=== PATIENT | female | born 1935 | race Hispanic/Latino ===

== ENCOUNTER 2016-12-29 22:41 | Inpatient (IN) | payer MEDICARE, OTHER ==
[2016-12-29 22:41] VITALS: PULSE 80; BMI 19.7
[2016-12-29 23:24] LABS: CHLORIDE 99 mmol/L (98-107); SODIUM 138 mmol/L (132-148)
[2016-12-29 23:25] LABS: POTASSIUM 4.1 mmol/L (3.6-5.2)
[2016-12-29 23:26] LABS: BASO # 0.1 K/uL (0.0-0.2); BASO % 2.7 % (0.0-2.0); EOS # 0.1 K/uL (0.0-0.7); EOS % 1.8 % (0.0-4.0); HEMATOCRIT 11.8 % (34.0-47.0); LYMPH # 1.4 K/uL (1.0-4.3); LYMPH % 31.5 % (20.0-40.0); MEAN CORPUSCULAR HEMOGLOBIN 34.4 pg (27.0-31.0); MEAN CORPUSCULAR HGB CONC 34.2 g/dL (33.0-37.0); MEAN PLATELET VOLUME 9.4 fL (7.2-11.7); MONO # 0.3 K/uL (0.0-0.8); MONO % 7.5 % (0.0-10.0); NRBC % 1.2 % (0.0-2.0); RED CELL DISTRIBUTION WIDTH 33.1 % (11.5-14.5)
[2016-12-29 23:27] LABS: ALKALINE PHOSPHATASE 68 U/L (38-126); ALT/SGPT 27 U/L (9-52); AST/SGOT 15 U/L (14-36); BILIRUBIN,TOTAL 1.3 mg/dL (0.2-1.3); BLOOD UREA NITROGEN 34 mg/dL (7-17); CARBON DIOXIDE 28 mmol/L (22-30); GFR AFRICAN-AMERICAN > 60; GLUCOSE,RANDOM 113 mg/dL (65-105); TOTAL PROTEIN 6.6 g/dL (6.3-8.3)
[2016-12-29 23:28] LABS: ALB/GLOB RATIO 0.7 (1.0-2.1); CALCIUM 7.9 mg/dl (8.6-10.4)
[2016-12-29 23:29] LABS: INR 1.7; WHITE BLOOD COUNT 4.5 K/uL (4.8-10.8)
[2016-12-29 23:30] LABS: MEAN CELL VOLUME 100.7 fL (81.0-99.0); PLATELET COUNT 299 K/uL (130-400)
--- NOTE | 2016-12-30 00:54 | CP.PCM.CON ---
History of Present Illness - History of Present Illness History of Present Illness: 81 y/o female,[place] resident with h/o chronic anemia,CHF (EF 25-30%0 09/2016,HTN transferred from [place] for Hb <5.In ER Hb is 4 gm/dl.not tachcardiac(not on beta blockers).Initial systolic BP was in the 70's,received fluids .Last BP in ER 96/ 60mmHg.Stool brown in color.Occult blood pending patient denies chest pain,palpitations,shortness of breath or dizziness.Patient was admitted 11/2016 for pneumonia ,at time of admission Hb was 4.7 Review of Systems - Review of Systems Systems not reviewed;Unavailable: Unstable Vital Signs - Constitutional Constitutional: absent: Chills Additional comments: denies loss of apetite but states that she eats very little - EENT Nose/Mouth/Throat: absent: Epistaxis - Cardiovascular Cardiovascular: absent: Chest Pain, Edema, Palpitations, Rapid Heart Rate - Respiratory Respiratory: absent: Cough, Dyspnea - Gastrointestinal Gastrointestinal: absent: Abdominal Pain, Diarrhea - Neurological Neurological: absent: Headaches, Syncope - Hematologic/Lymphatic Hematologic: As Per HPI. absent: Easy Bleeding Past Patient History - Infectious Disease Hx of Infectious Diseases: None - Past Medical History & Family History Past Medical History?: Yes - Past Social History Smoking Status: Never Smoked - CARDIAC Hx Cardiac Disorders: Yes Hx Angina: Yes Hx Atrial Fibrillation: Yes Hx Congestive Heart Failure: Yes Hx Hypertension: Yes Other/Comment: Chronic ischemic heart disease - PULMONARY Hx Chronic Obstructive Pulmonary Disease (COPD): Yes Hx Pneumonia: Yes - NEUROLOGICAL Hx Neurological Disorder: No - HEENT Hx HEENT Problems: Yes Hx Blind: Yes (legally) - RENAL Hx Chronic Kidney Disease: No - ENDOCRINE/METABOLIC Hx Endocrine Disorders: No - HEMATOLOGICAL/ONCOLOGICAL Hx Anemia: Yes - INTEGUMENTARY Hx Dermatological Problems: No - MUSCULOSKELETAL/RHEUMATOLOGICAL Hx Fractures: Yes (R hip fracture w/ surgery) - GASTROINTESTINAL Hx Gastrointestinal Disorders: No Hx Diverticulitis: Yes - GENITOURINARY/GYNECOLOGICAL Hx Genitourinary Disorders: No - PSYCHIATRIC Hx Psychophysiologic Disorder: No Hx Substance Use: No - SURGICAL HISTORY Hx Surgeries: Yes Hx Orthopedic Surgery: Yes (hip surgery as per patient) - ANESTHESIA Hx Anesthesia: Yes Hx Anesthesia Reactions: No Hx Malignant Hyperthermia: No Meds Allergies/Adverse Reactions: Allergies Allergy/AdvReac Type Severity Reaction Status Date / Time aspirin Allergy Verified 11/21/16 02:08 ciprofloxacin [From Cipro] Allergy Verified 11/21/16 02:08 ciprofloxacin HCl Allergy Verified 11/21/16 02:08 [From Cipro] Penicillins Allergy Verified 11/21/16 02:08 cefepime AdvReac Unknown ARRHYTHMIA Verified 11/21/16 02:08 Physical Exam - Constitutional Appears: Non-toxic - Head Exam Head Exam: ATRAUMATIC, NORMAL INSPECTION, NORMOCEPHALIC - Eye Exam Eye Exam: EOMI, Normal appearance, PERRL - ENT Exam ENT Exam: Mucous Membranes Moist - Neck Exam Neck exam: Positive for: Normal Inspection - Respiratory Exam Respiratory Exam: Clear to Auscultation Bilateral, NORMAL BREATHING PATTERN. absent: Accessory Muscle Use - Cardiovascular Exam Cardiovascular Exam: REGULAR RHYTHM, Systolic Murmur. absent: JVD - GI/Abdominal Exam GI & Abdominal Exam: Normal Bowel Sounds, Soft. absent: Tenderness - Extremities Exam Extremities exam: Positive for: normal inspection, pedal pulses present. Negative for: joint swelling, pedal edema - Neurological Exam Neurological exam: Alert, Oriented x3 - Skin Skin Exam: Dry, Pallor Results - Vital Signs Recent Vital Signs: Last Vital Signs Temp 99.9 F H 12/29/16 23:01 Pulse 87 12/29/16 23:01 Resp 19 12/29/16 23:01 BP 70/30 L 12/29/16 23:01 Pulse Ox 100 12/29/16 23:01 - Labs Result Diagrams: 12/29/16 23:14 12/29/16 23:14 Labs: Laboratory Results - last 24 hr 12/29/16 12/29/16 12/30/16 23:14 23:46 00:15 WBC 4.5 L D RBC 1.17 L Hgb 4.0 L* D Hct 11.8 L MCV 100.7 H D MCH 34.4 H MCHC 34.2 RDW 33.1 H Plt Count 299 D MPV 9.4 Neut % (Auto) 56.5 Lymph % (Auto) 31.5 [place] % (Auto) 7.5 Eos % (Auto) 1.8 Baso % (Auto) 2.7 H Neut # 2.5 Lymph # 1.4 [place] # 0.3 Eos # 0.1 Baso # 0.1 PT 19.3 H INR 1.7 APTT 41 H Sodium 138 Potassium 4.1 Chloride 99 Carbon Dioxide 28 Anion Gap 15 BUN 34 H Creatinine 0.8 Est GFR ( Amer) > 60 Est GFR (Non-Af Amer) > 60 Random Glucose 113 H Calcium 7.9 L Total Bilirubin 1.3 AST 15 ALT 27 Alkaline Phosphatase 68 Total Protein 6.6 Albumin 2.6 L Globulin 4.0 H Albumin/Globulin Ratio 0.7 L Stool Occult Blood Negative Blood Type A POSITIVE Antibody Screen Negative - EKG Data EKG Interpreted by: Myself EKG shows normal: Sinus rhythm (sinus arrythmia with nonspecific T wave changes) - Imaging and Cardiology Chest x-ray Status: Pending Assessment & Plan - Assessment and Plan (Free Text) Assessment: 1.severe anemia in patient with Chronic anemia Transfuse PRBC f/u Hb Hematology evaluation B12,FA levels 2.H/o HTN/CHF on diuretics Chest xray pendingj
[2016-12-30 01:33] LABS: EOSINOPHIL 2 % (0-4); NEUTROPHIL 57 % (50-75); NUCLEATED RED BLOOD CELL 1 % (0-0); REACTIVE LYMPHOCYTES 13 % (0-0); TOTAL CELLS COUNTED 100
[2016-12-30 01:34] LABS: LARGE PLATELETS PRESENT
--- NOTE | 2016-12-30 03:07 | C.PDOC ---
History Of Present Illness 81 year old female presents to the ED with abnormal labs that occurred today. Patients fdc measured her hemoglobin to be at 5. Patient notes having severe anemia in the past and c/o general weakness and tiredness. Patient denies any nausea, vomiting, diarrhea, fever, chills, or any other complaints. Chief Complaint (Nursing): Abnormal Labs History Per: Patient History/Exam Limitations: no limitations Onset/Duration Of Symptoms: Hrs Current Symptoms Are (Timing): Still Present Severity: Mild Past Medical History Reviewed: Historical Data, Nursing Documentation, Vital Signs Vital Signs: Last Vital Signs Temp 98.5 F 12/30/16 04:15 Pulse 94 H 12/30/16 04:15 Resp 19 12/30/16 04:15 BP 84/45 L 12/30/16 04:15 Pulse Ox 100 12/30/16 03:13 - Medical History PMH: Anemia, Arthritis (R HIP +SURGERY), Atrial Fibrillation, Back Problems ( fatigue fracture of lumbar region with sequela), Cardia Arrhythmia, CHF, COPD, Diverticulitis, Fractures (R hip fracture w/ surgery), HTN, Pneumonia Denies: Chronic Kidney Disease - [facility] Procedures OPEN REDUC-INT FIX FEMUR (02/22/13) PACKED CELL TRANSFUSION (09/16/14) TRANSFUSE NONAUT RED BLOOD CELLS IN PERIPH VEIN, PERC (11/21/16) Family History: States: Unknown Family Hx - Social History Hx Tobacco Use: No Hx Alcohol Use: No Hx Substance Use: No - Immunization History Hx Tetanus Toxoid Vaccination: No Hx Influenza Vaccination: No Hx Pneumococcal Vaccination: No Review Of Systems Except As Marked, All Systems Reviewed And Found Negative. Constitutional: Negative for: Fever, Chills Gastrointestinal: Negative for: Nausea, Vomiting, Diarrhea Neurological: Positive for: Weakness (General), Numbness (General) Physical Exam - Physical Exam Appears: No Acute Distress Skin: Warm, Dry, Pale Head: Atraumatic, Normacephalic Eye(s): bilateral: Normal Inspection Chest: Symmetrical Cardiovascular: Rhythm Regular, No Murmur Respiratory: Normal Breath Sounds, No Rales, No Rhonchi, No Wheezing Gastrointestinal/Abdominal: Soft, No Tenderness Neurological/Psych: Oriented x3, Normal Speech, Normal Cognition ED Course And Treatment - Laboratory Results Result Diagrams: 12/29/16 23:14 04/09/17 23:14 ECG: Interpreted By Me, Viewed By Me ECG Rhythm: Sinus Rhythm (93), Atrial Fibrillation O2 Sat by Pulse Oximetry: 100 (Room air) Pulse Ox Interpretation: Normal Medical Decision Making Medical Decision Making: Plans: -IV Fluids -EKG -Blood labs -Protonix -Iron -Vit. B12 -Folate -Reassess and disposition ICU was consulted and patient was accepted. Pt consent to transfusion. Disposition - Disposition Disposition: HOSPITALIZED Disposition Time: 12:30 Condition: FAIR - Clinical Impression Clinical Impression: Anemia - Scribe Statement The provider has reviewed the documentation as recorded by the Scribe Leon byrd All medical record entries made by the Scribe were at my direction and personally dictated by me. I have reviewed the chart and agree that the record accurately reflects my personal performance of the history, physical exam, medical decision making, and the department course for this patient. I have also personally directed, reviewed, and agree with the discharge instructions and disposition.
--- NOTE | 2016-12-30 08:51 | RAD ---
HISTORY: new admission, leukopenia COMPARISON: 12/02/2016 FINDINGS: LUNGS: Worsening dense opacification seen within the right upper to mid lung zone as well as the left lung base with associated small to moderate left pleural effusion. Additional milder patchy consolidative changes at the right lung base and left hilar region. Diffuse increased interstitial lung markings with scattered nodules/nodularity throughout both lungs. PLEURA: As above. CARDIOVASCULAR: Cardiomegaly. Calcification at the aortic knob. OSSEOUS STRUCTURES: Degenerative changes in the spine and shoulders. VISUALIZED UPPER ABDOMEN: Normal. OTHER FINDINGS: None. IMPRESSION: Worsening dense opacification seen within the right upper to mid lung zone as well as the left lung base with associated small to moderate left pleural effusion. Additional milder patchy consolidative changes at the right lung base and left hilar region. Diffuse increased interstitial lung markings with scattered nodules/nodularity throughout both lungs.
[2016-12-30] MEDS: Pantoprazole 40 mg EC Tab PO SCH (09:35)
[2016-12-30 11:11] LABS: BASO # 0.1 K/uL (0.0-0.2); BASO % 1.4 % (0.0-2.0); EOS % 0.7 % (0.0-4.0); HEMATOCRIT 26.5 % (34.0-47.0); LYMPH # 0.7 K/uL (1.0-4.3); LYMPH % 16.5 % (20.0-40.0); MEAN CORPUSCULAR HEMOGLOBIN 30.3 pg (27.0-31.0); MEAN PLATELET VOLUME 10.2 fL (7.2-11.7); MONO # 0.3 K/uL (0.0-0.8); MONO % 6.3 % (0.0-10.0); NRBC % 0.7 % (0.0-2.0); RED CELL DISTRIBUTION WIDTH 15.6 % (11.5-14.5); WHITE BLOOD COUNT 4.3 K/uL (4.8-10.8)
[2016-12-30 11:16] LABS: MEAN CELL VOLUME 91.7 fL (81.0-99.0)
[2016-12-30 11:23] LABS: IRON 100 ug/dL (37-170)
--- NOTE | 2016-12-30 11:55 | CP.CCUPN ---
CCU Subjective - Physician Review Subjective (Free Text): Patient was seen and examined at bedside. Patient is alert, awake, and oriented. She complains of chronic fatigue and weakness. Patient was sent from [place] due to hemoglobin of 5. Hemoglobin was 4 in the ED. Patient was transfused 3 units of PRBCs in the ICU. Repeat CBC was 8.8. Patient is stable and order placed to have patient transferred to Med/Surg. CCU Objective - Vital Signs / Intake & Output Vital Signs (Last 4 hours): Vital Signs Temp Pulse Resp BP Pulse Ox 12/30/16 11:02 92 H 19 97/51 L 98 12/30/16 11:00 94 H 19 98 12/30/16 10:47 94 H 21 94/52 L 97 12/30/16 10:33 100 H 23 103/59 L 97 12/30/16 10:17 104 H 21 106/62 91 L 12/30/16 10:02 97 H 18 98/64 L 99 12/30/16 10:00 96 H 19 100 12/30/16 09:47 98 H 21 102/63 96 12/30/16 09:32 106 H 17 101/57 L 94 L 12/30/16 09:17 97 H 15 91/56 L 99 12/30/16 09:02 97 H 18 95/54 L 99 12/30/16 09:00 98.1 F 96 H 15 95/54 L 99 12/30/16 08:47 94 H 16 91/54 L 99 12/30/16 08:46 93 H 17 99 12/30/16 08:32 97 H 12 93/58 L 100 12/30/16 08:30 95 H 16 95/55 L 99 12/30/16 08:17 97 H 15 95/55 L 99 12/30/16 08:02 100 H 20 95/56 L 98 12/30/16 08:00 98.2 F 97 H 17 93/54 L 98 Intake and Output (Last 8hrs): Intake & Output 12/29/16 12/30/16 12/30/16 22:59 06:59 14:59 Intake Total 375 575 Output Total 0 Balance 375 575 Weight 101 lb 6.4 oz Intake: Blood Product 375 575 Red Blood Cells Cpd As1 325 Lr Unit [id number] Red Blood Cells Cpd As1 0 325 Lr Unit [id number] Output: Urine 0 Urine, Voided 0 Other: Voiding Method Incontinent - Physical Exam Physical Exam Limitations: Positive for: Other (cachetic ) Head: Positive for: Atraumatic, Normocephalic Pupils: Positive for: PERRL Extroacular Muscles: Positive for: EOMI Conjunctiva: Positive for: Normal Mouth: Positive for: Dry Pharnyx: Positive for: Normal. Negative for: ERYTHEMA, EXUDATE Neck: Positive for: Normal Range of Motion Respiratory/Chest: Positive for: Decreased Breath Sounds, Rales Cardiovascular: Positive for: Regular Rate and Rhythm, Normal S1, S2 Abdomen: Positive for: Normal Bowel Sounds. Negative for: Tenderness, Distention Upper Extremity: Positive for: Normal Inspection, NORMAL PULSES Lower Extremity: Positive for: Normal Inspection Neurological: Positive for: GCS=15, CN II-XII Intact, Speech Normal Skin: Positive for: Warm, Dry Psychiatric: Positive for: Alert, Oriented x 3 - Medications Active Medications: Active Medications Generic Name Dose Route Start Last Admin Trade Name Freq PRN Reason Stop Dose Admin Albuterol/Ipratropium 3 ml 12/30/16 14:00 Duoneb 3 Mg/0.5 Mg (3 Ml) Ud INH RQ6 REBECCA Guaifenesin 100 mg 12/30/16 11:04 Robitussin PO Q4H PRN Cough Pantoprazole Sodium 40 mg 12/30/16 10:00 12/30/16 09:35 Protonix Ec Tab PO 40 mg DAILY REBECCA Administration - Patient Studies Lab Studies: Lab Studies 12/30/16 12/30/16 Range/Units 11:02 01:25 WBC 4.3 L (4.8-10.8) K/uL RBC 2.89 L (3.80-5.20) Mil/uL Hgb 8.8 L D (11.0-16.0) g/dL Hct 26.5 L (34.0-47.0) % MCV 91.7 D (81.0-99.0) fL MCH 30.3 (27.0-31.0) pg MCHC 33.0 (33.0-37.0) g/dL RDW 15.6 H (11.5-14.5) % Plt Count 274 (130-400) K/uL MPV 10.2 (7.2-11.7) fL Neut % (Auto) 75.1 H (50.0-75.0) % Lymph % (Auto) 16.5 L (20.0-40.0) % [place] % (Auto) 6.3 (0.0-10.0) % Eos % (Auto) 0.7 (0.0-4.0) % Baso % (Auto) 1.4 (0.0-2.0) % Neut # 3.2 (1.8-7.0) K/uL Lymph # 0.7 L (1.0-4.3) K/uL [place] # 0.3 (0.0-0.8) K/uL Eos # 0.0 (0.0-0.7) K/uL Baso # 0.1 (0.0-0.2) K/uL Iron 100 (37-170) ug/dL TIBC 135 L (250-450) ug/dL % Saturation 75 H (20-55) Folate > 20.0 ng/mL Laboratory Results - last 24 hr 12/30/16 12/30/16 01:25 11:02 WBC 4.3 L RBC 2.89 L Hgb 8.8 L D Hct 26.5 L MCV 91.7 D MCH 30.3 MCHC 33.0 RDW 15.6 H Plt Count 274 MPV 10.2 Neut % (Auto) 75.1 H Lymph % (Auto) 16.5 L [place] % (Auto) 6.3 Eos % (Auto) 0.7 Baso % (Auto) 1.4 Neut # 3.2 Lymph # 0.7 L [place] # 0.3 Eos # 0.0 Baso # 0.1 Iron 100 TIBC 135 L % Saturation 75 H Folate > 20.0 Critical Care Progress Note - Nutrition Nutrition: Nutrition Category Date Time Status Dysphagia/Modified Consistency Diet [DIET] Diets 12/30/16 Dinner Active Assessment/Plan - Assessment and Plan (Free Text) Assessment: 81 y/o female, with PMHx: of chronic anemia, chronic neutropenia, HTN, and CHF ( EF 25-30% 09/2016) presents for HB< 5, blood pressure 70/30, not tachycardiac on admission. Plan: Neuro: Alert, awake, oriented x 3 Monitor Pulm: Hx of CHF (EF 25-30% 09/2016) CXR: Worsening dense opacification seen within the right upper to mid lung zone as well as the left lung base with associated small to moderate left pleural effusion. Additional milder patchy consolidative changes at the right lung base and left hilar region. Diffuse increased interstitial lung markings with scattered nodules/nodularity throughout both lungs. Hx of COPD: restarted home meds CV: CHF (EF 25-30% 09/2016) GI: Stool occult - negative Dysphagia diet Heme: Chronic Neutropenia Initial hemoglobin of 4, s/p 3 units PRBCs, hemoglobin of 8.8 now. Folate: >20, TIBC: 135, % saturation: 75 PT/OT Prophylaxis: GI: Protonix DVT: Contraindicated, SCDs Patient is stable and order placed to have patient transferred to Med/Surg. Mk [address] Dr[address] DO, PGY-1
[2016-12-30] MEDS: guaiFENesin 100 mg/5 ml Syrup UD PO PRN (14:34)
--- NOTE | 2016-12-30 19:03 | CP.PCM.HP ---
History of Present Illness - History of Present Illness History of Present Illness: 81-year-old female, [place] resident with history of chronic anemia, CHF (EF 25-30% ), hypertension transferred from [place] for Hb <5. In the ER Hb is 4 g/dl. Not tachycardia(not on beta penelope). Initial systolic BP was in the 70s, received fluids. Last BP in ER 96/60 mmHg. Stool brown in color. Occult blood pending. Patient denies chest pain, palpitation, SOB or dizziness. Patient was admitted 11/2016 for pneumonia. At time of admission Hb was 4.7. Present on Admission - Present on Admission Any Indicators Present on Admission: No Past Patient History - Infectious Disease Hx of Infectious Diseases: None - Past Medical History & Family History Past Medical History?: Yes - Past Social History Smoking Status: Never Smoked - CARDIAC Hx Atrial Fibrillation: Yes Hx Cardia Arrhythmia: Yes Hx Congestive Heart Failure: Yes Hx Hypertension: Yes - PULMONARY Hx Chronic Obstructive Pulmonary Disease (COPD): Yes Hx Pneumonia: Yes - NEUROLOGICAL Hx Neurological Disorder: No - HEENT Hx HEENT Problems: Yes Hx Blind: Yes (legally) - RENAL Hx Chronic Kidney Disease: No - ENDOCRINE/METABOLIC Hx Endocrine Disorders: No - HEMATOLOGICAL/ONCOLOGICAL Hx Anemia: Yes - INTEGUMENTARY Hx Dermatological Problems: No - MUSCULOSKELETAL/RHEUMATOLOGICAL Hx Arthritis: Yes (R HIP +SURGERY) Hx Fractures: Yes (R hip fracture w/ surgery) - GASTROINTESTINAL Hx Diverticulitis: Yes - GENITOURINARY/GYNECOLOGICAL Hx Genitourinary Disorders: No - PSYCHIATRIC Hx Substance Use: No - SURGICAL HISTORY Hx Surgeries: Yes Hx Orthopedic Surgery: Yes (hip surgery as per patient) - ANESTHESIA Hx Anesthesia: Yes Hx Anesthesia Reactions: No Hx Malignant Hyperthermia: No Meds Allergies/Adverse Reactions: Allergies Allergy/AdvReac Type Severity Reaction Status Date / Time aspirin Allergy Verified 11/21/16 02:08 ciprofloxacin [From Cipro] Allergy Verified 11/21/16 02:08 ciprofloxacin HCl Allergy Verified 11/21/16 02:08 [From Cipro] Penicillins Allergy Verified 11/21/16 02:08 cefepime AdvReac Unknown ARRHYTHMIA Verified 11/21/16 02:08 Physical Exam - Constitutional Appears: Well - Head Exam Head Exam: ATRAUMATIC, NORMAL INSPECTION, NORMOCEPHALIC - Eye Exam Eye Exam: EOMI, Normal appearance, PERRL Pupil Exam: NORMAL ACCOMODATION, PERRL - ENT Exam ENT Exam: Mucous Membranes Moist, Normal Exam - Neck Exam Neck exam: Positive for: Normal Inspection - Respiratory Exam Respiratory Exam: Decreased Breath Sounds - Cardiovascular Exam Cardiovascular Exam: REGULAR RHYTHM, +S1, +S2 - GI/Abdominal Exam GI & Abdominal Exam: Diminished Bowel Sounds, Soft - Rectal Exam Rectal Exam: Deferred Results - Vital Signs Recent Vital Signs: Last Vital Signs Temp 99.3 F 12/30/16 16:00 Pulse 97 H 12/30/16 17:00 Resp 21 12/30/16 17:00 BP 95/57 L 12/30/16 16:08 Pulse Ox 99 12/30/16 17:00 - Labs Result Diagrams: 01/08/17 11:15 01/08/17 11:15 Labs: Laboratory Results - last 24 hr 12/30/16 12/30/16 01:25 11:02 WBC 4.3 L RBC 2.89 L Hgb 8.8 L D Hct 26.5 L MCV 91.7 D MCH 30.3 MCHC 33.0 RDW 15.6 H Plt Count 274 MPV 10.2 Neut % (Auto) 75.1 H Lymph % (Auto) 16.5 L [place] % (Auto) 6.3 Eos % (Auto) 0.7 Baso % (Auto) 1.4 Neut # 3.2 Lymph # 0.7 L [place] # 0.3 Eos # 0.0 Baso # 0.1 Iron 100 TIBC 135 L % Saturation 75 H Vitamin B12 707 Folate > 20.0 Assessment & Plan (1) Anemia Status: Acute (2) CHF (congestive heart failure) Status: Acute (3) Chest pain Status: Acute (4) Compression deformity of vertebra Status: Acute (5) Contusion of wrist Status: Acute (6) Dehydration Status: Acute (7) Diastolic CHF, acute on chronic Status: Acute (8) Edema Status: Acute (9) Fatigue Status: Acute (10) Fever Status: Acute (11) Lung mass Status: Acute (12) MRSA (methicillin resistant Staphylococcus aureus) carrier Status: Acute (13) Pancytopenia Status: Acute (14) Pneumonia Status: Acute (15) Low back pain Status: Chronic (16) Severe anemia Status: Chronic - Assessment and Plan (Free Text) Plan: Consult ophthalmic asst Consult ID Follow-up S/P Transfuse 3 units of PRBC IV fluids Iron Vitamin B-12 Folate
[2016-12-31] MEDS: Albuterol-Ipratrop 3 mg / 0.5 (3 ml) UD INH SCH ×4 (01:42→19:34)
--- NOTE | 2016-12-31 10:13 | CP.PCM.PN ---
Subjective - Date & Time of Evaluation Date of Evaluation: 12/31/16 Time of Evaluation: 11:20 - Subjective Subjective: clinically same Objective - Vital Signs/Intake and Output Vital Signs (last 24 hours): Temp Pulse Resp BP Pulse Ox 97.6 F 84 20 79/44 L 97 12/31/16 07:00 12/31/16 07:39 12/31/16 07:00 12/31/16 07:39 12/31/16 07:00 Intake and Output: 12/31/16 12/31/16 06:59 18:59 Intake Total 0 Balance 0 - Medications Medications: Current Medications Acetaminophen (Tylenol 325mg Tab) 650 mg PO Q6 PRN PRN Reason: Pain, moderate (4-7) Albuterol/Ipratropium (Duoneb 3 Mg/0.5 Mg (3 Ml) Ud) 3 ml INH RQ6 REBECCA Last Admin: 12/31/16 07:40 Dose: 3 ml Guaifenesin (Robitussin) 100 mg PO Q4H PRN PRN Reason: Cough Last Admin: 12/30/16 14:34 Dose: 100 mg Pantoprazole Sodium (Protonix Ec Tab) 40 mg PO DAILY REBECCA Last Admin: 12/30/16 09:35 Dose: 40 mg - Labs Labs: 12/30/16 11:02 PT 19.3 SECONDS (9.7-12.2) H 12/29/16 23:14 INR 1.7 12/29/16 23:14 APTT 41 SECONDS (21-34) H 12/29/16 23:14 - Constitutional Appears: Well - Head Exam Head Exam: ATRAUMATIC, NORMAL INSPECTION, NORMOCEPHALIC - Eye Exam Eye Exam: EOMI, Normal appearance, PERRL Pupil Exam: NORMAL ACCOMODATION, PERRL - ENT Exam ENT Exam: Mucous Membranes Moist, Normal Exam - Neck Exam Neck Exam: Full ROM, Normal Inspection. absent: Lymphadenopathy - Respiratory Exam Respiratory Exam: Decreased Breath Sounds - Cardiovascular Exam Cardiovascular Exam: REGULAR RHYTHM, +S1, +S2 - GI/Abdominal Exam GI & Abdominal Exam: Soft, Diminished Bowel Sounds - Rectal Exam Rectal Exam: Deferred Assessment and Plan - Assessment and Plan (Free Text) Plan: severe anemia in patient with Chronic anemia Transfuse PRBC iv fluid f/u Hb Hematology evaluation B12,FA levels H/o HTN/CHF Guaifenesin Mupirocin on diuretics Cxr pending
[2016-12-31] MEDS: Pantoprazole 40 mg EC Tab PO SCH (10:28)
[2016-12-31] MEDS: guaiFENesin 100 mg/5 ml Syrup UD PO PRN (10:29)
[2016-12-31] MEDS: Sodium Chloride 0.9% 1,000 ML IV SCH (13:24)
--- NOTE | 2016-12-31 13:49 | CT ---
CT abdomen and pelvis without IV contrast Indication: abdominal pain/hgb 4.5 Technique: Contiguous axial images of the abdomen and pelvis. No oral or IV contrast administered. Coronal and Sagittal reformats generated and reviewed. This CT exam was performed using 1 or more of the falling dose reduction techniques: Automated exposure control, adjustment of the MAA and/or kV according to patient size, and/or use of iterative reconstruction technique. Radiation dose: Total exam DLP = 346.71 mGy-cm. Comparison: CT of the abdomen and pelvis without contrast performed 05/24/13 Findings: The lung bases reveal moderate bilateral pleural effusions, consolidations, and fibrotic changes. Partially imaged cardiomegaly. Dense atherosclerotic calcifications. Large abdominal and pelvic ascites. Anasarca. Nodular hepatic contour. Intrahepatic biliary ductal dilatation. Indeterminate 1.0 cm left hepatic lobe (series 3, image 58) and 1.1 cm right inferior hepatic lobe hypodense lesions (Series 3, image 76). 7 mm hypodensity within the anterior left hepatic lobe (series 3, image 40). Cholelithiasis. Marked enlargement and nodules, left adrenal gland. The unenhanced spleen, kidneys, pancreas, and right adrenal gland appear unremarkable. The stomach is nondistended. Moderate hiatal hernia. The bowel loops appear within normal limits of caliber without evidence of intestinal obstruction. There is no definite free air. Uterus is present. Under distended urinary bladder limits evaluation. Metallic stephanie and screw fixation of the right femur. Diffuse osseous demineralization. Degenerative changes of the spine and left hip. T12 and L2 compression fractures. Impression: Moderate bilateral pleural effusions, consolidations, and fibrosis. Partially imaged cardiomegaly. Dense atherosclerotic calcifications. Large abdominal and pelvic ascites. Anasarca. Nodular hepatic contour may be seen in the setting of cirrhosis. Intrahepatic biliary ductal dilatation. Indeterminate 1.0 cm left hepatic lobe and 1.1 cm right inferior hepatic lobe hypodense lesions. 7 mm hypodensity within the anterior left hepatic lobe. Recommend further evaluation with dedicated cross-sectional CT of the liver Cholelithiasis. Marked enlargement and nodules, left adrenal gland. Similar in appearance to CT performed 05/24/13 Recommend dedicated cross-sectional imaging for further characterization if not already performed. Moderate hiatal hernia. Metallic stephanie and screw fixation of the right femur. Diffuse osseous demineralization. Degenerative changes of the spine and left hip. T12 and L2 compression fractures.
[2017-01-01] MEDS: Albuterol-Ipratrop 3 mg / 0.5 (3 ml) UD INH SCH ×4 (01:04→20:25)
[2017-01-01] MEDS: Sodium Chloride 0.9% 1,000 ML IV SCH ×2 (05:52→13:24)
[2017-01-01 08:17] LABS: BASO # 0.1 K/uL (0.0-0.2); BASO % 2.5 % (0.0-2.0); EOS # 0.1 K/uL (0.0-0.7); EOS % 1.6 % (0.0-4.0); HEMATOCRIT 24.1 % (34.0-47.0); LYMPH # 0.8 K/uL (1.0-4.3); MEAN CELL VOLUME 93.5 fL (81.0-99.0); MEAN CORPUSCULAR HEMOGLOBIN 31.1 pg (27.0-31.0); MEAN CORPUSCULAR HGB CONC 33.3 g/dL (33.0-37.0); MEAN PLATELET VOLUME 9.7 fL (7.2-11.7); MONO # 0.3 K/uL (0.0-0.8); MONO % 7.4 % (0.0-10.0); NRBC % 0.8 % (0.0-2.0); RED CELL DISTRIBUTION WIDTH 16.1 % (11.5-14.5); WHITE BLOOD COUNT 4.1 K/uL (4.8-10.8)
[2017-01-01] MEDS ORDERED: Azithromycin 500mg/250ML NS 250 ML IVPB STA (11:37)
[2017-01-01] MEDS ORDERED: Moxifloxacin IV 400mg/250ml NS 250 ML IVPB SCH (11:45)
[2017-01-01] MEDS: Mupirocin 2% Ointment (NASAL) NAS SCH ×2 (12:11→18:37)
[2017-01-01] MEDS: Pantoprazole 40 mg EC Tab PO SCH (12:19)
--- NOTE | 2017-01-01 14:07 | CP.PCM.CON ---
<Hector Simons - Last Filed: 01/01/17 14:24> History of Present Illness - History of Present Illness History of Present Illness: PGY4 GI Fellow Consult Note Patient is an 81yo female with PMHx significant for chronic anemia with suspicion for MDS (not biopsy proven), CHF (EF 35%), COPD, HTN and recent finding of a questionable RUL lung lesion on prior admissions who presented from [place] with severe anemia noted on CBC. The patient is a poor historian. The patient has had nearly identical admissions in the past. She has refused work up for multiple medical issues including her lung lesion and suspected MDS and per EMR, has even refused blood transfusions until she is profoundly dyspneic. At [place], patient was found to be SOB and noted to have HGB of 5 on CBC. She was transferred to our facility where she was admitted initially to ICU and transfused 3 units PRBCs with appropriate response in HGB to 8.8. She denies any overt blood loss such as hematochezia, melena, hematemesis, hematuria. Does admit to modest weight loss over the last year, nausea and some chest/abdominal discomfort after meals. Of note, on CT A/P performed yesterday does raise suspicion for cirrhosis given nodular contour of liver and there are multiple liver lesions noted with largest being 1.1cm. She also has moderate abdominal ascites. PMHx: See HPI PSHx: Right femur ORIF FHx: Denies Social: Denies tobacco, EtOH or illicit drug use presently or previously Endo: Denies prior endoscopic evaluation Review of Systems - Constitutional Constitutional: Weight Loss. absent: Anorexia, Chills, Fever - EENT Eyes: absent: Change in Vision Nose/Mouth/Throat: absent: Sore Throat - Cardiovascular Cardiovascular: Chest Pain, Dyspnea. absent: Palpitations - Respiratory Respiratory: Dyspnea. absent: Cough, Excessive Mucous Production - Gastrointestinal Gastrointestinal: Abdominal Pain, Nausea. absent: Constipation, Cramping, Diarrhea, Dyspepsia, Dysphagia, Hematemesis, Hematochezia, Melena, Odynophagia, Vomiting - Genitourinary Genitourinary: absent: Dysuria, Urinary Frequency, Urinary Urgency - Musculoskeletal Musculoskeletal: absent: Back Pain, Neck Pain - Integumentary Integumentary: absent: New Lesions, Rash - Neurological Neurological: absent: Dizziness, Numbness, Focal Weakness - Psychiatric Psychiatric: absent: Anxiety, Depression - Endocrine Endocrine: absent: Polydipsia, Polyphagia, Polyuria - Hematologic/Lymphatic Hematologic: absent: Easy Bleeding, Easy Bruising, Lymphadenopathy Past Patient History - Infectious Disease Hx of Infectious Diseases: None - Past Medical History & Family History Past Medical History?: Yes - Past Social History Smoking Status: Never Smoked - CARDIAC Hx Congestive Heart Failure: Yes - PULMONARY Hx Chronic Obstructive Pulmonary Disease (COPD): Yes - NEUROLOGICAL Hx Neurological Disorder: No - HEENT Hx HEENT Problems: Yes Hx Blind: Yes (legally) - RENAL Hx Chronic Kidney Disease: No - ENDOCRINE/METABOLIC Hx Endocrine Disorders: No - HEMATOLOGICAL/ONCOLOGICAL Hx Anemia: Yes - INTEGUMENTARY Hx Dermatological Problems: No - MUSCULOSKELETAL/RHEUMATOLOGICAL Hx Arthritis: Yes - GASTROINTESTINAL Hx Diverticulitis: Yes - GENITOURINARY/GYNECOLOGICAL Hx Genitourinary Disorders: No - PSYCHIATRIC Hx Substance Use: No - SURGICAL HISTORY Hx Surgeries: Yes Hx Orthopedic Surgery: Yes (hip surgery as per patient) - ANESTHESIA Hx Anesthesia: Yes Hx Anesthesia Reactions: No Hx Malignant Hyperthermia: No Meds Allergies/Adverse Reactions: Allergies Allergy/AdvReac Type Severity Reaction Status Date / Time aspirin Allergy Verified 11/21/16 02:08 ciprofloxacin [From Cipro] Allergy Verified 11/21/16 02:08 ciprofloxacin HCl Allergy Verified 11/21/16 02:08 [From Cipro] Penicillins Allergy Verified 11/21/16 02:08 cefepime AdvReac Unknown ARRHYTHMIA Verified 11/21/16 02:08 - Medications Medications: Current Medications Acetaminophen (Tylenol 325mg Tab) 650 mg PO Q6 PRN PRN Reason: Pain, moderate (4-7) Last Admin: 12/31/16 10:28 Dose: 650 mg Albuterol/Ipratropium (Duoneb 3 Mg/0.5 Mg (3 Ml) Ud) 3 ml INH RQ6 [facility] Last Admin: 01/01/17 13:36 Dose: 3 ml Guaifenesin (Robitussin) 100 mg PO Q4H PRN PRN Reason: Cough Last Admin: 12/31/16 10:29 Dose: 100 mg Mupirocin (Bactroban 2% Nasal) 0.5 gm JENNIFER BID [facility] Last Admin: 01/01/17 12:11 Dose: 0.5 gm Pantoprazole Sodium (Protonix Ec Tab) 40 mg PO DAILY [facility] Last Admin: 01/01/17 12:19 Dose: 40 mg Physical Exam - Constitutional Appears: Non-toxic, Chronically Ill - Eye Exam Eye Exam: EOMI, PERRL - ENT Exam ENT Exam: Mucous Membranes Dry - Respiratory Exam Respiratory Exam: Rales. absent: Clear to Auscultation Bilateral, Rhonchi, Wheezes - Cardiovascular Exam Cardiovascular Exam: RRR, +S1, +S2 - GI/Abdominal Exam GI & Abdominal Exam: Distended, Normal Bowel Sounds, Soft. absent: Firm, Guarding, Hernia, Organomegaly, Rigid, Tenderness - Extremities Exam Extremities exam: Positive for: normal inspection. Negative for: pedal edema - Neurological Exam Neurological exam: Alert Additional comments: AAOx1 (person) - Psychiatric Exam Psychiatric exam: Normal Affect, Normal Mood - Skin Skin Exam: Dry, Warm Results - Vital Signs Recent Vital Signs: Last Vital Signs Temp 97.4 F L 01/01/17 07:00 Pulse 100 H 01/01/17 07:00 Resp 18 01/01/17 07:00 BP 81/58 L 01/01/17 07:00 Pulse Ox 99 01/01/17 07:00 - Labs Result Diagrams: 01/01/17 08:12 12/29/16 23:14 Labs: Laboratory Results - last 24 hr 01/01/17 08:12 WBC 4.1 L RBC 2.57 L Hgb 8.0 L Hct 24.1 L MCV 93.5 MCH 31.1 H MCHC 33.3 RDW 16.1 H Plt Count 212 MPV 9.7 Neut % (Auto) 69.5 Lymph % (Auto) 19.0 L Winston % (Auto) 7.4 Eos % (Auto) 1.6 Baso % (Auto) 2.5 H Neut # 2.8 Lymph # 0.8 L Winston # 0.3 Eos # 0.1 Baso # 0.1 Assessment & Plan - Assessment and Plan (Free Text) Assessment: Patient is an 81yo female with PMHx significant for chronic anemia with suspicion for MDS (not biopsy proven), CHF (EF 35%), COPD, HTN and recent finding of a questionable RUL lung lesion on prior admissions who presented from [place] with severe anemia noted on CBC. -Chronic recurrent severe anemia with suspicion for MDS, pt refusing work up to date -Nodular liver contour and ascites concerning for cirrhosis; possibly 2/2 viral hepatitis or cardiac etiology - no know EtOH history -Liver lesions noted on CT scan -Prior documented RUL lung lesion, pt refused bronchoscopy previously Plan: -Triple phase CT of liver ordered -Recommend dx/tx paracentesis - please send fluid for cell count, C&S, total protein, albumin -Check hepatitis serologies -Patient has never had screening colonoscopy - in the absence of overt bleeding , would not recommend while inpatient and patient has refused invasive work up/ procedures previously; 4 negative FOBT in the past 6 months -Monitor H/H, encourage routine bi-monthly CBC per Dr Patton's prior recommendations -On protonix 40mg PO QAMAC -Will follow - Date & Time Date: 01/01/17 Time: 14:00 <Will George - Last Filed: 01/01/17 15:38> Meds - Medications Medications: Current Medications Acetaminophen (Tylenol 325mg Tab) 650 mg PO Q6 PRN PRN Reason: Pain, moderate (4-7) Last Admin: 12/31/16 10:28 Dose: 650 mg Albuterol/Ipratropium (Duoneb 3 Mg/0.5 Mg (3 Ml) Ud) 3 ml INH RQ6 [facility] Last Admin: 01/01/17 13:36 Dose: 3 ml Guaifenesin (Robitussin) 100 mg PO Q4H PRN PRN Reason: Cough Last Admin: 12/31/16 10:29 Dose: 100 mg Azithromycin 500 mg/ Sodium (Chloride) 250 mls @ 167 mls/hr IVPB Q24H [facility] Mupirocin (Bactroban 2% Nasal) 0.5 gm JENNIFER BID [facility] Last Admin: 01/01/17 12:11 Dose: 0.5 gm Pantoprazole Sodium (Protonix Ec Tab) 40 mg PO DAILY [facility] Last Admin: 01/01/17 12:19 Dose: 40 mg Results - Vital Signs Recent Vital Signs: Last Vital Signs Temp 97.4 F L 01/01/17 07:00 Pulse 100 H 01/01/17 07:00 Resp 18 01/01/17 07:00 BP 91/63 L 01/01/17 15:10 Pulse Ox 99 01/01/17 07:00 - Labs Result Diagrams: 01/01/17 08:12 12/29/16 23:14 Labs: Laboratory Results - last 24 hr 01/01/17 08:12 WBC 4.1 L RBC 2.57 L Hgb 8.0 L Hct 24.1 L MCV 93.5 MCH 31.1 H MCHC 33.3 RDW 16.1 H Plt Count 212 MPV 9.7 Neut % (Auto) 69.5 Lymph % (Auto) 19.0 L Winston % (Auto) 7.4 Eos % (Auto) 1.6 Baso % (Auto) 2.5 H Neut # 2.8 Lymph # 0.8 L Winston # 0.3 Eos # 0.1 Baso # 0.1 Attending/Attestation - Attestation I have personally seen and examined this patient.: Yes I have fully participated in the care of the patient.: Yes I have reviewed all pertinent clinical information: Yes Notes (Text): 01/01/17 15:21 I have seen and examined patient with GI fellow. Agree with above documentation with the following additions. In brief, this is a 81 year old female with history of CHF, MDS, chronic anemia, COPD with pulmonary lesion, HTN who is sent from senior care with progressive dyspnea on exertion in the setting of worsening anemia. At nursing facility she was complaining of worsening dyspnea along with mid sternal chest pain for the past 2 days. She also reports mild generalized abdominal pain with nausea but denies vomiting, diarrhea, fever/chills, weight loss, rectal bleeding, or change in bowel habits. She was apparently recently diagnosed with a pulmonary lesion, though has supposedly refused further workup. No prior endoscopic evaluation. Family history: reviewed with patient, denies history of GI malignancy Anemia, chronic disease CHF COPD / HTN Cirrhosis, unclear etiology CT imaging reviewed by me showing large ascites, R and L lobe hypoechoic lesions , cholelithiasis, marked enlargement of adrenal gland, degenerative joint disease - Low sodium diet as tolerated - Continue to monitor H/H, s/p PRBC transfusion - Suggest hematology evaluation, patient previously followed by Dr. Patton for treatment of MDS - Obtain viral hepatitis panel - Obtain diagnostic paracentesis given cirrhosis of unclear etiology - Obtain triple phase liver CT for further evaluation of hepatic lesions - Patient would likely benefit from endoscopic evaluation with colonoscopy, however will defer for time being given clinical condition. Will continue to monitor patient clinical course.
[2017-01-01] MEDS ORDERED: Iodixanol 320 MG/ML 100 ML BOTTLE IV ONE (15:03)
[2017-01-01] MEDS ORDERED: MethylPREDNISolone 40 mg Vial IVP STA (15:05)
[2017-01-01] MEDS ORDERED: Albuterol-Ipratrop 3 mg / 0.5 (3 ml) UD INH STA (15:06)
--- NOTE | 2017-01-01 15:50 | CP.PCM.PN ---
<[place] - Last Filed: 01/01/17 17:08> Subjective - Date & Time of Evaluation Date of Evaluation: 01/01/17 Time of Evaluation: 03:20 - Subjective Subjective: HOE RUNNER was called at 15:20 for SOB and desaturation Patient began to become short of breath. Duoneb breathing treatment was ordered stat. CXR, solumedrol, Lasix, and azithromycin was ordered stat by STATUS CONTROLLER. Patient did not improve, she was on non-rebreather at that time. Respiratory was called and patient was placed on BiPAP 18/ with FiO2 100%. Patient began to improve and calm down. CXR showed no significant interval change of right upper lobe consolidation, persistent cardiomegaly and pulm venous congestion. Patient was changed to BiPAP setting 08/27 with FiO2 40%. patient improved further and HOE RUNNER ended. Patient was transferred to telemetry and Dr. Anh Herrera was notified. VS: 98F, 112, 99/67, 18, 100% on BiPAP PE: HEENT: NCAT, mucous membranes moist Resp: decreased breath sounds and rales Cardio: Tachycardic, +S1, +S2 Abd: +BS, soft, nontender Neuro: AAO x 3 Objective - Vital Signs/Intake and Output Vital Signs (last 24 hours): Temp Pulse Resp BP Pulse Ox 97.4 F L 93 H 18 91/63 L 99 01/01/17 07:00 01/01/17 15:44 01/01/17 07:00 01/01/17 15:10 01/01/17 07:00 Intake and Output: 01/01/17 01/01/17 06:59 18:59 Intake Total 1190 Balance 1190 - Medications Medications: Current Medications Acetaminophen (Tylenol 325mg Tab) 650 mg PO Q6 PRN PRN Reason: Pain, moderate (4-7) Last Admin: 12/31/16 10:28 Dose: 650 mg Albuterol/Ipratropium (Duoneb 3 Mg/0.5 Mg (3 Ml) Ud) 3 ml INH RQ6 [facility] Last Admin: 01/01/17 13:36 Dose: 3 ml Guaifenesin (Robitussin) 100 mg PO Q4H PRN PRN Reason: Cough Last Admin: 12/31/16 10:29 Dose: 100 mg Azithromycin 500 mg/ Sodium (Chloride) 250 mls @ 167 mls/hr IVPB Q24H [facility] Mupirocin (Bactroban 2% Nasal) 0.5 gm JENNIFER BID [facility] Last Admin: 01/01/17 12:11 Dose: 0.5 gm Pantoprazole Sodium (Protonix Ec Tab) 40 mg PO DAILY [facility] Last Admin: 01/01/17 12:19 Dose: 40 mg - Labs Labs: 01/01/17 08:12 PT 19.3 SECONDS (9.7-12.2) H 12/29/16 23:14 INR 1.7 12/29/16 23:14 APTT 41 SECONDS (21-34) H 12/29/16 23:14 <Lani Montes V - Last Filed: 04/21/17 22:22> Objective - Vital Signs/Intake and Output Vital Signs (last 24 hours): Temp Pulse Resp BP Pulse Ox 98.2 F 60 20 89/59 L 93 L 01/15/17 23:20 01/15/17 23:20 01/15/17 23:20 01/15/17 23:20 01/15/17 23:20 - Labs Labs: 01/08/17 11:15 01/08/17 11:15 PT 18.7 SECONDS (9.7-12.2) H 01/06/17 10:58 INR 1.6 01/06/17 10:58 APTT 50 SECONDS (21-34) H 01/03/17 11:24 Attending/Attestation - Attestation Notes (Text): Hospitalist Note: Responded to HOE RUNNER with house resident electronic warfare technical. Patient stabilized on 01/01/17 as noted in resident's note and primary attending, Dr. Anh Herrera notified on . <Ferny Herrera - Last Filed: 04/22/17 16:14> Subjective - Date & Time of Evaluation Date of Evaluation: 04/22/17 Time of Evaluation: 08:00 Objective - Vital Signs/Intake and Output Vital Signs (last 24 hours): Temp Pulse Resp BP Pulse Ox 98.2 F 60 20 89/59 L 93 L 01/15/17 23:20 01/15/17 23:20 01/15/17 23:20 01/15/17 23:20 01/15/17 23:20 - Labs Labs: 01/08/17 11:15 01/08/17 11:15 PT 18.7 SECONDS (9.7-12.2) H 01/06/17 10:58 INR 1.6 01/06/17 10:58 APTT 50 SECONDS (21-34) H 01/03/17 11:24 - Constitutional Appears: Well - Head Exam Head Exam: ATRAUMATIC, NORMAL INSPECTION, NORMOCEPHALIC - Eye Exam Eye Exam: EOMI, Normal appearance, PERRL Pupil Exam: NORMAL ACCOMODATION, PERRL - ENT Exam ENT Exam: Mucous Membranes Moist, Normal Exam - Neck Exam Neck Exam: Full ROM, Normal Inspection. absent: Lymphadenopathy - Respiratory Exam Respiratory Exam: Decreased Breath Sounds - Cardiovascular Exam Cardiovascular Exam: REGULAR RHYTHM, +S1, +S2 - GI/Abdominal Exam GI & Abdominal Exam: Soft, Diminished Bowel Sounds - Rectal Exam Rectal Exam: Deferred Assessment and Plan (1) Anemia Status: Acute (2) CHF (congestive heart failure) Status: Acute (3) Chest pain Status: Acute (4) Compression deformity of vertebra Status: Acute (5) Contusion of wrist Status: Acute (6) Dehydration Status: Acute (7) Diastolic CHF, acute on chronic Status: Acute (8) Edema Status: Acute (9) Fatigue Status: Acute (10) Fever Status: Acute (11) Lung mass Status: Acute (12) MRSA (methicillin resistant Staphylococcus aureus) carrier Status: Acute (13) Pancytopenia Status: Acute (14) Pneumonia Status: Acute (15) Low back pain Status: Chronic (16) Severe anemia Status: Chronic
--- NOTE | 2017-01-01 15:56 | RAD ---
HISTORY: Dyspnea COMPARISON: 12/30/2016 FINDINGS: LUNGS: There is persistent right upper lobe consolidation. Lung markings are accentuated. PLEURA: No significant right pleural effusion. No pneumothorax. There is blunting of the left costophrenic angle. CARDIOVASCULAR: There is moderate cardiomegaly. Atherosclerotic aortic arch calcifications are present. . OSSEOUS STRUCTURES: No significant abnormalities. VISUALIZED UPPER ABDOMEN: Normal. OTHER FINDINGS: None. IMPRESSION: No significant interval change in right upper lobe consolidation. Persistent cardiomegaly and pulmonary venous congestion. Suspect small left pleural effusion.
--- NOTE | 2017-01-01 16:48 | CP.PCM.PN ---
Subjective - Date & Time of Evaluation Date of Evaluation: 01/01/17 Time of Evaluation: 11:00 - Subjective Subjective: cli Objective - Vital Signs/Intake and Output Vital Signs (last 24 hours): Temp Pulse Resp BP Pulse Ox 97.4 F L 93 H 18 91/63 L 99 01/01/17 07:00 01/01/17 15:44 01/01/17 07:00 01/01/17 15:10 01/01/17 07:00 Intake and Output: 01/01/17 01/01/17 06:59 18:59 Intake Total 1190 Balance 1190 - Medications Medications: Current Medications Acetaminophen (Tylenol 325mg Tab) 650 mg PO Q6 PRN PRN Reason: Pain, moderate (4-7) Last Admin: 12/31/16 10:28 Dose: 650 mg Albuterol/Ipratropium (Duoneb 3 Mg/0.5 Mg (3 Ml) Ud) 3 ml INH RQ6 [facility] Last Admin: 01/01/17 13:36 Dose: 3 ml Guaifenesin (Robitussin) 100 mg PO Q4H PRN PRN Reason: Cough Last Admin: 12/31/16 10:29 Dose: 100 mg Azithromycin 500 mg/ Sodium (Chloride) 250 mls @ 167 mls/hr IVPB Q24H [facility] Mupirocin (Bactroban 2% Nasal) 0.5 gm JENNIFER BID [facility] Last Admin: 01/01/17 12:11 Dose: 0.5 gm Pantoprazole Sodium (Protonix Ec Tab) 40 mg PO DAILY [facility] Last Admin: 01/01/17 12:19 Dose: 40 mg - Labs Labs: 01/01/17 08:12 PT 19.3 SECONDS (9.7-12.2) H 12/29/16 23:14 INR 1.7 12/29/16 23:14 APTT 41 SECONDS (21-34) H 12/29/16 23:14 - Constitutional Appears: Well - Head Exam Head Exam: ATRAUMATIC, NORMAL INSPECTION, NORMOCEPHALIC - Eye Exam Eye Exam: EOMI, Normal appearance, PERRL Pupil Exam: NORMAL ACCOMODATION, PERRL - ENT Exam ENT Exam: Mucous Membranes Moist, Normal Exam - Neck Exam Neck Exam: Full ROM, Normal Inspection. absent: Lymphadenopathy - Respiratory Exam Respiratory Exam: Decreased Breath Sounds - Cardiovascular Exam Cardiovascular Exam: REGULAR RHYTHM, +S1, +S2 - GI/Abdominal Exam GI & Abdominal Exam: Soft, Diminished Bowel Sounds - Rectal Exam Rectal Exam: Deferred Assessment and Plan - Assessment and Plan (Free Text) Plan: pulm id ocnsult iv antibioti duoneb ivf lasix prn margie as ordered hgb monitoring poor prognosis
[2017-01-01] MEDS: MethylPREDNISolone 40 mg Vial IVP SCH (23:15)
[2017-01-02] MEDS: Aluminum Hydroxide/Magnesium Hydroxide Susp (30 mL) PO STA (00:27)
[2017-01-02] MEDS: Albuterol-Ipratrop 3 mg / 0.5 (3 ml) UD INH SCH ×8 (01:21→19:31)
[2017-01-02] MEDS: MethylPREDNISolone 40 mg Vial IVP SCH ×3 (05:42→21:28)
[2017-01-02] MEDS: Fluticasone-Salmeterol 250-50mcg Diskus INH SCH ×2 (07:13→19:32)
--- NOTE | 2017-01-02 08:10 | CP.PCM.PN ---
<Hector Simons - Last Filed: 01/02/17 08:12> Subjective - Date & Time of Evaluation Date of Evaluation: 01/02/17 Time of Evaluation: 06:25 - Subjective Subjective: PGY4 GI Fellow Progress Note Patient seen and examined bedside this morning. The patient is very emotionally labile this morning, crying with questioning. Stating that she has pain "all over from bumps in the street". Cannot clarify what she means. Admits to thirst , tolerating sips of water without coughing. No events overnight. 12 system ROS performed and negative except where stated. Objective - Vital Signs/Intake and Output Vital Signs (last 24 hours): Temp Pulse Resp BP Pulse Ox 97.5 F L 119 H 20 94/61 L 98 01/02/17 07:55 01/02/17 07:55 01/02/17 07:55 01/02/17 07:55 01/02/17 07:55 Intake and Output: 01/02/17 01/02/17 06:59 18:59 Output Total 350 Balance -350 - Medications Medications: Current Medications Acetaminophen (Tylenol 325mg Tab) 650 mg PO Q6 PRN PRN Reason: Pain, moderate (4-7) Last Admin: 01/02/17 05:38 Dose: 650 mg Albuterol/Ipratropium (Duoneb 3 Mg/0.5 Mg (3 Ml) Ud) 3 ml INH RQ6 [facility] Last Admin: 01/02/17 07:14 Dose: 3 ml Albuterol/Ipratropium (Duoneb 3 Mg/0.5 Mg (3 Ml) Ud) 3 ml INH RQ6 [facility] Last Admin: 01/02/17 07:14 Dose: Not Given Guaifenesin (Robitussin) 100 mg PO Q4H PRN PRN Reason: Cough Last Admin: 12/31/16 10:29 Dose: 100 mg Azithromycin 500 mg/ Sodium (Chloride) 250 mls @ 250 mls/hr IVPB DAILY [facility] Methylprednisolone (Solu-Medrol) 40 mg IVP Q8 [facility] Last Admin: 01/02/17 05:42 Dose: 40 mg Mupirocin (Bactroban 2% Nasal) 0.5 gm JENNIFER BID [facility] Last Admin: 01/01/17 18:37 Dose: 0.5 gm Pantoprazole Sodium (Protonix Ec Tab) 40 mg PO DAILY [facility] Last Admin: 01/01/17 12:19 Dose: 40 mg Fluticasone/Salmeterol (Advair Diskus 250/50) 1 puff INH RQ12 [facility] Last Admin: 01/02/17 07:13 Dose: Not Given - Labs Labs: 01/01/17 08:12 PT 19.3 SECONDS (9.7-12.2) H 12/29/16 23:14 INR 1.7 12/29/16 23:14 APTT 41 SECONDS (21-34) H 12/29/16 23:14 - Constitutional Appears: No Acute Distress, Other (emotionally labile) - Eye Exam Eye Exam: EOMI, PERRL - Respiratory Exam Respiratory Exam: Clear to Ausculation Bilateral. absent: Rales, Rhonchi, Wheezes - Cardiovascular Exam Cardiovascular Exam: RRR, +S1, +S2 - GI/Abdominal Exam GI & Abdominal Exam: Soft, Normal Bowel Sounds. absent: Distended, Firm, Guarding, Rigid, Tenderness, Organomegaly - Extremities Exam Extremities Exam: Normal Inspection. absent: Pedal Edema - Neurological Exam Neurological Exam: Altered - Psychiatric Exam Psychiatric exam: Anxious, Depressed - Skin Skin Exam: Dry, Warm Assessment and Plan - Assessment and Plan (Free Text) Assessment: Patient is an 81yo female with PMHx significant for chronic anemia with suspicion for MDS (biopsy proven), CHF (EF 35%), COPD, HTN and recent finding of a questionable RUL lung lesion on prior admissions who presented from [place] with severe anemia noted on CBC. 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 -Nodular liver contour and ascites concerning for cirrhosis; possibly 2/2 viral hepatitis or cardiac etiology - no know EtOH history -Liver lesions noted on CT scan -Prior documented RUL lung lesion, pt refused bronchoscopy previously Plan: -On closer examination of patient's past medical records, it has been stated by Dr Patton that the patient has BM biopsy proven MDS -Triple phase CT of liver pending -Dx/tx paracentesis today - please send fluid for cell count, C&S, total protein , albumin -Check hepatitis serologies -Check ammonia level given altered mentation, unclear if 2/2 HE -2g Na diet -Patient has never had screening colonoscopy/Endoscopy - will determine timing if patient agreeable -Monitor H/H, encourage routine bi-monthly CBC per Dr Patton's prior recommendations -On protonix 40mg PO QAMAC -Will follow <Will George Y - Last Filed: 01/02/17 12:39> Objective - Vital Signs/Intake and Output Vital Signs (last 24 hours): Temp Pulse Resp BP Pulse Ox 97.5 F L 119 H 20 94/61 L 98 01/02/17 07:55 01/02/17 08:26 01/02/17 07:55 01/02/17 07:55 01/02/17 07:55 Intake and Output: 01/02/17 01/02/17 06:59 18:59 Output Total 350 Balance -350 - Medications Medications: Current Medications Acetaminophen (Tylenol 325mg Tab) 650 mg PO Q6 PRN PRN Reason: Pain, moderate (4-7) Last Admin: 01/02/17 05:38 Dose: 650 mg Albuterol/Ipratropium (Duoneb 3 Mg/0.5 Mg (3 Ml) Ud) 3 ml INH RQ6 [facility] Last Admin: 01/02/17 07:14 Dose: 3 ml Albuterol/Ipratropium (Duoneb 3 Mg/0.5 Mg (3 Ml) Ud) 3 ml INH RQ6 [facility] Last Admin: 01/02/17 07:14 Dose: Not Given Guaifenesin (Robitussin) 100 mg PO Q4H PRN PRN Reason: Cough Last Admin: 12/31/16 10:29 Dose: 100 mg Azithromycin 500 mg/ Sodium (Chloride) 250 mls @ 250 mls/hr IVPB DAILY [facility] Last Admin: 01/02/17 11:05 Dose: 250 mls/hr Vancomycin HCl 1 gm/ Sodium (Chloride) 250 mls @ 166.7 mls/hr IVPB Q24H [facility] Methylprednisolone (Solu-Medrol) 40 mg IVP Q8 [facility] Last Admin: 01/02/17 05:42 Dose: 40 mg Mupirocin (Bactroban 2% Nasal) 0.5 gm JENNIFER BID [facility] Last Admin: 01/02/17 11:04 Dose: 0.5 gm Pantoprazole Sodium (Protonix Ec Tab) 40 mg PO DAILY [facility] Last Admin: 01/02/17 11:04 Dose: 40 mg Fluticasone/Salmeterol (Advair Diskus 250/50) 1 puff INH RQ12 [facility] Last Admin: 01/02/17 07:13 Dose: Not Given - Labs Labs: 01/02/17 08:06 01/02/17 08:06 PT 19.3 SECONDS (9.7-12.2) H 12/29/16 23:14 INR 1.7 12/29/16 23:14 APTT 41 SECONDS (21-34) H 12/29/16 23:14 Attending/Attestation - Attestation I have personally seen and examined this patient.: Yes I have fully participated in the care of the patient.: Yes I have reviewed all pertinent clinical information, including history, physical exam and plan: Yes Notes (Text): 01/02/17 12:33 I have seen and examined patient with GI fellow. No acute events overnight, she complains of generalized body discomfort but denies nausea, vomiting, diarrhea, fever/chills. Tolerating PO diet without difficulty. Review of vitals from today shows tachycardia and hypotension. Chronic anemia, MDS CHF COPD Recently diagnosed pulmonary lesion, not treated Cirrhosis, unclear etiology. s/p paracentesis today with 1.8 L fluid removed. Triple phase liver CT reviewed by me showing 3 focal liver lesions without typical arterial enhancement to suggest HCC, possible metastatic lesions - Low sodium diet as tolerated - H/H stable, continue to monitor - Awaiting results of ascitic fluid analysis - Awaiting viral hepatitis panel - Patient would benefit from endoscopic evaluation of chronic anemia with associated liver lesions, however patient has refused workup in past. Will attempt to discuss risks/benefits again with patient and continue to monitor clinical course. - Palliative care note appreciated
[2017-01-02 08:29] LABS: BASO % 0.2 % (0.0-2.0); HEMATOCRIT 27.7 % (34.0-47.0); LYMPH # 0.6 K/uL (1.0-4.3); LYMPH % 8.2 % (20.0-40.0); MEAN CORPUSCULAR HEMOGLOBIN 31.6 pg (27.0-31.0); MEAN CORPUSCULAR HGB CONC 33.3 g/dL (33.0-37.0); MEAN PLATELET VOLUME 10.3 fL (7.2-11.7); MONO # 0.2 K/uL (0.0-0.8); MONO % 2.3 % (0.0-10.0); NRBC % 0.8 % (0.0-2.0); PLATELET COUNT 256 K/uL (130-400); RED CELL DISTRIBUTION WIDTH 16.6 % (11.5-14.5)
[2017-01-02 08:32] LABS: WHITE BLOOD COUNT 7.3 K/uL (4.8-10.8)
[2017-01-02 08:46] LABS: CHLORIDE 104 mmol/L (98-107)
[2017-01-02 08:47] LABS: POTASSIUM 4.6 mmol/L (3.6-5.2); SODIUM 137 mmol/L (132-148)
[2017-01-02 08:49] LABS: ALB/GLOB RATIO 0.6 (1.0-2.1); AST/SGOT 16 U/L (14-36); BILIRUBIN,TOTAL 3.2 mg/dL (0.2-1.3); CARBON DIOXIDE 25 mmol/L (22-30); GFR AFRICAN-AMERICAN > 60; TOTAL PROTEIN 6.5 g/dL (6.3-8.3)
[2017-01-02 08:50] LABS: ALKALINE PHOSPHATASE 64 U/L (38-126); ALT/SGPT 18 U/L (9-52); BLOOD UREA NITROGEN 34 mg/dL (7-17); CALCIUM 7.3 mg/dl (8.6-10.4); GLUCOSE,RANDOM 161 mg/dL (65-105)
[2017-01-02] MEDS ORDERED: Azithromycin 500 MG in Sodium Chloride 0.9% 250 ML IVPB SCH (10:00)
[2017-01-02 10:08] LABS: NEUTROPHIL 62 % (50-75); NUCLEATED RED BLOOD CELL 2 % (0-0); TOTAL CELLS COUNTED 100
[2017-01-02 10:12] LABS: GIANT PLATELETS PRESENT
--- NOTE | 2017-01-02 10:31 | PCM.SURG1 ---
Surgeon's Initial Post Op Note - Surgeon's Notes Surgeon: Dong Garg MD Laborer High Density Press: NONE Type of Anesthesia: Local Pre-Operative Diagnosis: Ascites, abdominal pain Operative Findings: US showed a moderate amount of fluid within in the abdomen. Post-Operative Diagnosis: Ascites, abdominal pain Operation Performed: US guided paracentesis. Specimen/Specimens Removed: 1800 cc of clear yellow fluid Estimated Blood Loss: EBL {In ML}: 0 Blood Products Given: N/A Drains Used: No Drains Post-Op Condition: Fair Date of Surgery/Procedure: 01/02/17 Time of Surgery/Procedure: 10:15
--- NOTE | 2017-01-02 10:38 | US ---
Date of Procedure: 01/02/2017 PROCEDURE: Ultrasound-guided paracentesis, CPT 64491 Medications: 6cc 1% Lidocaine HISTORY: Ascites, abdominal pain, TECHNIQUE: Following informed consent , the patient was placed supine on the stretcher and the site was marked. A limited abdominal ultrasound was performed that showed a large amount of intra-abdominal fluid. Procedural time out was called and the Pt's abdomen was marked and prepped and draped in the usual sterile fashion. Ultrasound-guided large volume paracentesis performed. A total of 1800 cc of straw colored fluid was removed without complication. IMPRESSION: Ultrasound-guided large volume paracentesis.
--- NOTE | 2017-01-02 10:52 | CP.PCM.CON ---
History of Present Illness - History of Present Illness History of Present Illness: Pulmonary consult for RUL Lung Mass and possible Pneumonia. Pt is an 81yo F that presented with severe anemia and was [place] [facility] the hospital [facility]. Pt was found discovered ot have opacification of right upper lung 1mo ago that has progressively worsened. The pt refused bronchoscopy at that time for biopsy and evaluation. The pt was seen and examined at bedside today, no acute distress, no acute events overnight. The pt was agitated due to be NPO overnight for IR paracentesis to be performed later today for fluid drainage. The patient was internally preoccupied with the lack of oral fluid intake and was very uncooperative, minimal ROS was obtainable. Pt currently denies the nausea, vomiting, fever, chills, chest pain, headache, palpitations, LE edema, cough, wheezing, shortness of breath. PMH: Anemia, Arthritis, A Fib, HTN, CHF, COPD PSHx: Right femur ORIF w/ stephanie placement Allergies: ASA, ciprofloxacin, PCN, Cefepime FHx: Denies significant family history Social: Denies tobacco, EtOH or illicit drug use presently or previously Review of Systems - Constitutional Constitutional: absent: Chills, Fever - Cardiovascular Cardiovascular: absent: Chest Pain, Chest Pain at Rest, Dyspnea, Edema, Irregular Heart Rhythm, Leg Edema - Respiratory Respiratory: absent: Wheezing, Pain on Inspiration, Chest Congestion, Pain with Coughing Past Patient History - Infectious Disease Hx of Infectious Diseases: None - Past Medical History & Family History Past Medical History?: Yes - Past Social History Smoking Status: Never Smoked - CARDIAC Hx Congestive Heart Failure: Yes - PULMONARY Hx Chronic Obstructive Pulmonary Disease (COPD): Yes - NEUROLOGICAL Hx Neurological Disorder: No - HEENT Hx HEENT Problems: Yes Hx Blind: Yes (legally) - RENAL Hx Chronic Kidney Disease: No - ENDOCRINE/METABOLIC Hx Endocrine Disorders: No - HEMATOLOGICAL/ONCOLOGICAL Hx Anemia: Yes - INTEGUMENTARY Hx Dermatological Problems: No - MUSCULOSKELETAL/RHEUMATOLOGICAL Hx Arthritis: Yes - GASTROINTESTINAL Hx Diverticulitis: Yes - GENITOURINARY/GYNECOLOGICAL Hx Genitourinary Disorders: No - PSYCHIATRIC Hx Substance Use: No - SURGICAL HISTORY Hx Surgeries: Yes Hx Orthopedic Surgery: Yes (hip surgery as per patient) - ANESTHESIA Hx Anesthesia: Yes Hx Anesthesia Reactions: No Hx Malignant Hyperthermia: No Meds Allergies/Adverse Reactions: Allergies Allergy/AdvReac Type Severity Reaction Status Date / Time aspirin Allergy Verified 11/21/16 02:08 ciprofloxacin [From Cipro] Allergy Verified 11/21/16 02:08 ciprofloxacin HCl Allergy Verified 11/21/16 02:08 [From Cipro] Penicillins Allergy Verified 11/21/16 02:08 cefepime AdvReac Unknown ARRHYTHMIA Verified 11/21/16 02:08 - Medications Medications: Current Medications Acetaminophen (Tylenol 325mg Tab) 650 mg PO Q6 PRN PRN Reason: Pain, moderate (4-7) Last Admin: 01/02/17 05:38 Dose: 650 mg Albuterol/Ipratropium (Duoneb 3 Mg/0.5 Mg (3 Ml) Ud) 3 ml INH RQ6 [facility] Last Admin: 01/02/17 07:14 Dose: 3 ml Albuterol/Ipratropium (Duoneb 3 Mg/0.5 Mg (3 Ml) Ud) 3 ml INH RQ6 [facility] Last Admin: 01/02/17 07:14 Dose: Not Given Guaifenesin (Robitussin) 100 mg PO Q4H PRN PRN Reason: Cough Last Admin: 12/31/16 10:29 Dose: 100 mg Azithromycin 500 mg/ Sodium (Chloride) 250 mls @ 250 mls/hr IVPB DAILY [facility] Methylprednisolone (Solu-Medrol) 40 mg IVP Q8 [facility] Last Admin: 01/02/17 05:42 Dose: 40 mg Mupirocin (Bactroban 2% Nasal) 0.5 gm JENNIFER BID [facility] Last Admin: 01/01/17 18:37 Dose: 0.5 gm Pantoprazole Sodium (Protonix Ec Tab) 40 mg PO DAILY [facility] Last Admin: 01/01/17 12:19 Dose: 40 mg Fluticasone/Salmeterol (Advair Diskus 250/50) 1 puff INH RQ12 [facility] Last Admin: 01/02/17 07:13 Dose: Not Given Physical Exam - Constitutional Appears: No Acute Distress, Unkempt, Confused, Cachectic - Head Exam Head Exam: ATRAUMATIC, NORMAL INSPECTION - Eye Exam Eye Exam: EOMI, Normal appearance - ENT Exam ENT Exam: Normal Exam - Neck Exam Neck exam: Positive for: Normal Inspection - Respiratory Exam Respiratory Exam: NORMAL BREATHING PATTERN. absent: Rales, Rhonchi, Wheezes - Cardiovascular Exam Cardiovascular Exam: +S1, +S2 - Extremities Exam Extremities exam: Negative for: joint swelling, pedal edema - Neurological Exam Neurological exam: Alert, Oriented x3 - Psychiatric Exam Psychiatric exam: Agitated, Anxious - Skin Skin Exam: Dry, Intact, Mottled Results - Vital Signs Recent Vital Signs: Last Vital Signs Temp 97.5 F L 01/02/17 07:55 Pulse 119 H 01/02/17 08:26 Resp 20 01/02/17 07:55 BP 94/61 L 01/02/17 07:55 Pulse Ox 98 01/02/17 07:55 - Labs Result Diagrams: 01/02/17 08:06 01/02/17 08:06 Labs: Laboratory Results - last 24 hr 01/02/17 08:06 WBC 7.3 D RBC 2.92 L Hgb 9.2 L Hct 27.7 L MCV 95.0 MCH 31.6 H MCHC 33.3 RDW 16.6 H Plt Count 256 MPV 10.3 Neut % (Auto) 89.3 H Lymph % (Auto) 8.2 L [place] % (Auto) 2.3 Eos % (Auto) 0.0 Baso % (Auto) 0.2 Neut # 6.5 Lymph # 0.6 L [place] # 0.2 Eos # 0.0 Baso # 0.0 Neutrophils % (Manual) 62 Band Neutrophils % 28 H* Lymphocytes % (Manual) 8 L Monocytes % (Manual) 2 Nucleated RBC % 2 H Platelet Estimate Normal Giant Platelets Present Hypochromasia (manual) Slight Poikilocytosis (manual Slight Basophilic Stippling Slight Anisocytosis (manual) Moderate Microcytosis (manual) Slight Macrocytosis (manual) Slight Target Cells Slight Tear Drop Cells Slight Ovalocytes Slight Hilliard Cells Slight Sodium 137 Potassium 4.6 Chloride 104 Carbon Dioxide 25 Anion Gap 13 BUN 34 H Creatinine 0.8 Est GFR ( Amer) > 60 Est GFR (Non-Af Amer) > 60 Random Glucose 161 H Calcium 7.3 L Total Bilirubin 3.2 H AST 16 ALT 18 Alkaline Phosphatase 64 Ammonia 14 Total Protein 6.5 Albumin 2.6 L Globulin 3.9 Albumin/Globulin Ratio 0.6 L Hepatitis A IgM Ab Negative Hep Bs Antigen Negative Hep B Core IgM Ab Negative Hepatitis C Antibody Negative Assessment & Plan - Assessment and Plan (Free Text) Assessment: 1) Pneumonia Continue Abx IV Continue use of bipap 2) RU Lung Mass Patient refused bronchoscopy previously Patient prognosis poor consider DNR/DNI continue recommendations as per medicine team - Date & Time Date: 01/02/17 Time: 09:00
--- NOTE | 2017-01-02 10:53 | CP.PCM.PN ---
Addendum entered and electronically signed by Jadon Anderson DO 01/02/17 14:59: Consulted [facility]- Dr. Hamlin Original Note: <Jadon Anderson - Last Filed: 01/02/17 14:58> Subjective - Date & Time of Evaluation Date of Evaluation: 01/02/17 Time of Evaluation: 09:00 - Subjective Subjective: Medicine Note- Dr. Herrera's service Patient was seen and examined at bedside. Patient reports that she feels pain in her entire body. Patient appears comfortable, in no acute distress. No events overnight per nursing. Patient is NPO for IR paracentesis. Objective - Vital Signs/Intake and Output Vital Signs (last 24 hours): Temp Pulse Resp BP Pulse Ox 97.5 F L 119 H 20 94/61 L 98 01/02/17 07:55 01/02/17 08:26 01/02/17 07:55 01/02/17 07:55 01/02/17 07:55 Intake and Output: 01/02/17 01/02/17 06:59 18:59 Output Total 350 Balance -350 - Medications Medications: Current Medications Acetaminophen (Tylenol 325mg Tab) 650 mg PO Q6 PRN PRN Reason: Pain, moderate (4-7) Last Admin: 01/02/17 05:38 Dose: 650 mg Albuterol/Ipratropium (Duoneb 3 Mg/0.5 Mg (3 Ml) Ud) 3 ml INH RQ6 [facility] Last Admin: 01/02/17 07:14 Dose: 3 ml Albuterol/Ipratropium (Duoneb 3 Mg/0.5 Mg (3 Ml) Ud) 3 ml INH RQ6 [facility] Last Admin: 01/02/17 07:14 Dose: Not Given Guaifenesin (Robitussin) 100 mg PO Q4H PRN PRN Reason: Cough Last Admin: 12/31/16 10:29 Dose: 100 mg Azithromycin 500 mg/ Sodium (Chloride) 250 mls @ 250 mls/hr IVPB DAILY [facility] Methylprednisolone (Solu-Medrol) 40 mg IVP Q8 [facility] Last Admin: 01/02/17 05:42 Dose: 40 mg Mupirocin (Bactroban 2% Nasal) 0.5 gm JENNIFER BID [facility] Last Admin: 01/01/17 18:37 Dose: 0.5 gm Pantoprazole Sodium (Protonix Ec Tab) 40 mg PO DAILY [facility] Last Admin: 01/01/17 12:19 Dose: 40 mg Fluticasone/Salmeterol (Advair Diskus 250/50) 1 puff INH RQ12 [facility] Last Admin: 01/02/17 07:13 Dose: Not Given - Labs Labs: 01/02/17 08:06 01/02/17 08:06 PT 19.3 SECONDS (9.7-12.2) H 12/29/16 23:14 INR 1.7 12/29/16 23:14 APTT 41 SECONDS (21-34) H 12/29/16 23:14 - Constitutional Appears: Non-toxic, No Acute Distress, Confused, Cachectic - Head Exam Head Exam: ATRAUMATIC, NORMAL INSPECTION, NORMOCEPHALIC - Eye Exam Pupil Exam: NORMAL ACCOMODATION, PERRL - ENT Exam ENT Exam: Mucous Membranes Moist - Respiratory Exam Respiratory Exam: Clear to Ausculation Bilateral, NORMAL BREATHING PATTERN. 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 Iniguez Continue Azithromycin 500mg IVPB Daily CXR- 12/30/16- Worsening dense opacification seen within the right upper to mid lung zone as well as the left lung base with associated small to moderate left pleural effusion. Additional milder patchy consolidative changes at the right luing base and left hilar region. Diffuse increased interstitial markings with scattered nodules/ nodularity throughout both lungs CXR- 01/01/17- No significant interval change in RUL consolidation. Persistent cardiomegaly and pulmonary venous congestion. Suspect small left pleural effusion Duoneb Q6h PRN Solumedrol Q6h PRN Guaifenesin 100mg PO Q4h PRN ADvair 250/50mcg 1 puff INH Q12h [facility] Liver abnormalities Consult GI- Dr. George Abdominal CT- large abdominal and pelvic ascites. Anasarca. Moderate bilateral pleural effusions, consolidations and fibrosis. Nodular hepatic contour, may be cirrhosis. Indetermine 1.0cm left hepatic lobe and 1.1cm right inferior hepatic hypodense lesion. 7mm hypodensity within the anterior left hepatic lobe. Liver CT done- pending read Scheduled for IR paracentesis- f/u fluid studies Hx of CHF Previous ECHO 09/25/16: per Dr. Drake on last admission, Global Hypokenesis and LV dysfunction; EF 35%, Stage II diastolic dysfunction; No significant valve lesions Prophylactic Measure Protonix 40mg PO Daily [facility] <Ferny Herrera S - Last Filed: 01/02/17 19:00> Objective - Vital Signs/Intake and Output Vital Signs (last 24 hours): Temp Pulse Resp BP Pulse Ox 98.6 F 105 H 19 92/61 L 100 01/02/17 15:28 01/02/17 16:51 01/02/17 15:28 01/02/17 15:28 01/02/17 15:28 Intake and Output: 01/02/17 01/03/17 18:59 06:59 Intake Total 510 Output Total 125 Balance 385 - Medications Medications: Current Medications Acetaminophen (Tylenol 325mg Tab) 650 mg PO Q6 PRN PRN Reason: Pain, moderate (4-7) Last Admin: 01/02/17 05:38 Dose: 650 mg Albuterol/Ipratropium (Duoneb 3 Mg/0.5 Mg (3 Ml) Ud) 3 ml INH RQ6 [facility] Last Admin: 01/02/17 13:06 Dose: 3 ml Albuterol/Ipratropium (Duoneb 3 Mg/0.5 Mg (3 Ml) Ud) 3 ml INH RQ6 [facility] Last Admin: 01/02/17 13:06 Dose: Not Given Guaifenesin (Robitussin) 100 mg PO Q4H PRN PRN Reason: Cough Last Admin: 12/31/16 10:29 Dose: 100 mg Azithromycin 500 mg/ Sodium (Chloride) 250 mls @ 250 mls/hr IVPB DAILY [facility] Last Admin: 01/02/17 11:05 Dose: 250 mls/hr Vancomycin/Sodium Chloride (Vancocin) 200 mls @ 133.333 mls/hr IVPB Q24H [facility] Last Admin: 01/02/17 13:57 Dose: 133.333 mls/hr Methylprednisolone (Solu-Medrol) 40 mg IVP Q8 [facility] Last Admin: 01/02/17 13:24 Dose: 40 mg Mupirocin (Bactroban 2% Nasal) 0.5 gm JENNIFER BID [facility] Last Admin: 01/02/17 17:52 Dose: 0.5 gm Pantoprazole Sodium (Protonix Ec Tab) 40 mg PO DAILY [facility] Last Admin: 01/02/17 11:04 Dose: 40 mg Fluticasone/Salmeterol (Advair Diskus 250/50) 1 puff INH RQ12 [facility] Last Admin: 01/02/17 07:13 Dose: Not Given - Labs Labs: 01/02/17 08:06 01/02/17 08:06 PT 19.3 SECONDS (9.7-12.2) H 12/29/16 23:14 INR 1.7 12/29/16 23:14 APTT 41 SECONDS (21-34) H 12/29/16 23:14 Attending/Attestation - Attestation I have personally seen and examined this patient.: Yes I have fully participated in the care of the patient.: Yes I have reviewed all pertinent clinical information, including history, physical exam and plan: Yes Notes (Text): 01/02/17 19:00 case seen and discussed with staff and resident mx as discussed..
[2017-01-02] MEDS: Mupirocin 2% Ointment (NASAL) NAS SCH ×2 (11:04→17:52)
[2017-01-02] MEDS: Pantoprazole 40 mg EC Tab PO SCH (11:04)
[2017-01-02] MEDS: Azithromycin 500 MG in Sodium Chloride 0.9% 250 ML IVPB SCH (11:05)
--- NOTE | 2017-01-02 11:06 | CP.PCM.CON ---
History of Present Illness - History of Present Illness History of Present Illness: Palliative consult requested by Pierre Herrera DO Reason; Goals of care discussion Patient is a 81 yo lady known to me from previous admission, admitted from [place] with abnormal labs; Hb 5.0. On admission The CT abd/pelvis was significant for B /L pleural effusion, fibrosis, possible liver cirrhosis, and compression Fx to T12 and L12. Liver CT is pending. Patient is S/P paracentesis for ascites, on 08/2017. Today her Hb is 9.2. PMH: anema, A fib, CHF, COPD, HTN, pneumonia Soc. Hx: lives alone, son Rayshawn is refusing to talk to her, sister Fausto ) visits [facility]. Hx: Unknown Review of Systems - Constitutional Constitutional: Weakness - EENT Eyes: absent: As Per HPI, Blind Spots, Blurred Vision, Change in Vision, Decreased Night Vision, Diplopia, Discharge, Dry Eye, Exophthalmos, Floaters, Irritation, Itchy Eyes, Loss of Peripheral Vision, Pain, Photophobia, Requires Corrective Lenses, Sees Flashes, Spots in Vision, Tunnel Vision, Other Visual Disturbances, Loss of Vision, Other Ears: absent: As Per HPI, Decreased Hearing, Ear Discharge, Ear Pain, Tinnitus, Abnormal Hearing, Disequilibrium, Dizziness, Other Nose/Mouth/Throat: absent: As Per HPI, Epistaxis, Nasal Congestion, Nasal Discharge, Nasal Obstruction, Nasal Trauma, Nose Pain, Post Nasal Drip, Sinus Pain, Sinus Pressure, Bleeding Gums, Change in Voice, Dental Pain, Dry Mouth, Dysphagia, Halitosis, Hoarsness, Lip Swelling, Mouth Lesions, Mouth Pain, Odynophagia, Sore Throat, Throat Swelling, Tongue Swelling, Facial Pain, Neck Pain, Neck Mass, Other - Breasts Breasts: absent: As Per HPI, Change in Shape, Mass, Pain, Nipple Discharge, Nipple Inversion, Skin Changes, Swelling, Other - Cardiovascular Cardiovascular: absent: As Per HPI, Acrocyanosis, Chest Pain, Chest Pain at Rest , Chest Pain with Activity, Claudication, Diaphoresis, Dyspnea, Dyspnea on Exertion, Edema, Irregular Heart Rhythm, Pain Radiating to Arm/Neck/Jaw, Leg Edema, Leg Ulcers, Lightheadedness, Orthopnea, Palpitations, Paroxysmal Nocturnal Dyspnea, Pedal Edema, Radiating Pain, Rapid Heart Rate, Slow Heart Rate, Syncope, Other - Respiratory Respiratory: Dyspnea - Gastrointestinal Gastrointestinal: Nausea - Genitourinary Genitourinary: Urinary Incontinence - Reproductive: Female Reproductive:Female: Post Menopausal - Menstruation Menstruation: Post Menopausal - Musculoskeletal Musculoskeletal: Back Pain, Muscle Weakness, Myalgias - Integumentary Integumentary: Dry Skin - Neurological Neurological: Weakness - Psychiatric Psychiatric: Anhedonia - Endocrine Endocrine: absent: As Per HPI, Change in Body Appearance, Change in Libido, Cold Intolorance, Deepening of Voice, Excessive Sweating, Fatigue, Flushing, Heat Intolorance, Increase in Ring/Shoe/Hat Size, Palpitations, Polydipsia, Polyphagia, Polyuria, Other - Hematologic/Lymphatic Hematologic: As Per HPI Past Patient History - Infectious Disease Hx of Infectious Diseases: None - Past Medical History & Family History Past Medical History?: Yes - Past Social History Smoking Status: Never Smoked - CARDIAC Hx Congestive Heart Failure: Yes - PULMONARY Hx Chronic Obstructive Pulmonary Disease (COPD): Yes - NEUROLOGICAL Hx Neurological Disorder: No - HEENT Hx HEENT Problems: Yes Hx Blind: Yes (legally) - RENAL Hx Chronic Kidney Disease: No - ENDOCRINE/METABOLIC Hx Endocrine Disorders: No - HEMATOLOGICAL/ONCOLOGICAL Hx Anemia: Yes - INTEGUMENTARY Hx Dermatological Problems: No - MUSCULOSKELETAL/RHEUMATOLOGICAL Hx Arthritis: Yes - GASTROINTESTINAL Hx Diverticulitis: Yes - GENITOURINARY/GYNECOLOGICAL Hx Genitourinary Disorders: No - PSYCHIATRIC Hx Substance Use: No - SURGICAL HISTORY Hx Surgeries: Yes Hx Orthopedic Surgery: Yes (hip surgery as per patient) - ANESTHESIA Hx Anesthesia: Yes Hx Anesthesia Reactions: No Hx Malignant Hyperthermia: No Meds Allergies/Adverse Reactions: Allergies Allergy/AdvReac Type Severity Reaction Status Date / Time aspirin Allergy Verified 11/21/16 02:08 ciprofloxacin [From Cipro] Allergy Verified 11/21/16 02:08 ciprofloxacin HCl Allergy Verified 11/21/16 02:08 [From Cipro] Penicillins Allergy Verified 11/21/16 02:08 cefepime AdvReac Unknown ARRHYTHMIA Verified 11/21/16 02:08 - Medications Medications: Current Medications Acetaminophen (Tylenol 325mg Tab) 650 mg PO Q6 PRN PRN Reason: Pain, moderate (4-7) Last Admin: 01/02/17 05:38 Dose: 650 mg Albuterol/Ipratropium (Duoneb 3 Mg/0.5 Mg (3 Ml) Ud) 3 ml INH RQ6 [facility] Last Admin: 01/02/17 07:14 Dose: 3 ml Albuterol/Ipratropium (Duoneb 3 Mg/0.5 Mg (3 Ml) Ud) 3 ml INH RQ6 [facility] Last Admin: 01/02/17 07:14 Dose: Not Given Guaifenesin (Robitussin) 100 mg PO Q4H PRN PRN Reason: Cough Last Admin: 12/31/16 10:29 Dose: 100 mg Azithromycin 500 mg/ Sodium (Chloride) 250 mls @ 250 mls/hr IVPB DAILY [facility] Methylprednisolone (Solu-Medrol) 40 mg IVP Q8 [facility] Last Admin: 01/02/17 05:42 Dose: 40 mg Mupirocin (Bactroban 2% Nasal) 0.5 gm JENNIFER BID [facility] Last Admin: 01/01/17 18:37 Dose: 0.5 gm Pantoprazole Sodium (Protonix Ec Tab) 40 mg PO DAILY [facility] Last Admin: 01/01/17 12:19 Dose: 40 mg Fluticasone/Salmeterol (Advair Diskus 250/50) 1 puff INH RQ12 [facility] Last Admin: 01/02/17 07:13 Dose: Not Given Physical Exam - Constitutional Appears: Chronically Ill - Head Exam Head Exam: ATRAUMATIC - Eye Exam Eye Exam: Normal appearance Pupil Exam: NORMAL ACCOMODATION - ENT Exam ENT Exam: Mucous Membranes Dry - Neck Exam Neck exam: Positive for: Normal Inspection - Respiratory Exam Respiratory Exam: Decreased Breath Sounds - Cardiovascular Exam Cardiovascular Exam: Tachycardia - GI/Abdominal Exam GI & Abdominal Exam: Guarding - Rectal Exam Rectal Exam: Deferred - Extremities Exam Extremities exam: Positive for: normal inspection - Back Exam Back exam: NORMAL INSPECTION, vertebral tenderness - Neurological Exam Neurological exam: Alert, Oriented x3 - Psychiatric Exam Psychiatric exam: Anxious - Skin Skin Exam: Pallor Results - Vital Signs Recent Vital Signs: Last Vital Signs Temp 97.5 F L 01/02/17 07:55 Pulse 119 H 01/02/17 08:26 Resp 20 01/02/17 07:55 BP 94/61 L 01/02/17 07:55 Pulse Ox 98 01/02/17 07:55 - Labs Result Diagrams: 01/02/17 08:06 01/02/17 08:06 Labs: Laboratory Results - last 24 hr 01/02/17 08:06 WBC 7.3 D RBC 2.92 L Hgb 9.2 L Hct 27.7 L MCV 95.0 MCH 31.6 H MCHC 33.3 RDW 16.6 H Plt Count 256 MPV 10.3 Neut % (Auto) 89.3 H Lymph % (Auto) 8.2 L [place] % (Auto) 2.3 Eos % (Auto) 0.0 Baso % (Auto) 0.2 Neut # 6.5 Lymph # 0.6 L [place] # 0.2 Eos # 0.0 Baso # 0.0 Neutrophils % (Manual) 62 Band Neutrophils % 28 H* Lymphocytes % (Manual) 8 L Monocytes % (Manual) 2 Nucleated RBC % 2 H Platelet Estimate Normal Giant Platelets Present Hypochromasia (manual) Slight Poikilocytosis (manual Slight Basophilic Stippling Slight Anisocytosis (manual) Moderate Microcytosis (manual) Slight Macrocytosis (manual) Slight Target Cells Slight Tear Drop Cells Slight Ovalocytes Slight [place] Cells Slight Sodium 137 Potassium 4.6 Chloride 104 Carbon Dioxide 25 Anion Gap 13 BUN 34 H Creatinine 0.8 Est GFR ( Amer) > 60 Est GFR (Non-Af Amer) > 60 Random Glucose 161 H Calcium 7.3 L Total Bilirubin 3.2 H AST 16 ALT 18 Alkaline Phosphatase 64 Ammonia 14 Total Protein 6.5 Albumin 2.6 L Globulin 3.9 Albumin/Globulin Ratio 0.6 L Hepatitis A IgM Ab Negative Hep Bs Antigen Negative Hep B Core IgM Ab Negative Hepatitis C Antibody Negative Assessment & Plan - Assessment and Plan (Free Text) Assessment: Palliative consult Code status Full Code. No Advance directive on chart. PPS 20% I reviewed medical records, all diagnostic studies, examined and interviewed patient in the bed, and made phone calls to her son and sister. Goals of care discussed with patient. Patient is alert, oriented X 3, looking very sick. Affect flat. Patient looks depressed and is moaning occasionally. Skin is pale kaur. Poor skin turgor. Petechiae to upper arms. Cachexia. S/P paracentesis. patient denied any pain at present. Patient recognized me from the last time we met and her first question was if I got in touch with her son. I did call her son Rayshawn and sister Fausto, and left voicemail for both. As per patient her sister was here yesterday visiting. I discussed goals of care with patient. Patient admits feeling very weak, but little better than yesterday. Patient realizes she could not be returning home alone due to her progressed weakness. Patient would like her son to visit. I promised her would try again to get in touch with son . We further discussed the Code status. Patient was clear that she would want to be allowed natural if all prudent measures failed, but refused to sign the POLST saying " I am not signing no papers". The Code status was discussed byme with patient's sister over the phone when the sister stated that patient may decide whatever she wanted. Impression * Generalized weakness * Failure to thrive * Cachecxia * Feeling of hopelessness * Felling of loneliness; abandoned by her only son * Anticipatory grieving * Patient is clear would prefer natural but has a fear of signing those wishes on the paper * Lock of family support * Very poor quality of life due to complex medical hx Suggestion * Use all appropriate measures to support life * SS to assist patient in getting in touch with her son * DNR/DNI would be appropriate I am afraid this patient will Code and assistance of MV will be necessary. That will not increase patient's quality of life, but will only prolong her suffering . I will continue my effort to bring patient's son in her, but I mayb need some help from pastoral care and SS. Thank you very much for consulting Palliative care
--- NOTE | 2017-01-02 12:10 | CT ---
Liver protocol triple phase Indication: Liver lesions, cirrhosis Technique: Contiguous axial images of the abdomen and pelvis utilizing triple phase liver protocol. Coronal and Sagittal reformats generated and reviewed. 100 mL Visipaque administered. Oral contrast was not administered. This CT exam was performed using 1 or more of the following dose reduction techniques: Automated exposure control, adjustment of the MAA and/or kV according to patient size, and/or use of iterative reconstruction technique. Radiation dose: Total exam DLP = 727.15 mGy-cm. Comparison: CT abdomen and pelvis without oral or IV contrast performed 12/31/16 Findings: The lung bases reveal moderate bilateral pleural effusions, consolidations, and fibrotic changes. Partially imaged cardiomegaly. Dense coronary artery calcifications. Dense atherosclerotic calcifications of the thoracic and abdominal aorta. Large abdominal and pelvic ascites. Anasarca. Nodular hepatic contour. Periportal edema. Indeterminate 1.1 cm left hepatic lobe and 1.1 cm right inferior hepatic lobe hypodense lesions. 7 mm hypodensity within the anterior left hepatic lobe and 7 mm hypodensity within the hepatic dome. Cholelithiasis. Marked enlargement and nodules, left adrenal gland. The spleen, kidneys, pancreas, and right adrenal gland appear unremarkable. The stomach is nondistended. Moderate hiatal hernia. Fluid within the distal esophagus compatible gastroesophageal reflux. The bowel loops appear within normal limits of caliber without evidence of intestinal obstruction. There is no definite free air. Uterus is present. Under distended urinary bladder limits evaluation. Metallic stephanie and screw fixation of the right femur. Diffuse osseous demineralization. Degenerative changes of the spine and left hip. T12 and L2 compression fractures. Impression: Moderate bilateral pleural effusions, consolidations, and fibrosis. Partially imaged cardiomegaly. Dense atherosclerotic calcifications. Large abdominal and pelvic ascites. Anasarca. Nodular hepatic contour may be seen in the setting of cirrhosis. Periportal edema. Multiple indeterminate ill-defined hepatic hypodensities as described above. No evidence of associated calcification or clear evidence of post-contrast enhancement. Possible metastatic neoplasm. Correlate clinically and follow-up as indicated. Additional findings as above.
[2017-01-02] MEDS ORDERED: Vancomycin 1 gm/NS 200 ml 200 ML IVPB SCH (14:00)
--- NOTE | 2017-01-02 17:01 | CP.PCM.CON ---
History of Present Illness - History of Present Illness History of Present Illness: 81yo Female presented with severe anemia Pt was found discovered to have opacification of right upper lung 1mo ago that has progressively worsened. The pt refused bronchoscopy at that time for biopsy and evaluation. TB has been ruled out Thoracentesis done today is pending IV antibiotics ordered empirically PMH: Anemia, Arthritis, A Fib, HTN, CHF, COPD PSHx: Right femur ORIF w/ stephanie placement Allergies: ASA, ciprofloxacin, PCN, Cefepime FHx: Denies significant family history Social: Denies tobacco, EtOH or illicit drug Review of Systems - Constitutional Constitutional: Anorexia, Daytime Sleepiness, Fatigue, Malaise, Weight Loss, Weakness - EENT Eyes: absent: As Per HPI, Blind Spots, Blurred Vision, Change in Vision, Decreased Night Vision, Diplopia, Discharge, Dry Eye, Exophthalmos, Floaters, Irritation, Itchy Eyes, Loss of Peripheral Vision, Pain, Photophobia, Requires Corrective Lenses, Sees Flashes, Spots in Vision, Tunnel Vision, Other Visual Disturbances, Loss of Vision, Other Ears: absent: As Per HPI, Decreased Hearing, Ear Discharge, Ear Pain, Tinnitus, Abnormal Hearing, Disequilibrium, Dizziness, Other Nose/Mouth/Throat: absent: As Per HPI, Epistaxis, Nasal Congestion, Nasal Discharge, Nasal Obstruction, Nasal Trauma, Nose Pain, Post Nasal Drip, Sinus Pain, Sinus Pressure, Bleeding Gums, Change in Voice, Dental Pain, Dry Mouth, Dysphagia, Halitosis, Hoarsness, Lip Swelling, Mouth Lesions, Mouth Pain, Odynophagia, Sore Throat, Throat Swelling, Tongue Swelling, Facial Pain, Neck Pain, Neck Mass, Other - Breasts Breasts: absent: As Per HPI, Change in Shape, Mass, Pain, Nipple Discharge, Nipple Inversion, Skin Changes, Swelling, Other - Cardiovascular Cardiovascular: As Per HPI - Respiratory Respiratory: As Per HPI, Cough, Dyspnea - Gastrointestinal Gastrointestinal: As Per HPI - Genitourinary Genitourinary: absent: As Per HPI, Change in Urinary Stream, Difficulty Urinating, Dysuria, Flank Pain, Hematuria, Pyuria, Nocturia, Urinary Incontinence, Urinary Frequency, Urinary Hesitance, Urinary Urgency, Voiding Freq/Small Amts, Freq UTI, Hx Renal/Bladder Calculi, Hx /Renal Surgery, Bladder Distension, Other - Reproductive: Female Reproductive:Female: absent: As Per HPI, Amenorrhea, Amenorrhea/ Control, Currently Menstual, Cycle <21 Days, Cycle >35 Days, Cycle Variable, Menses 1-7 Days, Menses >/= 8 Days, Menses Variable, Cycle > 4 Weeks Between, No Menses for 6 Months, Heavy Menses, Light Menses, Normal Menses, Spotting Between Cycles , S/P Hysterectomy, Menopausal, Post Menopausal, Premenarche, Abnormal Vaginal Bleeding, Dysmenorrhea, Dyspareunia, Genital Lesions, Genital Pruritis, Pelvic Pain, Prolapse Symptoms, Sexual Dysfunction, Vaginal Discharge, Vaginal Dryness , Vaginal Odor, Vaginal Pruritis, Other - Menstruation Menstruation: absent: As Per HPI, Amenorrhea, Amenorrhea/ Control, Currently Menstual, Cycle <21 Days, Cycle >35 Days, Cycle Variable, Menses 1-7 Days, Menses >/= 8 Days, Menses Variable, Cycle > 4 Weeks Between, No Menses for 6 Months, Heavy Menses, Light Menses, Normal Menses, Spotting Between Cycles , S/P Hysterectomy, Menopausal, Post Menopausal, Premenarche, Abnormal Vaginal Bleeding, Dysmenorrhea, Other - Musculoskeletal Musculoskeletal: As Per HPI - Integumentary Integumentary: absent: As Per HPI, Acne, Alopecia, Bleeding Lesions, Change in Hair, Change in Nails, Change in Pigmentation, Changing Lesions, Dry Skin, Erythema, Furuncle, Hirsutism, Lesions, New Lesions, Non-Healing Lesions, Photosensitivity, Pruritus, Rash, Skin Pain, Skin Ulcer, Sores, Striae, Swelling , Unusual Bruising, Wounds, Jaundice, Other - Neurological Neurological: absent: As Per HPI, Abnormal Gait, Abnormal Hearing, Abnormal Movements, Abnormal Speech, Behavioral Changes, Burning Sensations, Confusion, Convulsions, Disequilibrium, Dizziness, Numbness, Focal Weakness, Frequent Falls , Headaches, Lack of Coordination, Loss of Vision, Memory Loss, Paresthesias, Radicular Pain, Restless Legs, Sensory Deficit, Syncope, Tingling, Tremor, Vertigo, Weakness, Other Visual Disturbances, Other - Psychiatric Psychiatric: absent: As Per HPI, Abnormal Sleep Pattern, Anhedonia, Anxiety, Auditory Hallucinations, Behavioral Changes, Change in Appetite, Change in Libido, Confusion, Depression, Difficulty Concentrating, Hallucinations, Homicidal Ideation, Hopelessness, Irritability, Memory Loss, Mood Swings, Panic Attacks, Paranoia, Suicidal Ideation, Visual Hallucinations, Tactile Hallucinations, Other - Endocrine Endocrine: absent: As Per HPI, Change in Body Appearance, Change in Libido, Cold Intolorance, Deepening of Voice, Excessive Sweating, Fatigue, Flushing, Heat Intolorance, Increase in Ring/Shoe/Hat Size, Palpitations, Polydipsia, Polyphagia, Polyuria, Other Past Patient History - Infectious Disease Hx of Infectious Diseases: None - Past Medical History & Family History Past Medical History?: Yes - Past Social History Smoking Status: Never Smoked - CARDIAC Hx Congestive Heart Failure: Yes - PULMONARY Hx Chronic Obstructive Pulmonary Disease (COPD): Yes - NEUROLOGICAL Hx Neurological Disorder: No - HEENT Hx HEENT Problems: Yes Hx Blind: Yes (legally) - RENAL Hx Chronic Kidney Disease: No - ENDOCRINE/METABOLIC Hx Endocrine Disorders: No - HEMATOLOGICAL/ONCOLOGICAL Hx Anemia: Yes - INTEGUMENTARY Hx Dermatological Problems: No - MUSCULOSKELETAL/RHEUMATOLOGICAL Hx Arthritis: Yes - GASTROINTESTINAL Hx Diverticulitis: Yes - GENITOURINARY/GYNECOLOGICAL Hx Genitourinary Disorders: No - PSYCHIATRIC Hx Substance Use: No - SURGICAL HISTORY Hx Surgeries: Yes Hx Orthopedic Surgery: Yes (hip surgery as per patient) - ANESTHESIA Hx Anesthesia: Yes Hx Anesthesia Reactions: No Hx Malignant Hyperthermia: No Meds Allergies/Adverse Reactions: Allergies Allergy/AdvReac Type Severity Reaction Status Date / Time aspirin Allergy Verified 11/21/16 02:08 ciprofloxacin [From Cipro] Allergy Verified 11/21/16 02:08 ciprofloxacin HCl Allergy Verified 11/21/16 02:08 [From Cipro] Penicillins Allergy Verified 11/21/16 02:08 cefepime AdvReac Unknown ARRHYTHMIA Verified 11/21/16 02:08 - Medications Medications: Current Medications Acetaminophen (Tylenol 325mg Tab) 650 mg PO Q6 PRN PRN Reason: Pain, moderate (4-7) Last Admin: 01/02/17 05:38 Dose: 650 mg Albuterol/Ipratropium (Duoneb 3 Mg/0.5 Mg (3 Ml) Ud) 3 ml INH RQ6 [facility] Last Admin: 01/02/17 13:06 Dose: 3 ml Albuterol/Ipratropium (Duoneb 3 Mg/0.5 Mg (3 Ml) Ud) 3 ml INH RQ6 [facility] Last Admin: 01/02/17 13:06 Dose: Not Given Guaifenesin (Robitussin) 100 mg PO Q4H PRN PRN Reason: Cough Last Admin: 12/31/16 10:29 Dose: 100 mg Azithromycin 500 mg/ Sodium (Chloride) 250 mls @ 250 mls/hr IVPB DAILY [facility] Last Admin: 01/02/17 11:05 Dose: 250 mls/hr Vancomycin/Sodium Chloride (Vancocin) 200 mls @ 133.333 mls/hr IVPB Q24H [facility] Last Admin: 01/02/17 13:57 Dose: 133.333 mls/hr Methylprednisolone (Solu-Medrol) 40 mg IVP Q8 [facility] Last Admin: 01/02/17 13:24 Dose: 40 mg Mupirocin (Bactroban 2% Nasal) 0.5 gm JENNIFER BID [facility] Last Admin: 01/02/17 11:04 Dose: 0.5 gm Pantoprazole Sodium (Protonix Ec Tab) 40 mg PO DAILY [facility] Last Admin: 01/02/17 11:04 Dose: 40 mg Fluticasone/Salmeterol (Advair Diskus 250/50) 1 puff INH RQ12 [facility] Last Admin: 01/02/17 07:13 Dose: Not Given Physical Exam - Constitutional Appears: No Acute Distress, Cachectic, Chronically Ill - Head Exam Head Exam: ATRAUMATIC, NORMAL INSPECTION, NORMOCEPHALIC - Eye Exam Eye Exam: EOMI, PERRL. absent: Scleral icterus Pupil Exam: NORMAL ACCOMODATION - ENT Exam ENT Exam: Mucous Membranes Dry, Normal External Ear Exam, Normal Oropharynx - Neck Exam Neck exam: Negative for: Lymphadenopathy, Thyromegaly - Respiratory Exam Respiratory Exam: Decreased Breath Sounds, Rhonchi - Cardiovascular Exam Cardiovascular Exam: REGULAR RHYTHM, +S1, +S2 - GI/Abdominal Exam GI & Abdominal Exam: Diminished Bowel Sounds, Distended, Soft. absent: Guarding , Rebound, Rigid, Tenderness - Rectal Exam Rectal Exam: Deferred - Exam Exam: NORMAL INSPECTION - Extremities Exam Extremities exam: Positive for: pedal pulses present. Negative for: calf tenderness, pedal edema, tenderness - Back Exam Back exam: absent: CVA tenderness (L), CVA tenderness (R), paraspinal tenderness - Neurological Exam Neurological exam: Alert, CN II-XII Intact, Oriented x3, Reflexes Normal - Psychiatric Exam Psychiatric exam: Normal Mood - Skin Skin Exam: Dry Results - Vital Signs Recent Vital Signs: Last Vital Signs Temp 98.6 F 01/02/17 15:28 Pulse 105 H 01/02/17 16:51 Resp 19 01/02/17 15:28 BP 92/61 L 01/02/17 15:28 Pulse Ox 100 01/02/17 15:28 - Labs Result Diagrams: 01/02/17 08:06 01/02/17 08:06 Labs: Laboratory Results - last 24 hr 01/02/17 08:06 WBC 7.3 D RBC 2.92 L Hgb 9.2 L Hct 27.7 L MCV 95.0 MCH 31.6 H MCHC 33.3 RDW 16.6 H Plt Count 256 MPV 10.3 Neut % (Auto) 89.3 H Lymph % (Auto) 8.2 L [place] % (Auto) 2.3 Eos % (Auto) 0.0 Baso % (Auto) 0.2 Neut # 6.5 Lymph # 0.6 L [place] # 0.2 Eos # 0.0 Baso # 0.0 Neutrophils % (Manual) 62 Band Neutrophils % 28 H* Lymphocytes % (Manual) 8 L Monocytes % (Manual) 2 Nucleated RBC % 2 H Platelet Estimate Normal Giant Platelets Present Hypochromasia (manual) Slight Poikilocytosis (manual Slight Basophilic Stippling Slight Anisocytosis (manual) Moderate Microcytosis (manual) Slight Macrocytosis (manual) Slight Target Cells Slight Tear Drop Cells Slight Ovalocytes Slight [place] Cells Slight Sodium 137 Potassium 4.6 Chloride 104 Carbon Dioxide 25 Anion Gap 13 BUN 34 H Creatinine 0.8 Est GFR ( Amer) > 60 Est GFR (Non-Af Amer) > 60 Random Glucose 161 H Calcium 7.3 L Total Bilirubin 3.2 H AST 16 ALT 18 Alkaline Phosphatase 64 Ammonia 14 Total Protein 6.5 Albumin 2.6 L Globulin 3.9 Albumin/Globulin Ratio 0.6 L Hepatitis A IgM Ab Negative Hep Bs Antigen Negative Hep B Core IgM Ab Negative Hepatitis C Antibody Negative Assessment & Plan (1) Anemia Status: Acute (2) Pancytopenia Status: Acute (3) CHF (congestive heart failure) Status: Acute (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 infection
--- NOTE | 2017-01-02 18:47 | CP.PCM.PN ---
Subjective - Date & Time of Evaluation Date of Evaluation: 01/02/17 Time of Evaluation: 18:25 - Subjective Subjective: clinically same Objective - Vital Signs/Intake and Output Vital Signs (last 24 hours): Temp Pulse Resp BP Pulse Ox 98.6 F 105 H 19 92/61 L 100 01/02/17 15:28 01/02/17 16:51 01/02/17 15:28 01/02/17 15:28 01/02/17 15:28 Intake and Output: 01/02/17 01/02/17 06:59 18:59 Intake Total 510 Output Total 350 125 Balance -350 385 - Medications Medications: Current Medications Acetaminophen (Tylenol 325mg Tab) 650 mg PO Q6 PRN PRN Reason: Pain, moderate (4-7) Last Admin: 01/02/17 05:38 Dose: 650 mg Albuterol/Ipratropium (Duoneb 3 Mg/0.5 Mg (3 Ml) Ud) 3 ml INH RQ6 [facility] Last Admin: 01/02/17 13:06 Dose: 3 ml Albuterol/Ipratropium (Duoneb 3 Mg/0.5 Mg (3 Ml) Ud) 3 ml INH RQ6 [facility] Last Admin: 01/02/17 13:06 Dose: Not Given Guaifenesin (Robitussin) 100 mg PO Q4H PRN PRN Reason: Cough Last Admin: 12/31/16 10:29 Dose: 100 mg Azithromycin 500 mg/ Sodium (Chloride) 250 mls @ 250 mls/hr IVPB DAILY [facility] Last Admin: 01/02/17 11:05 Dose: 250 mls/hr Vancomycin/Sodium Chloride (Vancocin) 200 mls @ 133.333 mls/hr IVPB Q24H [facility] Last Admin: 01/02/17 13:57 Dose: 133.333 mls/hr Methylprednisolone (Solu-Medrol) 40 mg IVP Q8 [facility] Last Admin: 01/02/17 13:24 Dose: 40 mg Mupirocin (Bactroban 2% Nasal) 0.5 gm JENNIFER BID [facility] Last Admin: 01/02/17 17:52 Dose: 0.5 gm Pantoprazole Sodium (Protonix Ec Tab) 40 mg PO DAILY [facility] Last Admin: 01/02/17 11:04 Dose: 40 mg Fluticasone/Salmeterol (Advair Diskus 250/50) 1 puff INH RQ12 [facility] Last Admin: 01/02/17 07:13 Dose: Not Given - Labs Labs: 01/02/17 08:06 01/02/17 08:06 PT 19.3 SECONDS (9.7-12.2) H 12/29/16 23:14 INR 1.7 12/29/16 23:14 APTT 41 SECONDS (21-34) H 12/29/16 23:14 - Constitutional Appears: Well - Head Exam Head Exam: ATRAUMATIC, NORMAL INSPECTION, NORMOCEPHALIC - Eye Exam Eye Exam: EOMI, Normal appearance, PERRL Pupil Exam: NORMAL ACCOMODATION, PERRL - ENT Exam ENT Exam: Mucous Membranes Moist, Normal Exam - Neck Exam Neck Exam: Full ROM, Normal Inspection. absent: Lymphadenopathy - Respiratory Exam Respiratory Exam: Decreased Breath Sounds - Cardiovascular Exam Cardiovascular Exam: REGULAR RHYTHM, +S1, +S2 - GI/Abdominal Exam GI & Abdominal Exam: Soft, Diminished Bowel Sounds - Rectal Exam Rectal Exam: Deferred Assessment and Plan - Assessment and Plan (Free Text) Plan: iv antibioti duoneb ivf lasix prn margie as ordered hb today is 9.2 mg/dl hgb monitoring poor prognosis
[2017-01-03] MEDS: Albuterol-Ipratrop 3 mg / 0.5 (3 ml) UD INH SCH ×5 (01:49→20:34)
[2017-01-03] MEDS: MethylPREDNISolone 40 mg Vial IVP SCH ×3 (05:34→22:10)
[2017-01-03 06:25] LABS: BASO % 0.1 % (0.0-2.0); HEMATOCRIT 21.3 % (34.0-47.0); LYMPH # 0.4 K/uL (1.0-4.3); LYMPH % 7.6 % (20.0-40.0); MEAN CORPUSCULAR HEMOGLOBIN 31.5 pg (27.0-31.0); MEAN CORPUSCULAR HGB CONC 33.1 g/dL (33.0-37.0); MEAN PLATELET VOLUME 10.5 fL (7.2-11.7); MONO # 0.4 K/uL (0.0-0.8); MONO % 6.3 % (0.0-10.0); NRBC % 0.2 % (0.0-2.0); PLATELET COUNT 137 K/uL (130-400); RED CELL DISTRIBUTION WIDTH 16.3 % (11.5-14.5); WHITE BLOOD COUNT 5.7 K/uL (4.8-10.8)
--- NOTE | 2017-01-03 07:03 | CP.PCM.PN ---
Subjective - Date & Time of Evaluation Date of Evaluation: 01/03/17 Time of Evaluation: 09:00 - Subjective Subjective: Dr. Herrera service: Patient examined and seen in room. Patient says he has is some mild pain, she has very little appetite. She feels a little better since her pericentesis yesterday. Patient has agreed to DNR/DNI after it was explained to her. Objective - Vital Signs/Intake and Output Vital Signs (last 24 hours): Temp Pulse Resp BP Pulse Ox 97.6 F 98 H 20 91/53 L 98 01/02/17 23:05 01/02/17 23:05 01/02/17 23:05 01/02/17 23:05 01/02/17 23:05 Intake and Output: 01/03/17 01/03/17 06:59 18:59 Output Total 200 Balance -200 - Medications Medications: Current Medications Acetaminophen (Tylenol 325mg Tab) 650 mg PO Q6 PRN PRN Reason: Pain, moderate (4-7) Last Admin: 01/02/17 05:38 Dose: 650 mg Albuterol/Ipratropium (Duoneb 3 Mg/0.5 Mg (3 Ml) Ud) 3 ml INH RQ6 [facility] Last Admin: 01/03/17 01:49 Dose: Not Given Albuterol/Ipratropium (Duoneb 3 Mg/0.5 Mg (3 Ml) Ud) 3 ml INH RQ6 [facility] Last Admin: 01/03/17 01:49 Dose: Not Given Guaifenesin (Robitussin) 100 mg PO Q4H PRN PRN Reason: Cough Last Admin: 12/31/16 10:29 Dose: 100 mg Azithromycin 500 mg/ Sodium (Chloride) 250 mls @ 250 mls/hr IVPB DAILY [facility] Last Admin: 01/02/17 11:05 Dose: 250 mls/hr Vancomycin/Sodium Chloride (Vancocin) 200 mls @ 133.333 mls/hr IVPB Q24H [facility] Last Admin: 01/02/17 13:57 Dose: 133.333 mls/hr Methylprednisolone (Solu-Medrol) 40 mg IVP Q8 [facility] Last Admin: 01/03/17 05:34 Dose: 40 mg Mupirocin (Bactroban 2% Nasal) 0.5 gm JENNIFER BID [facility] Last Admin: 01/02/17 17:52 Dose: 0.5 gm Pantoprazole Sodium (Protonix Ec Tab) 40 mg PO DAILY [facility] Last Admin: 01/02/17 11:04 Dose: 40 mg Fluticasone/Salmeterol (Advair Diskus 250/50) 1 puff INH RQ12 [facility] Last Admin: 01/02/17 19:32 Dose: Not Given - Labs Labs: 01/03/17 06:14 01/02/17 08:06 PT 19.3 SECONDS (9.7-12.2) H 12/29/16 23:14 INR 1.7 12/29/16 23:14 APTT 41 SECONDS (21-34) H 12/29/16 23:14 - Constitutional Appears: Cachectic, Chronically Ill - Head Exam Head Exam: NORMAL INSPECTION - Eye Exam Eye Exam: Normal appearance. absent: PERRL, Scleral icterus Additional comments: pale - ENT Exam ENT Exam: Normal Exam - Neck Exam Neck Exam: Normal Inspection - Respiratory Exam Respiratory Exam: Decreased Breath Sounds, Clear to Ausculation Bilateral. absent: Rhonchi - Cardiovascular Exam Cardiovascular Exam: REGULAR RHYTHM, RRR, +S1, +S2. absent: Gallop, Rubs - GI/Abdominal Exam GI & Abdominal Exam: Soft, Normal Bowel Sounds. absent: Tenderness - Extremities Exam Extremities Exam: absent: Pedal Edema - Back Exam Back Exam: NORMAL INSPECTION - Psychiatric Exam Psychiatric exam: Normal Affect, Normal Mood - Skin Skin Exam: Normal Color Assessment and Plan - Assessment and Plan (Free Text) Assessment: Patient is now DNR/DNI signed paper work is in the chart Baceremia Patient has gram negative rods, Tigacyle ordered per Dr. David, have ordered UA with urine culture. She has a upper lobe consolidation on the right isde, Dr. Iniguez consulted. Coagulopathy This could be DIV vs nutritional vs liver disease vas possibly metistatic disease. Spoke with Dr. Meier heme/onc consult. She has a possible right upper lobe mass but patient has refused bronchoscopy per Dr. Iniguez's note Anemia 01/03: Hbg 7.0, transfused 2 units, with 20 of Lasix after of given after the 1st tranfusion. 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 Consult Pulm- Dr. Iniguez Continue Azithromycin 500mg IVPB Daily CXR- 12/30/16- Worsening dense opacification seen within the right upper to mid lung zone as well as the left lung base with associated small to moderate left pleural effusion. Additional milder patchy consolidative changes at the right luing base and left hilar region. Diffuse increased interstitial markings with scattered nodules/ nodularity throughout both lungs CXR- 01/01/17- No significant interval change in RUL consolidation. Persistent cardiomegaly and pulmonary venous congestion. Suspect small left pleural effusion Duoneb Q6h PRN Solumedrol Q6h PRN Guaifenesin 100mg PO Q4h PRN ADvair 250/50mcg 1 puff INH Q12h [facility] Liver abnormalities 01/03: Hepatitis panel negative, parcentesis yesterday removed 1800 cc straw colored fluid, follow up studies. CT of liver shows multiple hypodense lesions, see emr for full report. Dr. George consulted. Consult GI- Dr. George Abdominal CT- large abdominal and pelvic ascites. Anasarca. Moderate bilateral pleural effusions, consolidations and fibrosis. Nodular hepatic contour, may be cirrhosis. Indetermine 1.0cm left hepatic lobe and 1.1cm right inferior hepatic hypodense lesion. 7mm hypodensity within the anterior left hepatic lobe. Liver CT done- pending read Scheduled for IR paracentesis- f/u fluid studies Hx of CHF Previous ECHO 09/25/16: per Dr. Drake on last admission, Global Hypokenesis and LV dysfunction; EF 35%, Stage II diastolic dysfunction; No significant valve lesions Prophylactic Measure Protonix 40mg PO Daily [facility]
[2017-01-03 07:23] LABS: CHLORIDE 102 mmol/L (98-107); POTASSIUM 4.9 mmol/L (3.6-5.2); SODIUM 135 mmol/L (132-148)
[2017-01-03 07:25] LABS: GFR AFRICAN-AMERICAN > 60
[2017-01-03 07:26] LABS: ALB/GLOB RATIO 0.6 (1.0-2.1); ALKALINE PHOSPHATASE 51 U/L (38-126); ALT/SGPT 20 U/L (9-52); AST/SGOT 10 U/L (14-36); BILIRUBIN,TOTAL 1.9 mg/dL (0.2-1.3); BLOOD UREA NITROGEN 43 mg/dL (7-17); CALCIUM 7.1 mg/dl (8.6-10.4); CARBON DIOXIDE 24 mmol/L (22-30); GLUCOSE,RANDOM 166 mg/dL (65-105); TOTAL PROTEIN 5.9 g/dL (6.3-8.3)
--- NOTE | 2017-01-03 08:12 | CP.PCM.PN ---
<KristinelennoxHector golden - Last Filed: 01/03/17 11:39> Subjective - Date & Time of Evaluation Date of Evaluation: 01/03/17 Time of Evaluation: 07:25 - Subjective Subjective: PGY4 GI Fellow Progress Note Patient seen and examined bedside this morning. The patient continues to complain of diffuse body aches/pains. She remains very emotionally labile. Unable to provide any further description of her complaints. 12 system ROS cannot be performed given mentation. Objective - Vital Signs/Intake and Output Vital Signs (last 24 hours): Temp Pulse Resp BP Pulse Ox 97.6 F 98 H 20 91/53 L 98 01/02/17 23:05 01/02/17 23:05 01/02/17 23:05 01/02/17 23:05 01/02/17 23:05 Intake and Output: 01/03/17 01/03/17 06:59 18:59 Output Total 200 Balance -200 - Medications Medications: Current Medications Acetaminophen (Tylenol 325mg Tab) 650 mg PO Q6 PRN PRN Reason: Pain, moderate (4-7) Last Admin: 01/02/17 05:38 Dose: 650 mg Albuterol/Ipratropium (Duoneb 3 Mg/0.5 Mg (3 Ml) Ud) 3 ml INH RQ6 [facility] Last Admin: 01/03/17 01:49 Dose: Not Given Albuterol/Ipratropium (Duoneb 3 Mg/0.5 Mg (3 Ml) Ud) 3 ml INH RQ6 [facility] Last Admin: 01/03/17 01:49 Dose: Not Given Famotidine (Pepcid) 20 mg PO BID [facility] Guaifenesin (Robitussin) 100 mg PO Q4H PRN PRN Reason: Cough Last Admin: 12/31/16 10:29 Dose: 100 mg Azithromycin 500 mg/ Sodium (Chloride) 250 mls @ 250 mls/hr IVPB DAILY [facility] Last Admin: 01/02/17 11:05 Dose: 250 mls/hr Vancomycin/Sodium Chloride (Vancocin) 200 mls @ 133.333 mls/hr IVPB Q24H [facility] Last Admin: 01/02/17 13:57 Dose: 133.333 mls/hr Methylprednisolone (Solu-Medrol) 40 mg IVP Q8 [facility] Last Admin: 04/14/17 05:34 Dose: 40 mg Mupirocin (Bactroban 2% Nasal) 0.5 gm JENNIFER BID [facility] Last Admin: 01/02/17 17:52 Dose: 0.5 gm Fluticasone/Salmeterol (Advair Diskus 250/50) 1 puff INH RQ12 [facility] Last Admin: 01/02/17 19:32 Dose: Not Given - Labs Labs: 01/03/17 06:14 01/03/17 06:14 PT 19.3 SECONDS (9.7-12.2) H 12/29/16 23:14 INR 1.7 12/29/16 23:14 APTT 41 SECONDS (21-34) H 12/29/16 23:14 - Constitutional Appears: Non-toxic, No Acute Distress, Confused - Eye Exam Eye Exam: EOMI, PERRL - ENT Exam ENT Exam: Mucous Membranes Moist - Respiratory Exam Respiratory Exam: Clear to Ausculation Bilateral. absent: Rales, Rhonchi, Wheezes - Cardiovascular Exam Cardiovascular Exam: RRR, +S1, +S2, Murmur - GI/Abdominal Exam GI & Abdominal Exam: Soft, Tenderness (diffusely), Normal Bowel Sounds. absent : Distended, Firm, Guarding, Rigid, Organomegaly - Extremities Exam Extremities Exam: Normal Inspection. absent: Pedal Edema - Neurological Exam Neurological Exam: Altered, Awake - Psychiatric Exam Psychiatric exam: Anxious, Depressed - Skin Skin Exam: Dry, Warm Assessment and Plan - Assessment and Plan (Free Text) Assessment: Patient is an 81yo female with PMHx significant for chronic anemia with suspicion for MDS (biopsy proven), CHF (EF 35%), COPD, HTN and recent finding of a questionable RUL lung lesion on prior admissions who presented from [place] with severe anemia noted on CBC. 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 -Nodular liver contour and ascites concerning for cirrhosis; possibly 2/2 viral hepatitis or cardiac etiology - no know EtOH history -Liver lesions noted on triple phase CT -Prior documented RUL lung lesion, pt refused bronchoscopy/biopsy previously Plan: -Triple phase CT liver reviewed - concern for metastatic disease, especially in setting of known lung lesion -HGB downtrending again though no overt blood loss - suspect 2/2 know myelodysplasia; hematology evaluation -Awaiting lab work from paracentesis - 1800cc removed; pt more comfortable today - need albumin/protein/cell count/C&S/cytology -Hepatitis serologies negative -Ammonia level unremarkable - hold off on Lactulose therapy; consider psychiatric/neurology work up given altered mentation -2g Na diet -Would recommend diuretic therapy however patient hypotensive/borderline hyponatremic - continue to monitor -Patient has never had screening colonoscopy/Endoscopy -On protonix 40mg PO QAMAC -Will follow <Pastor Torres - Last Filed: 01/03/17 13:59> Objective - Vital Signs/Intake and Output Vital Signs (last 24 hours): Temp Pulse Resp BP Pulse Ox 98 F 119 H 22 95/64 L 99 01/03/17 13:41 01/03/17 13:41 01/03/17 13:41 01/03/17 13:41 01/03/17 07:05 Intake and Output: 01/03/17 01/03/17 06:59 18:59 Intake Total 0 Output Total 200 Balance -200 0 - Medications Medications: Current Medications Acetaminophen (Tylenol 325mg Tab) 650 mg PO Q6 PRN PRN Reason: Pain, moderate (4-7) Last Admin: 01/02/17 05:38 Dose: 650 mg Albuterol/Ipratropium (Duoneb 3 Mg/0.5 Mg (3 Ml) Ud) 3 ml INH RQ6 [facility] Last Admin: 01/03/17 13:33 Dose: 3 ml Famotidine (Pepcid) 20 mg PO BID [facility] Last Admin: 01/03/17 10:36 Dose: 20 mg Furosemide (Lasix) 20 mg IVP ONCE ONE Stop: 01/03/17 16:01 Guaifenesin (Robitussin) 100 mg PO Q4H PRN PRN Reason: Cough Last Admin: 12/31/16 10:29 Dose: 100 mg Tigecycline 50 mg/ Sodium (Chloride) 100 mls @ 100 mls/hr IV Q12H [facility] Methylprednisolone (Solu-Medrol) 40 mg IVP Q8 [facility] Last Admin: 01/03/17 13:08 Dose: 40 mg Mupirocin (Bactroban 2% Nasal) 0.5 gm JENNIFER BID [facility] Last Admin: 01/03/17 10:38 Dose: Not Given Fluticasone/Salmeterol (Advair Diskus 250/50) 1 puff INH RQ12 [facility] Last Admin: 01/03/17 08:27 Dose: Not Given - Labs Labs: 01/03/17 06:14 01/03/17 06:14 PT 18.5 SECONDS (9.7-12.2) H 01/03/17 11:24 INR 1.6 01/03/17 11:24 APTT 50 SECONDS (21-34) H 01/03/17 11:24 Attending/Attestation - Attestation I have personally seen and examined this patient.: Yes I have fully participated in the care of the patient.: Yes I have reviewed all pertinent clinical information, including history, physical exam and plan: Yes Notes (Text): 01/03/17 13:54 81 year old female with CHF, COPD, MDS, chronic anemia, possible cirrhosis. 1. Anemia 2. Ascites 3. Cirrhosis 4. Liver lesions Plan: - Low sodium diet as tolerated - transfuse as necessary - Awaiting results of ascitic fluid analysis, r/o sbp, need to calculate saag - viral hepatitis serologies negative - endoscopic evaluation of chronic anemia in the setting of liver lesions and possible cirrhosis is indicated, however patient has refused workup in past and is overall medically unwell, may not tolerated prep or procedure well - supportive care - appreciate palliative care follow up
[2017-01-03] MEDS: Fluticasone-Salmeterol 250-50mcg Diskus INH SCH ×2 (08:27→20:11)
[2017-01-03 08:32] LABS: NEUTROPHIL 65 % (50-75); TOTAL CELLS COUNTED 100
[2017-01-03 08:34] LABS: LARGE PLATELETS PRESENT
[2017-01-03] MEDS: Azithromycin 500 MG in Sodium Chloride 0.9% 250 ML IVPB SCH (10:36)
[2017-01-03] MEDS: Mupirocin 2% Ointment (NASAL) NAS SCH ×2 (10:38→18:43)
--- NOTE | 2017-01-03 11:06 | CP.PCM.PN ---
Subjective - Date & Time of Evaluation Date of Evaluation: 01/03/17 Time of Evaluation: 08:35 - Subjective Subjective: Patient seen and examined. Lying comfortably in no acute distress being treated for pneumonia off BIPAP Status post paracentesis yesterday and 1800 mL of fluid removed Objective - Vital Signs/Intake and Output Vital Signs (last 24 hours): Temp Pulse Resp BP Pulse Ox 97.9 F 93 H 20 94/58 L 99 01/03/17 07:05 01/03/17 09:00 01/03/17 07:05 01/03/17 07:05 01/03/17 07:05 Intake and Output: 01/03/17 01/03/17 06:59 18:59 Output Total 200 Balance -200 - Medications Medications: Current Medications Acetaminophen (Tylenol 325mg Tab) 650 mg PO Q6 PRN PRN Reason: Pain, moderate (4-7) Last Admin: 01/02/17 05:38 Dose: 650 mg Albuterol/Ipratropium (Duoneb 3 Mg/0.5 Mg (3 Ml) Ud) 3 ml INH RQ6 [facility] Last Admin: 01/03/17 08:25 Dose: 3 ml Albuterol/Ipratropium (Duoneb 3 Mg/0.5 Mg (3 Ml) Ud) 3 ml INH RQ6 [facility] Last Admin: 01/03/17 01:49 Dose: Not Given Famotidine (Pepcid) 20 mg PO BID [facility] Last Admin: 01/03/17 10:36 Dose: 20 mg Furosemide (Lasix) 20 mg IVP ONCE ONE Stop: 01/03/17 16:01 Guaifenesin (Robitussin) 100 mg PO Q4H PRN PRN Reason: Cough Last Admin: 12/31/16 10:29 Dose: 100 mg Azithromycin 500 mg/ Sodium (Chloride) 250 mls @ 250 mls/hr IVPB DAILY [facility] Last Admin: 01/03/17 10:36 Dose: 250 mls/hr Vancomycin/Sodium Chloride (Vancocin) 200 mls @ 133.333 mls/hr IVPB Q24H [facility] Last Admin: 01/02/17 13:57 Dose: 133.333 mls/hr Tigecycline 100 mg/ Sodium (Chloride) 100 mls @ 100 mls/hr IV ONCE ONE Stop: 01/03/17 11:59 Tigecycline 50 mg/ Sodium (Chloride) 100 mls @ 100 mls/hr IV Q12H [facility] Methylprednisolone (Solu-Medrol) 40 mg IVP Q8 [facility] Last Admin: 01/03/17 05:34 Dose: 40 mg Mupirocin (Bactroban 2% Nasal) 0.5 gm JENNIFER BID [facility] Last Admin: 01/03/17 10:38 Dose: Not Given Fluticasone/Salmeterol (Advair Diskus 250/50) 1 puff INH RQ12 [facility] Last Admin: 01/03/17 08:27 Dose: Not Given - Labs Labs: 01/03/17 06:14 01/03/17 06:14 PT 19.3 SECONDS (9.7-12.2) H 12/29/16 23:14 INR 1.7 12/29/16 23:14 APTT 41 SECONDS (21-34) H 12/29/16 23:14 - Head Exam Head Exam: ATRAUMATIC, NORMOCEPHALIC - ENT Exam ENT Exam: Mucous Membranes Moist - Neck Exam Neck Exam: Normal Inspection - Respiratory Exam Respiratory Exam: Decreased Breath Sounds - Cardiovascular Exam Cardiovascular Exam: REGULAR RHYTHM - GI/Abdominal Exam GI & Abdominal Exam: Soft Assessment and Plan (1) Pneumonia Assessment & Plan: Continue antibiotics and BiPAP as needed Status: Acute (2) Anemia Assessment & Plan: Hematology evaluation and transfuse as needed Status: Acute (3) Lung mass Status: Acute
[2017-01-03 11:40] LABS: FIBRINOGEN 298 mg/dL (200-400)
--- NOTE | 2017-01-03 11:41 | CON ---
DATE: 01/03/2017 This is an 81-year-old woman who was admitted for anemia and weakness. I have seen her several times in the past year. She has multiple medical problems and gives a very poor history. PHYSICAL EXAMINATION: SKIN: No petechiae, no bruises, no telangiectasia. HEENT: Anicteric. No mucosal lesions noted. NODES: None palpable in the axillary, cervical, supraclavicular or inguinal regions. LUNGS: Clear at present. The patient is able to lie flat. HEART: S1, S2. BREASTS: No mass. ABDOMEN: Shows no liver, no spleen. The patient just had her ascites tapped so there seems to be a little bit of ascites now, but no omental caking or masses. EXTREMITIES: No edema. CENTRAL NERVOUS SYSTEM: Plantars are downgoing bilaterally. The patient gives a very poor history. Her hemoglobin was about 8; it has been drifting down. It is now down to 7 with a normochromic normocytic, no increased or low polys on peripheral smear and no p olychromasia. The patient has multiple medical problems including cirrhotic liver with ascites, multiple transfusio ns ____ due to myelodysplastic syndrome. For a period of time she was seeing a shovel logger for Proc rit shots but she refused to go for the Procrit shots, and when she is discharged to the halfway she gets readmitted for anemia and we have to give her blood transfusions. At this point, again, I would consider giving her Procrit 40,000 once a week and, in the halfway which goes back, to get hemoglobin testing once every 2 weeks, and if the hemoglobin is below 11 to get 40,000 units of Proc rit that week, and we can institute that here in the hospital; otherwise to transfuse patient as need ed for hemodynamic benefit which is usually to keep it above 9. 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 Although she is not really very alert now and has physical weakness, I do not expect she will be changing her mind. Jonny Abdi AWAN cc: [id number] TT: 01/03/2017 11:41:36 Confirmation # [id number] Dictation # [id number] [place]
[2017-01-03 11:43] LABS: INR 1.6
[2017-01-03 11:56] LABS: FDP INTERPRETATION POSITIVE (NEGATIVE); FDP QUANTITY >10<40 ug/mL (<10)
[2017-01-03 12:09] LABS: BILIRUBIN,DIRECT 0.7 mg/dL (0.0-0.4); PHOSPHOROUS 3.2 mg/dL (2.5-4.5)
--- NOTE | 2017-01-03 13:12 | RAD ---
HISTORY: rhales COMPARISON: Comparison made with chest radiograph 01/01/2017 FINDINGS: LUNGS: Right apical and upper lobe opacity probably represents some combination of atelectasis and or infiltrate. Mild right basilar atelectasis. Suspect mild left basilar atelectasis questionable small effusion. PLEURA: No significant pleural effusion identified, no pneumothorax apparent. CARDIOVASCULAR: Heart appears upper limits of normal/ borderline enlarged OSSEOUS STRUCTURES: No significant abnormalities. VISUALIZED UPPER ABDOMEN: Normal. OTHER FINDINGS: None. IMPRESSION: Right apical and upper lobe opacity probably represents some combination of atelectasis and or infiltrate. Mild right basilar atelectasis. Suspect mild left basilar atelectasis questionable small effusion.
[2017-01-03 15:28] LABS: RBC URINE 4 /hpf (0-3); URINE BACTERIA RARE (<OCC); URINE BILIRUBIN NEGATIVE (NEGATIVE); URINE BLOOD NEGATIVE (NEGATIVE); URINE COLOR Yellow (YELLOW); URINE GLUCOSE (UA) NORMAL (Normal); URINE KETONE NEGATIVE (NEGATIVE); URINE LEUKOCYTE ESTERASE 3+ Leu/uL (Negative); URINE PROTEIN NEGATIVE (NEGATIVE); URINE UROBILINOGEN NORMAL mg/dL (0.2-1.0); WBC URINE 71 /hpf (0-5)
--- NOTE | 2017-01-03 18:27 | CP.PCM.PN ---
Subjective - Date & Time of Evaluation Date of Evaluation: 01/03/17 Time of Evaluation: 08:00 - Subjective Subjective: MDRO in blood NAD poor prognosis on tygacil Objective - Vital Signs/Intake and Output Vital Signs (last 24 hours): Temp Pulse Resp BP Pulse Ox 98.3 F 110 H 20 93/60 L 98 01/03/17 15:00 01/03/17 15:00 01/03/17 15:00 01/03/17 15:00 01/03/17 15:00 Intake and Output: 01/03/17 01/03/17 06:59 18:59 Intake Total 0 Output Total 200 Balance -200 0 - Medications Medications: Current Medications Acetaminophen (Tylenol 325mg Tab) 650 mg PO Q6 PRN PRN Reason: Pain, moderate (4-7) Last Admin: 01/02/17 05:38 Dose: 650 mg Albuterol/Ipratropium (Duoneb 3 Mg/0.5 Mg (3 Ml) Ud) 3 ml INH RQ6 [facility] Last Admin: 01/03/17 13:33 Dose: 3 ml Famotidine (Pepcid) 20 mg PO BID [facility] Last Admin: 01/03/17 10:36 Dose: 20 mg Guaifenesin (Robitussin) 100 mg PO Q4H PRN PRN Reason: Cough Last Admin: 12/31/16 10:29 Dose: 100 mg Tigecycline 50 mg/ Sodium (Chloride) 100 mls @ 100 mls/hr IV Q12H [facility] Methylprednisolone (Solu-Medrol) 40 mg IVP Q8 [facility] Last Admin: 01/03/17 13:08 Dose: 40 mg Mupirocin (Bactroban 2% Nasal) 0.5 gm JENNIFER BID [facility] Last Admin: 01/03/17 10:38 Dose: Not Given Fluticasone/Salmeterol (Advair Diskus 250/50) 1 puff INH RQ12 [facility] Last Admin: 01/03/17 08:27 Dose: Not Given - Labs Labs: 01/03/17 06:14 01/03/17 06:14 PT 18.5 SECONDS (9.7-12.2) H 01/03/17 11:24 INR 1.6 01/03/17 11:24 APTT 50 SECONDS (21-34) H 01/03/17 11:24 - Constitutional Appears: Non-toxic, Chronically Ill - Head Exam Head Exam: NORMOCEPHALIC - Eye Exam Eye Exam: absent: Scleral icterus - ENT Exam ENT Exam: Mucous Membranes Dry - Neck Exam Neck Exam: absent: Lymphadenopathy - Respiratory Exam Respiratory Exam: Decreased Breath Sounds, Rhonchi - Cardiovascular Exam Cardiovascular Exam: REGULAR RHYTHM, +S1, +S2 - GI/Abdominal Exam GI & Abdominal Exam: Distended, Soft - Rectal Exam Rectal Exam: Deferred - Exam Exam: NORMAL INSPECTION - Extremities Exam Extremities Exam: absent: Calf Tenderness, Pedal Edema - Back Exam Back Exam: absent: CVA tenderness (L), CVA tenderness (R) - Neurological Exam Neurological Exam: Alert, Awake, Oriented x3 Assessment and Plan (1) Anemia Status: Acute (2) Pancytopenia Status: Acute (3) CHF (congestive heart failure) Status: Acute (4) MRSA (methicillin resistant Staphylococcus aureus) carrier Status: Acute (5) Lung mass Status: Acute
--- NOTE | 2017-01-03 21:43 | CP.PCM.CON ---
History of Present Illness - History of Present Illness History of Present Illness: 81 yo woman with long standing h/o MDS, diagnosed several years ago, when patient presented with severe anemia, requiring transfusions. Patient had refused transfusions initially, since then has been on Procrit and Vidaza, all of which was stopped over a year ago. She has been getting progressively weaker, with frequent admissions for severe symptomatic anemia. The patient appears very frail, poor appetite, without any overt bleeding. The work up reveals increased bands, CAT scan showing nodular liver with lesions (unclear etio) Assesment and Plan- Progresive MDS with increased bands and severe anemia, patient at this time seems to want lab work done and all transfusions continued at this time. Will hold off on peripheral blood flow cytometry as it will not impact treatment. Unclear etio of liver lesions and etio of cirrhosis in this patient who has no history of ETOH. At this time would not recommend any further workup i.e, tumor markers, biopsy. The patient is extremely frail, would recommend only palliative care in this elderly patient with poor performance status and comorbidities. Past Patient History - Infectious Disease Hx of Infectious Diseases: None - Past Medical History & Family History Past Medical History?: Yes - Past Social History Smoking Status: Never Smoked - CARDIAC Hx Congestive Heart Failure: Yes - PULMONARY Hx Chronic Obstructive Pulmonary Disease (COPD): Yes - NEUROLOGICAL Hx Neurological Disorder: No - HEENT Hx HEENT Problems: Yes Hx Blind: Yes (legally) - RENAL Hx Chronic Kidney Disease: No - ENDOCRINE/METABOLIC Hx Endocrine Disorders: No - HEMATOLOGICAL/ONCOLOGICAL Hx Anemia: Yes - INTEGUMENTARY Hx Dermatological Problems: No - MUSCULOSKELETAL/RHEUMATOLOGICAL Hx Arthritis: Yes - GASTROINTESTINAL Hx Diverticulitis: Yes - GENITOURINARY/GYNECOLOGICAL Hx Genitourinary Disorders: No - PSYCHIATRIC Hx Substance Use: No - SURGICAL HISTORY Hx Surgeries: Yes Hx Orthopedic Surgery: Yes (hip surgery as per patient) - ANESTHESIA Hx Anesthesia: Yes Hx Anesthesia Reactions: No Hx Malignant Hyperthermia: No Meds Allergies/Adverse Reactions: Allergies Allergy/AdvReac Type Severity Reaction Status Date / Time aspirin Allergy Verified 11/21/16 02:08 ciprofloxacin [From Cipro] Allergy Verified 11/21/16 02:08 ciprofloxacin HCl Allergy Verified 11/21/16 02:08 [From Cipro] Penicillins Allergy Verified 11/21/16 02:08 cefepime AdvReac Unknown ARRHYTHMIA Verified 11/21/16 02:08 - Medications Medications: Current Medications Acetaminophen (Tylenol 325mg Tab) 650 mg PO Q6 PRN PRN Reason: Pain, moderate (4-7) Last Admin: 01/02/17 05:38 Dose: 650 mg Albuterol/Ipratropium (Duoneb 3 Mg/0.5 Mg (3 Ml) Ud) 3 ml INH RQ6 [facility] Last Admin: 01/03/17 20:34 Dose: 3 ml Famotidine (Pepcid) 20 mg PO BID [facility] Last Admin: 01/03/17 18:43 Dose: 20 mg Guaifenesin (Robitussin) 100 mg PO Q4H PRN PRN Reason: Cough Last Admin: 12/31/16 10:29 Dose: 100 mg Tigecycline 50 mg/ Sodium (Chloride) 100 mls @ 100 mls/hr IV Q12H [facility] Methylprednisolone (Solu-Medrol) 40 mg IVP Q8 [facility] Last Admin: 01/03/17 13:08 Dose: 40 mg Mupirocin (Bactroban 2% Nasal) 0.5 gm JENNIFER BID [facility] Last Admin: 01/03/17 18:43 Dose: 0.5 gm Fluticasone/Salmeterol (Advair Diskus 250/50) 1 puff INH RQ12 [facility] Last Admin: 01/03/17 20:11 Dose: Not Given Results - Vital Signs Recent Vital Signs: Last Vital Signs Temp 97.4 F L 01/03/17 21:18 Pulse 102 H 01/03/17 21:18 Resp 16 01/03/17 21:18 BP 110/70 01/03/17 21:18 Pulse Ox 98 01/03/17 15:00 - Labs Result Diagrams: 01/03/17 06:14 01/03/17 06:14 Labs: Laboratory Results - last 24 hr 01/03/17 01/03/17 01/03/17 06:14 11:24 15:14 WBC 5.7 RBC 2.24 L Hgb 7.0 L D Hct 21.3 L MCV 95.0 MCH 31.5 H MCHC 33.1 RDW 16.3 H Plt Count 137 D MPV 10.5 Neut % (Auto) 86.0 H Lymph % (Auto) 7.6 L [place]ancock % (Auto) 6.3 Eos % (Auto) 0.0 Baso % (Auto) 0.1 Neut # 4.9 Lymph # 0.4 L [place]ancock # 0.4 Eos # 0.0 Baso # 0.0 Neutrophils % (Manual) 65 Band Neutrophils % 26 H* Lymphocytes % (Manual) 4 L Monocytes % (Manual) 5 Toxic Granulation Present Platelet Estimate Normal Large Platelets Present Hypochromasia (manual) Slight Poikilocytosis (manual Slight Anisocytosis (manual) Slight Target Cells Slight Ovalocytes Slight PT 18.5 H INR 1.6 APTT 50 H Fibrinogen 298 Fibrin Degrad Products Positive H Fibrin Degrad Prod, Qt >10<40 H Sodium 135 Potassium 4.9 Chloride 102 Carbon Dioxide 24 Anion Gap 13 BUN 43 H Creatinine 0.8 Est GFR ( Amer) > 60 Est GFR (Non-Af Amer) > 60 Random Glucose 166 H Calcium 7.1 L Phosphorus 3.2 Magnesium 2.0 Total Bilirubin 1.9 H Direct Bilirubin 0.7 H AST 10 L D ALT 20 Alkaline Phosphatase 51 Total Protein 5.9 L Albumin 2.3 L Globulin 3.6 Albumin/Globulin Ratio 0.6 L Urine Color Yellow Urine Clarity Hazy Urine pH 7.0 Ur Specific [place] 1.028 Urine Protein Negative Urine Glucose (UA) Normal Urine Ketones Negative Urine Blood Negative Urine Nitrate Negative Urine Bilirubin Negative Urine Urobilinogen Normal Ur Leukocyte Esterase 3+ H Urine WBC (Auto) 71 H Urine RBC (Auto) 4 H Urine Bacteria Rare Blood Type A POSITIVE Antibody Screen Negative
[2017-01-04] MEDS: Albuterol-Ipratrop 3 mg / 0.5 (3 ml) UD INH SCH ×5 (01:37→19:03)
[2017-01-04] MEDS: MethylPREDNISolone 40 mg Vial IVP SCH ×3 (06:03→22:47)
--- NOTE | 2017-01-04 07:03 | CP.PCM.PN ---
<Renetta Unger - Last Filed: 01/04/17 09:48> Subjective - Date & Time of Evaluation Date of Evaluation: 01/04/17 Time of Evaluation: 07:03 - Subjective Subjective: Gastroenterology Fellow/PGY4 Progress Note Patient notes unchanged generalized body aches. Tolerating diet. Received two units pRBCs overnight. A 12-point review of systems negative except for as above. Objective - Vital Signs/Intake and Output Vital Signs (last 24 hours): Temp Pulse Resp BP Pulse Ox 98.3 F 102 H 18 105/69 99 01/03/17 23:37 01/03/17 23:37 01/03/17 23:37 01/03/17 23:59 01/03/17 23:05 Intake and Output: 01/04/17 01/04/17 06:59 18:59 Intake Total 822 Output Total 750 Balance 72 - Medications Medications: Current Medications Acetaminophen (Tylenol 325mg Tab) 650 mg PO Q6 PRN PRN Reason: Pain, moderate (4-7) Last Admin: 01/02/17 05:38 Dose: 650 mg Albuterol/Ipratropium (Duoneb 3 Mg/0.5 Mg (3 Ml) Ud) 3 ml INH RQ6 [facility] Last Admin: 01/04/17 03:45 Dose: 3 ml Famotidine (Pepcid) 20 mg PO BID [facility] Last Admin: 01/03/17 18:43 Dose: 20 mg Guaifenesin (Robitussin) 100 mg PO Q4H PRN PRN Reason: Cough Last Admin: 12/31/16 10:29 Dose: 100 mg Tigecycline 50 mg/ Sodium (Chloride) 100 mls @ 100 mls/hr IV Q12H [facility] Last Admin: 01/03/17 22:10 Dose: 100 mls/hr Methylprednisolone (Solu-Medrol) 40 mg IVP Q8 [facility] Last Admin: 01/04/17 06:03 Dose: 40 mg Mupirocin (Bactroban 2% Nasal) 0.5 gm JENNIFER BID [facility] Last Admin: 01/03/17 18:43 Dose: 0.5 gm Fluticasone/Salmeterol (Advair Diskus 250/50) 1 puff INH RQ12 [facility] Last Admin: 01/03/17 20:11 Dose: Not Given - Labs Labs: 01/03/17 06:14 01/03/17 06:14 PT 18.5 SECONDS (9.7-12.2) H 01/03/17 11:24 INR 1.6 01/03/17 11:24 APTT 50 SECONDS (21-34) H 01/03/17 11:24 - Constitutional Appears: Cachectic, Chronically Ill - Head Exam Head Exam: ATRAUMATIC, NORMOCEPHALIC - Eye Exam Eye Exam: EOMI, PERRL Pupil Exam: PERRL. absent: Miosis, Mydriatic - ENT Exam ENT Exam: Mucous Membranes Moist, Normal Oropharynx - Neck Exam Neck Exam: Full ROM, Normal Inspection - Respiratory Exam Respiratory Exam: Clear to Ausculation Bilateral. absent: Rales, Rhonchi, Wheezes - Cardiovascular Exam Cardiovascular Exam: RRR, +S1, +S2. absent: Gallop, Rubs - GI/Abdominal Exam GI & Abdominal Exam: Soft, Normal Bowel Sounds. absent: Distended, Firm, Guarding, Rigid, Tenderness, Diminished Bowel Sounds, Organomegaly, Rebound - Extremities Exam Extremities Exam: Normal Inspection. absent: Pedal Edema - Neurological Exam Neurological Exam: Alert, Awake - Psychiatric Exam Psychiatric exam: Anxious, Depressed - Skin Skin Exam: Dry, Intact, Normal Color, Warm Assessment and Plan - Assessment and Plan (Free Text) Assessment: 81 year old female with history of MDS rquiring multiple transfusions for symptomatic anemia, previously on Procrit and Vidaza (last used over a year ago ), systolic CHF (EF 35%), Hypertension, COPD, and recurrent RUL HCAP presenting with severe anemia. Active treatment of severe anemia status post 5 units pRBCs (3-12/30, 2-01/03), sepsis 2/2 Pneumonia, UTI, Bacteremia, and newly diagnosed cirrhosis with multiple liver lesions on CT liver protocol. Plan: >MELD 16 >daily LFTs, INR >01/02 paracentesis- 1.8 Liters removed >no fluid analysis, not sent- contacted pathology- no fluid in lab >strict I&Os, diuretics held >Hepatitis panel negative >unconjugated hyperbilirubinemia-ordered hemolysis workup -LDH, haptoglobin, reticulocyte count >monitor H/H, FOBT negative >received 5 Units pRBCs >continue PPI >urine culture pending, blood-GNR >ID managing-on Tigecycline >low sodium diet >palliative care following >would benefit from repeat paracentesis for fluid analysis and endoscopic evaluation due to anemia, cirrhosis, and liver lesions if plan for aggressive medical management >poor prognosis in setting of new concern for cirrhosis, sepsis, metastatic liver lesions <Pastor Torres - Last Filed: 01/04/17 11:00> Objective - Vital Signs/Intake and Output Vital Signs (last 24 hours): Temp Pulse Resp BP Pulse Ox 97.6 F 90 20 97/58 L 99 01/04/17 08:17 01/04/17 08:17 01/04/17 08:17 01/04/17 08:25 01/04/17 08:17 Intake and Output: 01/04/17 01/04/17 06:59 18:59 Intake Total 822 Output Total 750 Balance 72 - Medications Medications: Current Medications Acetaminophen (Tylenol 325mg Tab) 650 mg PO Q6 PRN PRN Reason: Pain, moderate (4-7) Last Admin: 01/04/17 09:27 Dose: 650 mg Albuterol/Ipratropium (Duoneb 3 Mg/0.5 Mg (3 Ml) Ud) 3 ml INH RQ6 [facility] Last Admin: 01/04/17 07:47 Dose: 3 ml Famotidine (Pepcid) 20 mg PO BID [facility] Last Admin: 01/04/17 09:20 Dose: 20 mg Guaifenesin (Robitussin) 100 mg PO Q4H PRN PRN Reason: Cough Last Admin: 12/31/16 10:29 Dose: 100 mg Tigecycline 50 mg/ Sodium (Chloride) 100 mls @ 100 mls/hr IV Q12H [facility] Last Admin: 01/03/17 22:10 Dose: 100 mls/hr Methylprednisolone (Solu-Medrol) 40 mg IVP Q12 [facility] Last Admin: 01/04/17 09:21 Dose: 40 mg Mupirocin (Bactroban 2% Nasal) 0.5 gm JENNIFER BID [facility] Last Admin: 01/04/17 09:20 Dose: 0.5 gm Fluticasone/Salmeterol (Advair Diskus 250/50) 1 puff INH RQ12 [facility] Last Admin: 01/04/17 07:47 Dose: Not Given - Labs Labs: 01/04/17 06:28 01/04/17 06:28 PT 18.5 SECONDS (9.7-12.2) H 01/03/17 11:24 INR 1.6 01/03/17 11:24 APTT 50 SECONDS (21-34) H 01/03/17 11:24 Attending/Attestation - Attestation I have personally seen and examined this patient.: Yes I have fully participated in the care of the patient.: Yes I have reviewed all pertinent clinical information, including history, physical exam and plan: Yes Notes (Text): 01/04/17 10:57 81 year old female with CHF, COPD, MDS, chronic anemia, possible cirrhosis. 1. Anemia 2. Ascites 3. Cirrhosis 4. Liver lesions Plan: - Low sodium diet as tolerated - transfuse as necessary - ascitic fluid was not sent ot the lab, so we can not ascertain if the patient has SBP or what the SAAG is to determine etiology of ascites - viral hepatitis serologies negative - supportive care - if aggressive workup was desired, it would include any or all of the following including, endoscopy/colonoscopy, repeat paracentesis, and possibly liver biopsy of cirrhotic liver as well as lesions, however im not sure this is in keeping with the patients wishes at this point considering her overall advanced age, comorbid illness and overall condition
[2017-01-04 07:08] LABS: CHLORIDE 103 mmol/L (98-107)
[2017-01-04 07:09] LABS: POTASSIUM 5.3 mmol/L (3.6-5.2); SODIUM 132 mmol/L (132-148)
[2017-01-04 07:11] LABS: ALB/GLOB RATIO 0.6 (1.0-2.1); BILIRUBIN,TOTAL 2.5 mg/dL (0.2-1.3); CARBON DIOXIDE 25 mmol/L (22-30); GFR AFRICAN-AMERICAN > 60
[2017-01-04 07:12] LABS: ALKALINE PHOSPHATASE 55 U/L (38-126); ALT/SGPT 15 U/L (9-52); AST/SGOT 10 U/L (14-36); BLOOD UREA NITROGEN 49 mg/dL (7-17); GLUCOSE,RANDOM 165 mg/dL (65-105)
[2017-01-04 07:18] LABS: BASO % 0.1 % (0.0-2.0); HEMATOCRIT 26.4 % (34.0-47.0); LYMPH # 0.3 K/uL (1.0-4.3); LYMPH % 5.7 % (20.0-40.0); MEAN CORPUSCULAR HEMOGLOBIN 31.3 pg (27.0-31.0); MEAN CORPUSCULAR HGB CONC 33.7 g/dL (33.0-37.0); MONO # 0.4 K/uL (0.0-0.8); MONO % 6.4 % (0.0-10.0); NRBC % 0.1 % (0.0-2.0); PLATELET COUNT 132 K/uL (130-400); RED CELL DISTRIBUTION WIDTH 15.6 % (11.5-14.5); WHITE BLOOD COUNT 6.1 K/uL (4.8-10.8)
[2017-01-04] MEDS: Fluticasone-Salmeterol 250-50mcg Diskus INH SCH (07:47)
[2017-01-04 08:53] LABS: NEUTROPHIL 85 % (50-75); TOTAL CELLS COUNTED 100
[2017-01-04 08:55] LABS: LARGE PLATELETS PRESENT
[2017-01-04] MEDS ORDERED: Sod Polystyrene Sulf 15 gm/60 ml Oral Susp PO ONE (09:06)
[2017-01-04] MEDS: Mupirocin 2% Ointment (NASAL) NAS SCH ×2 (09:20→17:47)
--- NOTE | 2017-01-04 10:26 | CP.PCM.PN ---
Subjective - Date & Time of Evaluation Date of Evaluation: 01/04/17 Time of Evaluation: 10:40 - Subjective Subjective: clinically improving sitting comfortabally pt. sighned DNR/DNI Objective - Vital Signs/Intake and Output Vital Signs (last 24 hours): Temp Pulse Resp BP Pulse Ox 97.6 F 90 20 97/58 L 99 01/04/17 08:17 01/04/17 08:17 01/04/17 08:17 01/04/17 08:25 01/04/17 08:17 Intake and Output: 01/04/17 01/04/17 06:59 18:59 Intake Total 822 Output Total 750 Balance 72 - Medications Medications: Current Medications Acetaminophen (Tylenol 325mg Tab) 650 mg PO Q6 PRN PRN Reason: Pain, moderate (4-7) Last Admin: 01/04/17 09:27 Dose: 650 mg Albuterol/Ipratropium (Duoneb 3 Mg/0.5 Mg (3 Ml) Ud) 3 ml INH RQ6 [facility] Last Admin: 01/04/17 07:47 Dose: 3 ml Famotidine (Pepcid) 20 mg PO BID [facility] Last Admin: 01/04/17 09:20 Dose: 20 mg Guaifenesin (Robitussin) 100 mg PO Q4H PRN PRN Reason: Cough Last Admin: 12/31/16 10:29 Dose: 100 mg Tigecycline 50 mg/ Sodium (Chloride) 100 mls @ 100 mls/hr IV Q12H [facility] Last Admin: 01/03/17 22:10 Dose: 100 mls/hr Methylprednisolone (Solu-Medrol) 40 mg IVP Q12 [facility] Last Admin: 01/04/17 09:21 Dose: 40 mg Mupirocin (Bactroban 2% Nasal) 0.5 gm JENNIFER BID [facility] Last Admin: 01/04/17 09:20 Dose: 0.5 gm Fluticasone/Salmeterol (Advair Diskus 250/50) 1 puff INH RQ12 [facility] Last Admin: 01/04/17 07:47 Dose: Not Given - Labs Labs: 01/04/17 06:28 01/04/17 06:28 PT 18.5 SECONDS (9.7-12.2) H 01/03/17 11:24 INR 1.6 01/03/17 11:24 APTT 50 SECONDS (21-34) H 01/03/17 11:24 - Constitutional Appears: Well - Head Exam Head Exam: ATRAUMATIC, NORMAL INSPECTION, NORMOCEPHALIC - Eye Exam Eye Exam: EOMI, Normal appearance, PERRL Pupil Exam: NORMAL ACCOMODATION, PERRL - ENT Exam ENT Exam: Mucous Membranes Moist, Normal Exam - Neck Exam Neck Exam: Full ROM, Normal Inspection. absent: Lymphadenopathy - Respiratory Exam Respiratory Exam: Decreased Breath Sounds - Cardiovascular Exam Cardiovascular Exam: REGULAR RHYTHM, +S1, +S2 - GI/Abdominal Exam GI & Abdominal Exam: Soft, Diminished Bowel Sounds - Rectal Exam Rectal Exam: Deferred Assessment and Plan - Assessment and Plan (Free Text) Plan: continue same meds as ordered Dr. Hira medina hb monitor
--- NOTE | 2017-01-04 13:18 | CP.PCM.PN ---
Subjective - Date & Time of Evaluation Date of Evaluation: 01/04/17 Time of Evaluation: 10:00 - Subjective Subjective: MDRO in blood cont iv rx Objective - Vital Signs/Intake and Output Vital Signs (last 24 hours): Temp Pulse Resp BP Pulse Ox 97.6 F 90 20 97/58 L 99 01/04/17 08:17 01/04/17 08:17 01/04/17 08:17 01/04/17 08:25 01/04/17 08:17 Intake and Output: 01/04/17 01/04/17 06:59 18:59 Intake Total 822 Output Total 750 Balance 72 - Medications Medications: Current Medications Acetaminophen (Tylenol 325mg Tab) 650 mg PO Q6 PRN PRN Reason: Pain, moderate (4-7) Last Admin: 01/04/17 09:27 Dose: 650 mg Albuterol/Ipratropium (Duoneb 3 Mg/0.5 Mg (3 Ml) Ud) 3 ml INH RQ6 [facility] Last Admin: 01/04/17 07:47 Dose: 3 ml Famotidine (Pepcid) 20 mg PO BID [facility] Last Admin: 01/04/17 09:20 Dose: 20 mg Guaifenesin (Robitussin) 100 mg PO Q4H PRN PRN Reason: Cough Last Admin: 12/31/16 10:29 Dose: 100 mg Tigecycline 50 mg/ Sodium (Chloride) 100 mls @ 100 mls/hr IV Q12H [facility] Last Admin: 01/03/17 22:10 Dose: 100 mls/hr Methylprednisolone (Solu-Medrol) 40 mg IVP Q12 [facility] Last Admin: 01/04/17 09:21 Dose: 40 mg Mupirocin (Bactroban 2% Nasal) 0.5 gm JENNIFER BID [facility] Last Admin: 01/04/17 09:20 Dose: 0.5 gm Fluticasone/Salmeterol (Advair Diskus 250/50) 1 puff INH RQ12 [facility] Last Admin: 01/04/17 07:47 Dose: Not Given - Labs Labs: 01/04/17 06:28 01/04/17 06:28 PT 18.5 SECONDS (9.7-12.2) H 01/03/17 11:24 INR 1.6 01/03/17 11:24 APTT 50 SECONDS (21-34) H 01/03/17 11:24 - Constitutional Appears: Non-toxic, Chronically Ill - Head Exam Head Exam: NORMOCEPHALIC - Eye Exam Eye Exam: PERRL. absent: Scleral icterus - ENT Exam ENT Exam: Mucous Membranes Dry - Neck Exam Neck Exam: absent: Lymphadenopathy - Respiratory Exam Respiratory Exam: Decreased Breath Sounds, Rhonchi - Cardiovascular Exam Cardiovascular Exam: REGULAR RHYTHM, +S1, +S2 - GI/Abdominal Exam GI & Abdominal Exam: Distended, Soft. absent: Tenderness - Rectal Exam Rectal Exam: Deferred - Exam Exam: NORMAL INSPECTION - Extremities Exam Extremities Exam: absent: Calf Tenderness, Pedal Edema - Back Exam Back Exam: absent: CVA tenderness (L), CVA tenderness (R) - Neurological Exam Neurological Exam: Alert, Awake, Oriented x3 Assessment and Plan (1) Anemia Status: Acute (2) Pancytopenia Status: Acute (3) CHF (congestive heart failure) Status: Acute (4) MRSA (methicillin resistant Staphylococcus aureus) carrier Status: Acute (5) Lung mass Status: Acute
--- NOTE | 2017-01-04 20:03 | CP.PCM.PN ---
Subjective - Date & Time of Evaluation Date of Evaluation: 01/04/17 Time of Evaluation: 19:50 - Subjective Subjective: Patient seen and examined. Breathing much improved and sitting comfortably without BiPAP Afebrile awake and responsive Objective - Vital Signs/Intake and Output Vital Signs (last 24 hours): Temp Pulse Resp BP Pulse Ox 97.8 F 99 H 22 93/61 L 97 01/04/17 15:48 01/04/17 15:48 01/04/17 15:48 01/04/17 15:48 01/04/17 15:48 - Medications Medications: Current Medications Acetaminophen (Tylenol 325mg Tab) 650 mg PO Q6 PRN PRN Reason: Pain, moderate (4-7) Last Admin: 01/04/17 09:27 Dose: 650 mg Albuterol/Ipratropium (Duoneb 3 Mg/0.5 Mg (3 Ml) Ud) 3 ml INH RQ6 [facility] Last Admin: 01/04/17 19:03 Dose: 3 ml Famotidine (Pepcid) 20 mg PO BID [facility] Last Admin: 01/04/17 17:47 Dose: 20 mg Guaifenesin (Robitussin) 100 mg PO Q4H PRN PRN Reason: Cough Last Admin: 12/31/16 10:29 Dose: 100 mg Tigecycline 50 mg/ Sodium (Chloride) 100 mls @ 100 mls/hr IV Q12H [facility] Last Admin: 01/04/17 11:00 Dose: 100 mls/hr Methylprednisolone (Solu-Medrol) 40 mg IVP Q12 [facility] Last Admin: 01/04/17 09:21 Dose: 40 mg Mupirocin (Bactroban 2% Nasal) 0.5 gm JENNIFER BID [facility] Last Admin: 01/04/17 17:47 Dose: 0.5 gm Fluticasone/Salmeterol (Advair Diskus 250/50) 1 puff INH RQ12 [facility] Last Admin: 01/04/17 07:47 Dose: Not Given - Labs Labs: 01/04/17 06:28 01/04/17 06:28 PT 18.5 SECONDS (9.7-12.2) H 01/03/17 11:24 INR 1.6 01/03/17 11:24 APTT 50 SECONDS (21-34) H 04/14/17 11:24 - Head Exam Head Exam: ATRAUMATIC, NORMOCEPHALIC - Eye Exam Eye Exam: Normal appearance - ENT Exam ENT Exam: Mucous Membranes Moist - Neck Exam Neck Exam: Normal Inspection - Respiratory Exam Respiratory Exam: Decreased Breath Sounds - Cardiovascular Exam Cardiovascular Exam: REGULAR RHYTHM - GI/Abdominal Exam GI & Abdominal Exam: Soft, Normal Bowel Sounds Assessment and Plan (1) Pneumonia Assessment & Plan: Continue antibiotics BiPAP as needed Status: Acute (2) Anemia Status: Acute (3) Lung mass Status: Acute
[2017-01-05] MEDS: Albuterol-Ipratrop 3 mg / 0.5 (3 ml) UD INH SCH ×4 (01:20→21:09)
[2017-01-05] MEDS ORDERED: Bacitracin 500 Units/gm Oint Foilpak UD TOP ONE (06:31)
--- NOTE | 2017-01-05 07:12 | CP.PCM.PN ---
<Renetta Unger - Last Filed: 01/05/17 07:50> Subjective - Date & Time of Evaluation Date of Evaluation: 01/05/17 Time of Evaluation: 07:08 - Subjective Subjective: Gastroenterology Fellow/PGY4 Progress Note Patient notes improving generalized pain. Tolerating diet. No bowel movement. A 12-point review of systems negative except for as above. Objective - Vital Signs/Intake and Output Vital Signs (last 24 hours): Temp Pulse Resp BP Pulse Ox 97.6 F 106 H 20 94/61 L 94 L 01/05/17 04:05 01/05/17 04:39 01/05/17 04:05 01/05/17 04:05 01/05/17 04:05 Intake and Output: 01/05/17 01/05/17 06:59 18:59 Output Total 550 Balance -550 - Medications Medications: Current Medications Acetaminophen (Tylenol 325mg Tab) 650 mg PO Q6 PRN PRN Reason: Pain, moderate (4-7) Last Admin: 01/04/17 09:27 Dose: 650 mg Albuterol/Ipratropium (Duoneb 3 Mg/0.5 Mg (3 Ml) Ud) 3 ml INH RQ6 REBECCA Last Admin: 01/05/17 01:20 Dose: Not Given Famotidine (Pepcid) 20 mg PO BID REBECCA Last Admin: 01/04/17 17:47 Dose: 20 mg Guaifenesin (Robitussin) 100 mg PO Q4H PRN PRN Reason: Cough Last Admin: 12/31/16 10:29 Dose: 100 mg Tigecycline 50 mg/ Sodium (Chloride) 100 mls @ 100 mls/hr IV Q12H REBECCA Last Admin: 01/04/17 22:50 Dose: 100 mls/hr Methylprednisolone (Solu-Medrol) 40 mg IVP Q12 REBECCA Last Admin: 01/04/17 22:47 Dose: 40 mg Mupirocin (Bactroban 2% Nasal) 0.5 gm JENNIFER BID REBECCA Last Admin: 01/04/17 17:47 Dose: 0.5 gm Fluticasone/Salmeterol (Advair Diskus 250/50) 1 puff INH RQ12 REBECCA Last Admin: 01/04/17 07:47 Dose: Not Given - Labs Labs: 01/04/17 06:28 01/04/17 06:28 PT 18.5 SECONDS (9.7-12.2) H 01/03/17 11:24 INR 1.6 01/03/17 11:24 APTT 50 SECONDS (21-34) H 01/03/17 11:24 - Constitutional Appears: Non-toxic, No Acute Distress - Head Exam Head Exam: ATRAUMATIC, NORMOCEPHALIC - Eye Exam Eye Exam: EOMI, PERRL Pupil Exam: PERRL. absent: Miosis, Mydriatic - ENT Exam ENT Exam: Mucous Membranes Moist, Normal Oropharynx - Neck Exam Neck Exam: Full ROM, Normal Inspection - Respiratory Exam Respiratory Exam: Clear to Ausculation Bilateral. absent: Rales, Rhonchi, Wheezes - Cardiovascular Exam Cardiovascular Exam: RRR, +S1, +S2. absent: Gallop, Rubs - GI/Abdominal Exam GI & Abdominal Exam: Soft, Normal Bowel Sounds. absent: Distended, Firm, Guarding, Rigid, Tenderness, Mass, Organomegaly, Rebound - Extremities Exam Extremities Exam: Normal Inspection. absent: Pedal Edema - Neurological Exam Neurological Exam: Alert, Awake - Psychiatric Exam Psychiatric exam: Normal Affect, Normal Mood - Skin Skin Exam: Dry, Intact, Normal Color, Warm Assessment and Plan - Assessment and Plan (Free Text) Assessment: 81 year old female with history of MDS requiring multiple transfusions for symptomatic anemia, previously on Procrit and Vidaza (last used over a year ago ), systolic CHF (EF 35%), Hypertension, COPD, and recurrent RUL HCAP presenting with severe anemia. Active treatment of severe anemia status post 5 units pRBCs (3-12/30, 2-01/03), sepsis 2/2 Pneumonia, UTI, E coli Bacteremia, and newly diagnosed cirrhosis with multiple liver lesions on CT liver protocol. Plan: >MELD 16, today pending INR >daily LFTs, INR >01/02 paracentesis- 1.8 Liters removed >no fluid analysis, contacted pathology-labs not sent >strict I&Os, diuretics held >Hepatitis panel negative >low sodium diet >monitor H/H, FOBT negative >received 5 Units pRBCs >continue PPI >ID managing-on Tigecycline >palliative care following >if plan for aggressive medical management, would benefit from repeat paracentesis for fluid analysis, possible liver biopsy of cirrhosis/liver lesions, and endoscopic evaluation due to anemia >poor prognosis in setting of new concern for cirrhosis, sepsis, metastatic liver lesions in setting of multiple comorbidities <Pastor Torres - Last Filed: 01/05/17 11:43> Objective - Vital Signs/Intake and Output Vital Signs (last 24 hours): Temp Pulse Resp BP Pulse Ox 97.8 F 99 H 20 95/62 L 97 01/05/17 07:35 01/05/17 07:35 01/05/17 07:35 01/05/17 07:35 01/05/17 07:35 Intake and Output: 01/05/17 01/05/17 06:59 18:59 Output Total 550 Balance -550 - Medications Medications: Current Medications Acetaminophen (Tylenol 325mg Tab) 650 mg PO Q6 PRN PRN Reason: Pain, moderate (4-7) Last Admin: 01/05/17 09:44 Dose: 650 mg Albuterol/Ipratropium (Duoneb 3 Mg/0.5 Mg (3 Ml) Ud) 3 ml INH RQ6 REBECCA Last Admin: 01/05/17 07:55 Dose: 3 ml Famotidine (Pepcid) 20 mg PO BID REBECCA Last Admin: 01/05/17 09:39 Dose: 20 mg Guaifenesin (Robitussin) 100 mg PO Q4H PRN PRN Reason: Cough Last Admin: 12/31/16 10:29 Dose: 100 mg Tigecycline 50 mg/ Sodium (Chloride) 100 mls @ 100 mls/hr IV Q12H REBECCA Last Admin: 01/04/17 22:50 Dose: 100 mls/hr Methylprednisolone (Solu-Medrol) 40 mg IVP Q12 REBECCA Last Admin: 01/05/17 09:40 Dose: 40 mg Mupirocin (Bactroban 2% Nasal) 0.5 gm JENNIFER BID REBECCA Last Admin: 01/05/17 09:39 Dose: 0.5 gm Fluticasone/Salmeterol (Advair Diskus 250/50) 1 puff INH RQ12 REBECCA Last Admin: 01/05/17 07:56 Dose: Not Given - Labs Labs: 01/04/17 06:28 01/04/17 06:28 PT 18.5 SECONDS (9.7-12.2) H 01/03/17 11:24 INR 1.6 01/03/17 11:24 APTT 50 SECONDS (21-34) H 01/03/17 11:24 Attending/Attestation - Attestation I have personally seen and examined this patient.: Yes I have fully participated in the care of the patient.: Yes I have reviewed all pertinent clinical information, including history, physical exam and plan: Yes Notes (Text): 01/05/17 11:43 81 year old female with CHF, COPD, MDS, chronic anemia, possible cirrhosis. 1. Anemia 2. Ascites 3. Cirrhosis 4. Liver lesions Plan: - Low sodium diet as tolerated - transfuse as necessary - ascitic fluid was not sent to the lab, so we can not ascertain if the patient has SBP or what the SAAG is to determine etiology of ascites - viral hepatitis serologies negative - supportive care - if aggressive workup was desired, it would include any or all of the following including, endoscopy/colonoscopy, repeat paracentesis, and possibly liver biopsy of cirrhotic liver as well as lesions, however im not sure this is in keeping with the patients wishes at this point considering her overall advanced age, comorbid illness and overall condition
[2017-01-05] MEDS: Fluticasone-Salmeterol 250-50mcg Diskus INH SCH ×2 (07:56→21:09)
--- NOTE | 2017-01-05 09:37 | CP.PCM.PN ---
Subjective - Date & Time of Evaluation Date of Evaluation: 01/05/17 Time of Evaluation: 09:00 - Subjective Subjective: pt. tolerating diet clinically improving Objective - Vital Signs/Intake and Output Vital Signs (last 24 hours): Temp Pulse Resp BP Pulse Ox 97.8 F 99 H 20 95/62 L 97 01/05/17 07:35 01/05/17 07:35 01/05/17 07:35 01/05/17 07:35 01/05/17 07:35 Intake and Output: 01/05/17 01/05/17 06:59 18:59 Output Total 550 Balance -550 - Medications Medications: Current Medications Acetaminophen (Tylenol 325mg Tab) 650 mg PO Q6 PRN PRN Reason: Pain, moderate (4-7) Last Admin: 01/04/17 09:27 Dose: 650 mg Albuterol/Ipratropium (Duoneb 3 Mg/0.5 Mg (3 Ml) Ud) 3 ml INH RQ6 REBECCA Last Admin: 01/05/17 07:55 Dose: 3 ml Famotidine (Pepcid) 20 mg PO BID REBECCA Last Admin: 01/04/17 17:47 Dose: 20 mg Guaifenesin (Robitussin) 100 mg PO Q4H PRN PRN Reason: Cough Last Admin: 12/31/16 10:29 Dose: 100 mg Tigecycline 50 mg/ Sodium (Chloride) 100 mls @ 100 mls/hr IV Q12H REBECCA Last Admin: 01/04/17 22:50 Dose: 100 mls/hr Methylprednisolone (Solu-Medrol) 40 mg IVP Q12 REBECCA Last Admin: 01/04/17 22:47 Dose: 40 mg Mupirocin (Bactroban 2% Nasal) 0.5 gm JENNIFER BID REBECCA Last Admin: 01/04/17 17:47 Dose: 0.5 gm Fluticasone/Salmeterol (Advair Diskus 250/50) 1 puff INH RQ12 REBECCA Last Admin: 01/05/17 07:56 Dose: Not Given - Labs Labs: 01/04/17 06:28 01/04/17 06:28 PT 18.5 SECONDS (9.7-12.2) H 01/03/17 11:24 INR 1.6 01/03/17 11:24 APTT 50 SECONDS (21-34) H 01/03/17 11:24 Assessment and Plan (1) Anemia Status: Acute (2) CHF (congestive heart failure) Status: Acute (3) Chest pain Status: Acute (4) Compression deformity of vertebra Status: Acute (5) Contusion of wrist Status: Acute (6) Dehydration Status: Acute (7) Diastolic CHF, acute on chronic Status: Acute (8) Edema Status: Acute (9) Fatigue Status: Acute (10) Fever Status: Acute (11) Lung mass Status: Acute (12) MRSA (methicillin resistant Staphylococcus aureus) carrier Status: Acute (13) Pancytopenia Status: Acute (14) Pneumonia Status: Acute (15) Low back pain Status: Chronic (16) Severe anemia Status: Chronic - Assessment and Plan (Free Text) Plan: Dr.Aman Dr. David continue meds as ordered hb monitor f/u labs
[2017-01-05] MEDS: Mupirocin 2% Ointment (NASAL) NAS SCH ×2 (09:39→18:48)
[2017-01-05] MEDS: MethylPREDNISolone 40 mg Vial IVP SCH ×2 (09:40→22:41)
[2017-01-05] MEDS: guaiFENesin 100 mg/5 ml Syrup UD PO PRN (12:02)
[2017-01-06] MEDS: Albuterol-Ipratrop 3 mg / 0.5 (3 ml) UD INH SCH ×4 (01:17→19:06)
--- NOTE | 2017-01-06 07:09 | CP.PCM.PN ---
<Jon Bush H - Last Filed: 01/06/17 17:14> Subjective - Date & Time of Evaluation Date of Evaluation: 01/06/17 Time of Evaluation: 09:35 - Subjective Subjective: Dr. Herrera service: Patient seen and examined in room. Patient is complaining of pain but does not want any further blood work. Objective - Vital Signs/Intake and Output Vital Signs (last 24 hours): Temp Pulse Resp BP Pulse Ox 98 F 104 H 20 90/59 L 96 01/05/17 23:25 01/06/17 04:28 01/05/17 23:25 01/05/17 23:25 01/05/17 23:25 Intake and Output: 01/06/17 01/06/17 06:59 18:59 Intake Total 400 Output Total 700 Balance -300 - Medications Medications: Current Medications Acetaminophen (Tylenol 325mg Tab) 650 mg PO Q6 PRN PRN Reason: Pain, moderate (4-7) Last Admin: 01/05/17 09:44 Dose: 650 mg Albuterol/Ipratropium (Duoneb 3 Mg/0.5 Mg (3 Ml) Ud) 3 ml INH RQ6 REBECCA Last Admin: 01/06/17 01:17 Dose: 3 ml Famotidine (Pepcid) 20 mg PO BID REBECCA Last Admin: 01/05/17 18:48 Dose: 20 mg Guaifenesin (Robitussin) 100 mg PO Q4H PRN PRN Reason: Cough Last Admin: 01/05/17 12:02 Dose: 100 mg Tigecycline 50 mg/ Sodium (Chloride) 100 mls @ 100 mls/hr IV Q12H REBECCA Last Admin: 01/05/17 22:41 Dose: 100 mls/hr Methylprednisolone (Solu-Medrol) 40 mg IVP Q12 REBECCA Last Admin: 01/05/17 22:41 Dose: 40 mg Mupirocin (Bactroban 2% Nasal) 0.5 gm JENNIFER BID REBECCA Last Admin: 01/05/17 18:48 Dose: 0.5 gm Fluticasone/Salmeterol (Advair Diskus 250/50) 1 puff INH RQ12 REBECCA Last Admin: 01/05/17 21:09 Dose: Not Given - Labs Labs: 01/04/17 06:28 01/04/17 06:28 PT 18.5 SECONDS (9.7-12.2) H 01/03/17 11:24 INR 1.6 01/03/17 11:24 APTT 50 SECONDS (21-34) H 01/03/17 11:24 - Constitutional Appears: Non-toxic, No Acute Distress, Unkempt, Cachectic, Chronically Ill - Head Exam Head Exam: NORMAL INSPECTION - Eye Exam Eye Exam: Normal appearance Pupil Exam: NORMAL ACCOMODATION - Respiratory Exam Respiratory Exam: Clear to Ausculation Bilateral. absent: Rales, Rhonchi, Wheezes - Cardiovascular Exam Cardiovascular Exam: REGULAR RHYTHM, RRR, +S1, +S2. absent: Gallop, Rubs - GI/Abdominal Exam GI & Abdominal Exam: Soft - Neurological Exam Neurological Exam: Alert, Awake. absent: Oriented x3 - Psychiatric Exam Psychiatric exam: Depressed - Skin Skin Exam: Pallor Assessment and Plan - Assessment and Plan (Free Text) Assessment: Assessment: 01/06: Unable to contact family, Psych consult to determine patient's ability to make medical decisions. Previous note Patient is now DNR/DNI signed paper work is in the chart Baceremia Patient has gram negative rods, Tigacyle ordered per Dr. David, have ordered UA with urine culture. She has a upper lobe consolidation on the right isde, Dr. Iniguez consulted. Coagulopathy This could be DIV vs nutritional vs liver disease vas possibly metistatic disease. Spoke with Dr. Meier heme/onc consult. She has a possible right upper lobe mass but patient has refused bronchoscopy per Dr. Iniguez's note Anemia 01/03: Hbg 7.0, transfused 2 units, with 20 of Lasix after of given after the 1st tranfusion. 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 Consult Pulm- Dr. Iniguez Continue Azithromycin 500mg IVPB Daily CXR- 12/30/16- Worsening dense opacification seen within the right upper to mid lung zone as well as the left lung base with associated small to moderate left pleural effusion. Additional milder patchy consolidative changes at the right luing base and left hilar region. Diffuse increased interstitial markings with scattered nodules/ nodularity throughout both lungs CXR- 01/01/17- No significant interval change in RUL consolidation. Persistent cardiomegaly and pulmonary venous congestion. Suspect small left pleural effusion Duoneb Q6h PRN Solumedrol Q6h PRN Guaifenesin 100mg PO Q4h PRN ADvair 250/50mcg 1 puff INH Q12h REBECCA Liver abnormalities 01/03: Hepatitis panel negative, parcentesis yesterday removed 1800 cc straw colored fluid, follow up studies. CT of liver shows multiple hypodense lesions, see emr for full report. Dr. George consulted. Consult GI- Dr. George Abdominal CT- large abdominal and pelvic ascites. Anasarca. Moderate bilateral pleural effusions, consolidations and fibrosis. Nodular hepatic contour, may be cirrhosis. Indetermine 1.0cm left hepatic lobe and 1.1cm right inferior hepatic hypodense lesion. 7mm hypodensity within the anterior left hepatic lobe. Liver CT done- pending read Scheduled for IR paracentesis- f/u fluid studies Hx of CHF Previous ECHO 09/25/16: per Dr. Drake on last admission, Global Hypokenesis and LV dysfunction; EF 35%, Stage II diastolic dysfunction; No significant valve lesions Prophylactic Measure Protonix 40mg PO Daily SCDs <Ferny Herrera S - Last Filed: 01/06/17 19:55> Objective - Vital Signs/Intake and Output Vital Signs (last 24 hours): Temp Pulse Resp BP Pulse Ox 97.6 F 104 H 22 92/59 L 98 01/06/17 16:00 01/06/17 16:00 01/06/17 16:00 01/06/17 16:00 01/06/17 16:00 - Medications Medications: Current Medications Acetaminophen (Tylenol 325mg Tab) 650 mg PO Q6 PRN PRN Reason: Pain, moderate (4-7) Last Admin: 01/05/17 09:44 Dose: 650 mg Albuterol/Ipratropium (Duoneb 3 Mg/0.5 Mg (3 Ml) Ud) 3 ml INH RQ6 REBECCA Last Admin: 01/06/17 19:06 Dose: 3 ml Guaifenesin (Robitussin) 100 mg PO Q4H PRN PRN Reason: Cough Last Admin: 01/05/17 12:02 Dose: 100 mg Tigecycline 50 mg/ Sodium (Chloride) 100 mls @ 100 mls/hr IV Q12H PENDING SALE TO [facility] Last Admin: 01/06/17 11:00 Dose: 100 mls/hr Methylprednisolone (Solu-Medrol) 40 mg IVP Q12 [facility]END[facility] TO [facility] Last Admin: 01/06/17 09:48 Dose: 40 mg Mupirocin (Bactroban 2% Nasal) 0.5 gm JENNIFER BID REBECCA Last Admin: 01/06/17 18:02 Dose: 0.5 gm Fluticasone/Salmeterol (Advair Diskus 250/50) 1 puff INH RQ12 REBECCA Last Admin: 01/06/17 08:28 Dose: 1 puff - Labs Labs: 01/06/17 10:58 01/06/17 10:58 PT 18.7 SECONDS (9.7-12.2) H 01/06/17 10:58 INR 1.6 01/06/17 10:58 APTT 50 SECONDS (21-34) H 01/03/17 11:24 Attending/Attestation - Attestation I have personally seen and examined this patient.: Yes I have fully participated in the care of the patient.: Yes I have reviewed all pertinent clinical information, including history, physical exam and plan: Yes Notes (Text): 01/06/17 19:55 case seen and discussed [facility] staff adn resident
--- NOTE | 2017-01-06 08:26 | CP.PCM.PN ---
<Hector Simons - Last Filed: 01/06/17 11:03> Subjective - Date & Time of Evaluation Date of Evaluation: 01/06/17 Time of Evaluation: 07:00 - Subjective Subjective: PGY4 GI Fellow Progress Note Patient seen and examined bedside this morning. The patient states she is feeling slightly better today. Denies any change in her abdominal girth despite seeming more distended to me today. No new complaints. Still emotionally labile. 12 system ROS performed and negative except where stated. Objective - Vital Signs/Intake and Output Vital Signs (last 24 hours): Temp Pulse Resp BP Pulse Ox 98 F 104 H 20 90/59 L 96 01/05/17 23:25 01/06/17 07:30 01/05/17 23:25 01/05/17 23:25 01/05/17 23:25 Intake and Output: 01/06/17 01/06/17 06:59 18:59 Intake Total 400 Output Total 700 Balance -300 - Medications Medications: Current Medications Acetaminophen (Tylenol 325mg Tab) 650 mg PO Q6 PRN PRN Reason: Pain, moderate (4-7) Last Admin: 01/05/17 09:44 Dose: 650 mg Albuterol/Ipratropium (Duoneb 3 Mg/0.5 Mg (3 Ml) Ud) 3 ml INH RQ6 REBECCA Last Admin: 01/06/17 01:17 Dose: 3 ml Famotidine (Pepcid) 20 mg PO BID REBECCA Last Admin: 01/05/17 18:48 Dose: 20 mg Guaifenesin (Robitussin) 100 mg PO Q4H PRN PRN Reason: Cough Last Admin: 01/05/17 12:02 Dose: 100 mg Tigecycline 50 mg/ Sodium (Chloride) 100 mls @ 100 mls/hr IV Q12H REBECCA Last Admin: 01/05/17 22:41 Dose: 100 mls/hr Methylprednisolone (Solu-Medrol) 40 mg IVP Q12 REBECCA Last Admin: 01/05/17 22:41 Dose: 40 mg Mupirocin (Bactroban 2% Nasal) 0.5 gm JENNIFER BID REBECCA Last Admin: 01/05/17 18:48 Dose: 0.5 gm Fluticasone/Salmeterol (Advair Diskus 250/50) 1 puff INH RQ12 REBECCA Last Admin: 01/05/17 21:09 Dose: Not Given - Labs Labs: 01/04/17 06:28 01/04/17 06:28 PT 18.5 SECONDS (9.7-12.2) H 01/03/17 11:24 INR 1.6 01/03/17 11:24 APTT 50 SECONDS (21-34) H 01/03/17 11:24 - Constitutional Appears: Non-toxic, No Acute Distress - Eye Exam Eye Exam: EOMI, PERRL - ENT Exam ENT Exam: Mucous Membranes Dry - Respiratory Exam Respiratory Exam: Rales. absent: Clear to Ausculation Bilateral, Rhonchi, Wheezes - Cardiovascular Exam Cardiovascular Exam: RRR, +S1, +S2 - GI/Abdominal Exam GI & Abdominal Exam: Distended, Soft, Normal Bowel Sounds. absent: Firm, Guarding, Rigid, Tenderness, Organomegaly - Extremities Exam Extremities Exam: Normal Inspection. absent: Pedal Edema - Neurological Exam Neurological Exam: Alert, Awake, Oriented x3 - Psychiatric Exam Psychiatric exam: Anxious, Depressed - Skin Skin Exam: Dry, Warm Assessment and Plan - Assessment and Plan (Free Text) Assessment: Patient is an 81yo female with PMHx significant for chronic anemia with suspicion for MDS (biopsy proven), CHF (EF 35%), COPD, HTN and recent finding of a questionable RUL lung lesion on prior admissions who presented from [place] with severe anemia noted on CBC. 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 -Nodular liver contour and ascites/cirrhosis -Liver lesions noted on triple phase CT -Prior documented RUL lung lesion, pt refused bronchoscopy/biopsy previously Plan: -Continue to transfuse as needed givne h/o MDS anemia -Pt refusing lab work - stating she does not wish to have any more needle sticks -Given abdominal distention, if seeking aggressive care, would recommend repeat paracentesis and fluid analysis which was not performed on initial paracentesis , would request albumin/protein/cell count/C&S/cytology -Hepatitis serologies negative -2g Na diet -Patient has never had screening colonoscopy/endoscopy -On protonix 40mg PO QAMAC -Will follow <Azael Chandra MD - Last Filed: 01/06/17 11:47> Objective - Vital Signs/Intake and Output Vital Signs (last 24 hours): Temp Pulse Resp BP Pulse Ox 99 F 104 H 20 99/64 L 97 01/06/17 07:25 01/06/17 07:30 01/06/17 07:25 01/06/17 07:25 01/06/17 07:25 Intake and Output: 01/06/17 01/06/17 06:59 18:59 Intake Total 400 Output Total 700 Balance -300 - Medications Medications: Current Medications Acetaminophen (Tylenol 325mg Tab) 650 mg PO Q6 PRN PRN Reason: Pain, moderate (4-7) Last Admin: 01/05/17 09:44 Dose: 650 mg Albuterol/Ipratropium (Duoneb 3 Mg/0.5 Mg (3 Ml) Ud) 3 ml INH RQ6 REBECCA Last Admin: 01/06/17 08:28 Dose: 3 ml Famotidine (Pepcid) 20 mg PO BID REBECCA Last Admin: 01/06/17 09:48 Dose: 20 mg Guaifenesin (Robitussin) 100 mg PO Q4H PRN PRN Reason: Cough Last Admin: 01/05/17 12:02 Dose: 100 mg Tigecycline 50 mg/ Sodium (Chloride) 100 mls @ 100 mls/hr IV Q12H REBECCA Last Admin: 01/05/17 22:41 Dose: 100 mls/hr Methylprednisolone (Solu-Medrol) 40 mg IVP Q12 REBECCA Last Admin: 01/06/17 09:48 Dose: 40 mg Mupirocin (Bactroban 2% Nasal) 0.5 gm JENNIFER BID REBECCA Last Admin: 01/06/17 09:49 Dose: 0.5 gm Fluticasone/Salmeterol (Advair Diskus 250/50) 1 puff INH RQ12 REBECCA Last Admin: 01/06/17 08:28 Dose: 1 puff - Labs Labs: 01/06/17 10:58 01/06/17 10:58 PT 18.7 SECONDS (9.7-12.2) H 01/06/17 10:58 INR 1.6 01/06/17 10:58 APTT 50 SECONDS (21-34) H 01/03/17 11:24 Attending/Attestation - Attestation I have personally seen and examined this patient.: Yes I have fully participated in the care of the patient.: Yes I have reviewed all pertinent clinical information, including history, physical exam and plan: Yes Notes (Text): 01/06/17 11:27 Patient seen at bedside with GI fellow. This is 81yo female with PMHx significant for chronic anemia with in setting of biopsy proven MDS, CHF (EF 35% ), COPD, HTN and recent finding of a questionable RUL lung lesion on prior admissions who presented from [place] with severe anemia noted on CBC. GI consulted for ? new onset ascites s/p paracentesis of 1800 ml. No fluid analysis sent. Nodular contour of liver on imaging. has low EF of 30% with imaging showing multifocal liver lesions. Metastatic vs primary ? RUL lesion not biopsied in previous admissions. Patient is acchectic and is not able to appropriately answer questions. If no aggresive treatment is sort then will do symptomatic treatment. BP low today hence will hold off on diuretics. Low sodium diet and transfuse as needed. On contact isolation for E coli bacteremia- likely source urine. Will hold off on PPI due to ascites and high risk of SBP
[2017-01-06] MEDS: Fluticasone-Salmeterol 250-50mcg Diskus INH SCH ×2 (08:28→20:17)
[2017-01-06] MEDS: MethylPREDNISolone 40 mg Vial IVP SCH ×2 (09:48→22:05)
[2017-01-06] MEDS: Mupirocin 2% Ointment (NASAL) NAS SCH ×2 (09:49→18:02)
[2017-01-06 11:15] LABS: INR 1.6
[2017-01-06 11:17] LABS: BASO # 0.1 K/uL (0.0-0.2); BASO % 1.5 % (0.0-2.0); LYMPH # 0.3 K/uL (1.0-4.3); LYMPH % 4.1 % (20.0-40.0); MEAN CORPUSCULAR HEMOGLOBIN 31.6 pg (27.0-31.0); MEAN CORPUSCULAR HGB CONC 33.1 g/dL (33.0-37.0); MEAN PLATELET VOLUME 11.3 fL (7.2-11.7); MONO # 0.5 K/uL (0.0-0.8); MONO % 6.5 % (0.0-10.0); PLATELET COUNT 139 K/uL (130-400); RED CELL DISTRIBUTION WIDTH 16.3 % (11.5-14.5); WHITE BLOOD COUNT 7.6 K/uL (4.8-10.8)
[2017-01-06 11:20] LABS: MEAN CELL VOLUME 95.4 fL (81.0-99.0)
[2017-01-06 11:21] LABS: CHLORIDE 106 mmol/L (98-107)
[2017-01-06 11:22] LABS: POTASSIUM 5.3 mmol/L (3.6-5.2); SODIUM 137 mmol/L (132-148)
[2017-01-06 11:24] LABS: BILIRUBIN,TOTAL 1.9 mg/dL (0.2-1.3); CARBON DIOXIDE 24 mmol/L (22-30); GFR AFRICAN-AMERICAN > 60
[2017-01-06 11:25] LABS: ALB/GLOB RATIO 0.6 (1.0-2.1); ALKALINE PHOSPHATASE 59 U/L (38-126); ALT/SGPT 19 U/L (9-52); AST/SGOT 19 U/L (14-36); BLOOD UREA NITROGEN 49 mg/dL (7-17); CALCIUM 7.3 mg/dl (8.6-10.4); GLUCOSE,RANDOM 161 mg/dL (65-105); TOTAL PROTEIN 6.1 g/dL (6.3-8.3)
[2017-01-06 11:52] LABS: NEUTROPHIL 85 % (50-75); TOTAL CELLS COUNTED 100
[2017-01-06 11:53] LABS: LARGE PLATELETS PRESENT
--- NOTE | 2017-01-06 13:17 | CP.PCM.PN ---
Subjective - Date & Time of Evaluation Date of Evaluation: 01/06/17 Time of Evaluation: 11:00 - Subjective Subjective: pt. is improving PT.has pain but dont want any more blood work Objective - Vital Signs/Intake and Output Vital Signs (last 24 hours): Temp Pulse Resp BP Pulse Ox 99 F 104 H 20 99/64 L 97 01/06/17 07:25 01/06/17 07:30 01/06/17 07:25 01/06/17 07:25 01/06/17 07:25 Intake and Output: 01/06/17 01/06/17 06:59 18:59 Intake Total 400 Output Total 700 Balance -300 - Medications Medications: Current Medications Acetaminophen (Tylenol 325mg Tab) 650 mg PO Q6 PRN PRN Reason: Pain, moderate (4-7) Last Admin: 01/05/17 09:44 Dose: 650 mg Albuterol/Ipratropium (Duoneb 3 Mg/0.5 Mg (3 Ml) Ud) 3 ml INH RQ6 REBECCA Last Admin: 01/06/17 08:28 Dose: 3 ml Guaifenesin (Robitussin) 100 mg PO Q4H PRN PRN Reason: Cough Last Admin: 01/05/17 12:02 Dose: 100 mg Tigecycline 50 mg/ Sodium (Chloride) 100 mls @ 100 mls/hr IV Q12H REBECCA Last Admin: 01/06/17 11:00 Dose: 100 mls/hr Methylprednisolone (Solu-Medrol) 40 mg IVP Q12 REBECCA Last Admin: 01/06/17 09:48 Dose: 40 mg Mupirocin (Bactroban 2% Nasal) 0.5 gm JENNIFER BID REBECCA Last Admin: 01/06/17 09:49 Dose: 0.5 gm Fluticasone/Salmeterol (Advair Diskus 250/50) 1 puff INH RQ12 REBECCA Last Admin: 01/06/17 08:28 Dose: 1 puff - Labs Labs: 01/06/17 10:58 01/06/17 10:58 PT 18.7 SECONDS (9.7-12.2) H 01/06/17 10:58 INR 1.6 01/06/17 10:58 APTT 50 SECONDS (21-34) H 01/03/17 11:24 - Constitutional Appears: Well - Head Exam Head Exam: ATRAUMATIC, NORMAL INSPECTION, NORMOCEPHALIC - Eye Exam Eye Exam: EOMI, Normal appearance, PERRL Pupil Exam: NORMAL ACCOMODATION, PERRL - ENT Exam ENT Exam: Mucous Membranes Moist, Normal Exam - Neck Exam Neck Exam: Full ROM, Normal Inspection. absent: Lymphadenopathy - Respiratory Exam Respiratory Exam: Decreased Breath Sounds - Cardiovascular Exam Cardiovascular Exam: REGULAR RHYTHM, +S1, +S2 - GI/Abdominal Exam GI & Abdominal Exam: Soft, Diminished Bowel Sounds - Rectal Exam Rectal Exam: Deferred Assessment and Plan - Assessment and Plan (Free Text) Plan: Dr. jamilah medina continue meds as ordered f/u labs
--- NOTE | 2017-01-06 13:22 | CP.PCM.PN ---
Subjective - Date & Time of Evaluation Date of Evaluation: 01/06/17 Time of Evaluation: 11:15 - Subjective Subjective: Patient was seen and examined at bedside, no acute distress, no acute events overnight. The patient was resting but was arousable and able to answer questions, pt was cooperative. The patient reports that her breathing is much better today. Pt currently denies fever, chills, nausea, vomiting, cough, headache, chest pain, palpitations, dyspnea, edema at this time. Objective - Vital Signs/Intake and Output Vital Signs (last 24 hours): Temp Pulse Resp BP Pulse Ox 99 F 104 H 20 99/64 L 97 01/06/17 07:25 01/06/17 07:30 01/06/17 07:25 01/06/17 07:25 01/06/17 07:25 Intake and Output: 01/06/17 01/06/17 06:59 18:59 Intake Total 400 Output Total 700 Balance -300 - Medications Medications: Current Medications Acetaminophen (Tylenol 325mg Tab) 650 mg PO Q6 PRN PRN Reason: Pain, moderate (4-7) Last Admin: 01/05/17 09:44 Dose: 650 mg Albuterol/Ipratropium (Duoneb 3 Mg/0.5 Mg (3 Ml) Ud) 3 ml INH RQ6 REBECCA Last Admin: 01/06/17 08:28 Dose: 3 ml Guaifenesin (Robitussin) 100 mg PO Q4H PRN PRN Reason: Cough Last Admin: 01/05/17 12:02 Dose: 100 mg Tigecycline 50 mg/ Sodium (Chloride) 100 mls @ 100 mls/hr IV Q12H REBECCA Last Admin: 01/06/17 11:00 Dose: 100 mls/hr Methylprednisolone (Solu-Medrol) 40 mg IVP Q12 REBECCA Last Admin: 01/06/17 09:48 Dose: 40 mg Mupirocin (Bactroban 2% Nasal) 0.5 gm JENNIFER BID REBECCA Last Admin: 01/06/17 09:49 Dose: 0.5 gm Fluticasone/Salmeterol (Advair Diskus 250/50) 1 puff INH RQ12 REBECCA Last Admin: 01/06/17 08:28 Dose: 1 puff - Labs Labs: 01/06/17 10:58 01/06/17 10:58 PT 18.7 SECONDS (9.7-12.2) H 01/06/17 10:58 INR 1.6 01/06/17 10:58 APTT 50 SECONDS (21-34) H 01/03/17 11:24 - Constitutional Appears: Well, Non-toxic, No Acute Distress - Head Exam Head Exam: ATRAUMATIC, NORMAL INSPECTION - Eye Exam Eye Exam: EOMI, Normal appearance - ENT Exam ENT Exam: Normal Exam - Neck Exam Neck Exam: Normal Inspection - Respiratory Exam Respiratory Exam: Decreased Breath Sounds, NORMAL BREATHING PATTERN. absent: Rhonchi, Wheezes - Cardiovascular Exam Cardiovascular Exam: +S1, +S2 - Neurological Exam Neurological Exam: Alert, Awake, Oriented x3 - Skin Skin Exam: Dry, Normal Color, Warm Assessment and Plan (1) Pneumonia Assessment & Plan: Patient is improving continue Abx continue breathing treatments continue steroids Status: Acute (2) Anemia Status: Acute (3) Lung mass Status: Acute
--- NOTE | 2017-01-06 14:41 | PCM.PSYCH ---
Initial Psychiatric Evaluation - Initial Psychiatric Evaluation Type of Admission: Voluntary Legal Status: Capacity Chief Complaint (in patient's own words): "I dont know" History of Present Illness and Precipitating Events: Pt is a 81 yo F who lives in a longterm, has one son. Pt was admitted for anemia on 12/30/16 and psychiatric consult was requested to assess medical decision making capacity. As per pt's nurse, pt has been slightly confused since admission. Pt has been refusing blood transfusions and blood work. Pt does not have an advanced directive, living will, DNR/DNI. Patient's son reportedly lives in [facility] and has minimal contact with the patient. Pt states her sister lives in [place] and helps her with IADL's. Efforts were made to call the family members, however neither were able to be reached at this time. Pt states she is anxious about her medical issues and feels her condition is not improving however, states "I do not want any more blood tests." Pt admits to visual and auditory hallucinations that began approximately one month ago, however unable to provide further detail. Pt complains of poor sleep, poor appetite and decreased energy. Pt Denies feeling depressed, suicidal ideation, homicidal ideation. Denies alcohol, tobacco and illicit drug use. At the time of exam, pt's level of consciousness waxes and wanes between AAOx1( person) and AAOx2 (person, place). Pt is anxious, speech is disorganized. Noted to be persistently biting her nails, moaning and tearful at times. Pt with with 3/3 registration, 0/3 recall. Psych Hx: denies. Denies previous psychiatric inpatient admission. Family Psych Hx: Denies PMHx: Anemia, pneumonia, HTN, ischemic heart disease, angina pectoralis, atrial fibrillation, COPD Meds: unobtainable Current Medications: Active Medications Generic Name Dose Route Start Last Admin Trade Name Freq PRN Reason Stop Dose Admin Acetaminophen 650 mg 12/31/16 08:53 01/05/17 09:44 Tylenol 325mg Tab PO 650 mg Q6 PRN Administration Pain, moderate (4-7) Albuterol/Ipratropium 3 ml 12/30/16 14:00 01/06/17 08:28 Duoneb 3 Mg/0.5 Mg (3 Ml) Ud INH 3 ml RQ6 REBECCA Administration Guaifenesin 100 mg 12/30/16 11:04 01/05/17 12:02 Robitussin PO 100 mg Q4H PRN Administration Cough Tigecycline 50 mg/ Sodium 100 mls @ 100 mls/hr 01/03/17 23:00 01/06/17 11:00 Chloride IV 100 mls/hr Q12H REBECCA Administration Methylprednisolone 40 mg 01/04/17 10:00 01/06/17 09:48 Solu-Medrol IVP 40 mg Q12 REBECCA Administration Mupirocin 0.5 gm 01/01/17 10:00 01/06/17 09:49 Bactroban 2% Nasal JENNIFER 0.5 gm BID REBECCA Administration Fluticasone/Salmeterol 1 puff 01/02/17 08:00 01/06/17 08:28 Advair Diskus 250/50 INH 1 puff RQ12 REBECCA Administration Past Psychiatric History - Past Psychiatric History Previous Treatment History: None Pertinent Medical Hx (Current Medical&Sleep Prob, Allergies): Allergies Allergy/AdvReac Type Severity Reaction Status Date / Time aspirin Allergy Verified 11/21/16 02:08 ciprofloxacin [From Cipro] Allergy Verified 11/21/16 02:08 ciprofloxacin HCl Allergy Verified 11/21/16 02:08 [From Cipro] Penicillins Allergy Verified 11/21/16 02:08 cefepime AdvReac Unknown ARRHYTHMIA Verified 11/21/16 02:08 hydroCHLOROthiazide [Microzide] 12.5 mg PO DAILY cap 10/16/16 Acetaminophen [Tylenol 325mg tab] 650 mg PO Q6 PRN #0 tab 12/02/16 Albuterol/Ipratropium [Duoneb 3 mg/0.5 mg (3 ml) UD] 3 ml INH RQ6 neb 12/02/16 Budesonide [Pulmicort Respules] 0.5 mg INH RQ12 neb 12/02/16 Folic Acid 1 mg PO DAILY tab 12/02/16 Furosemide [Lasix] 20 mg PO DAILY tab 12/02/16 Pantoprazole [Protonix EC Tab] 40 mg PO Q12H ect 12/02/16 guaiFENesin [Robitussin] 100 mg PO Q4H PRN #0 udc 12/02/16 Aluminum Hydroxide/Magnesium H [Maalox 30 ml] 30 ml PO Q4H PRN 12/29/16 Ascorbic Acid [Vitamin C] 500 mg PO DAILY 12/29/16 Escitalopram [Lexapro] 2.5 mg PO DAILY 12/29/16 Magnesium Hydroxide [Milk Of Magnesia] 30 ml PO DAILY PRN 12/29/16 Megestrol Acetate 400 mg PO DAILY 12/29/16 Zinc Oxide 30 gm TP TID 12/29/16 Review of Systems - Review of Systems All systems: reviewed and no additional remarkable complaints except Mental Status Examination - Personal Presentation Personal Presentation: Looks older than stated age - Affect Affect: Constricted - Motor Activity Motor Activity: Psychomotor Retardation - Reliability in Providing Information Reliability in Providing Information: Poor, due to alteration in thoughts, Poor , due to altered mood - Speech Speech: Disorganized - Mood Mood: Anxious - Formal Thought Process Formal Thought Process: Hallucinations, Delusions, Paranoia - Hallucinations/Delusions Hallucinations: Visual, Auditory Delusions: Persecution - Obsessions/Compulsions Obsessions: No Compulsions: No - Cognitive Functions Orientation: Person, Place Sensorium: Alert Attention/Concentration: Attentive Abstract Thinking: [place] Estimate of Intelligence: Below average Judgement: Imparied, as evidence by: Poor judgement, Imparied, as evidence by: Lack of insight into illness - Risk Risk: Diminished functioning - Limitations Limitations: Living alone DSM 5 DX - DSM 5 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 - Smoking Cessation Smoking Cessation Initiated: No
[2017-01-07] MEDS: Albuterol-Ipratrop 3 mg / 0.5 (3 ml) UD INH SCH ×4 (01:20→20:44)
[2017-01-07 06:54] LABS: CHLORIDE 107 mmol/L (98-107); POTASSIUM 5.9 mmol/L (3.6-5.2); SODIUM 138 mmol/L (132-148)
[2017-01-07 06:56] LABS: BILIRUBIN,TOTAL 2.8 mg/dL (0.2-1.3); CARBON DIOXIDE 24 mmol/L (22-30); GFR AFRICAN-AMERICAN > 60
[2017-01-07 06:57] LABS: ALB/GLOB RATIO 0.6 (1.0-2.1); ALKALINE PHOSPHATASE 53 U/L (38-126); ALT/SGPT 23 U/L (9-52); AST/SGOT 28 U/L (14-36); BLOOD UREA NITROGEN 54 mg/dL (7-17); CALCIUM 7.3 mg/dl (8.6-10.4); GLUCOSE,RANDOM 137 mg/dL (65-105); TOTAL PROTEIN 6.2 g/dL (6.3-8.3)
--- NOTE | 2017-01-07 07:34 | CP.PCM.PN ---
<Hector Simons - Last Filed: 01/07/17 08:10> Subjective - Date & Time of Evaluation Date of Evaluation: 01/07/17 Time of Evaluation: 07:15 - Subjective Subjective: PGY4 GI Fellow Progress Note Patient seen and examined bedside this morning. The patient has no complaints today and actually state she is feeling well. Denies any issues overnight. No pain at this time. 12 system ROS performed and negative except where stated. Objective - Vital Signs/Intake and Output Vital Signs (last 24 hours): Temp Pulse Resp BP Pulse Ox 97.5 F L 95 H 20 93/58 L 99 01/07/17 00:05 01/07/17 04:03 01/07/17 00:05 01/07/17 00:05 01/07/17 00:05 Intake and Output: 01/07/17 01/07/17 06:59 18:59 Intake Total 50 Output Total 650 Balance -600 - Medications Medications: Current Medications Acetaminophen (Tylenol 325mg Tab) 650 mg PO Q6 PRN PRN Reason: Pain, moderate (4-7) Last Admin: 01/05/17 09:44 Dose: 650 mg Albuterol/Ipratropium (Duoneb 3 Mg/0.5 Mg (3 Ml) Ud) 3 ml INH RQ6 REBECCA Last Admin: 01/07/17 01:20 Dose: 3 ml Guaifenesin (Robitussin) 100 mg PO Q4H PRN PRN Reason: Cough Last Admin: 01/05/17 12:02 Dose: 100 mg Tigecycline 50 mg/ Sodium (Chloride) 100 mls @ 100 mls/hr IV Q12H REBECCA Last Admin: 01/06/17 22:05 Dose: 100 mls/hr Methylprednisolone (Solu-Medrol) 40 mg IVP Q12 REBECCA Last Admin: 01/06/17 22:05 Dose: 40 mg Mupirocin (Bactroban 2% Nasal) 0.5 gm JENNIFER BID REBECCA Last Admin: 01/06/17 18:02 Dose: 0.5 gm Fluticasone/Salmeterol (Advair Diskus 250/50) 1 puff INH RQ12 REBECCA Last Admin: 01/06/17 20:17 Dose: Not Given - Labs Labs: 01/06/17 10:58 01/07/17 06:35 PT 18.7 SECONDS (9.7-12.2) H 01/06/17 10:58 INR 1.6 01/06/17 10:58 APTT 50 SECONDS (21-34) H 01/03/17 11:24 - Constitutional Appears: Non-toxic, No Acute Distress - Eye Exam Eye Exam: EOMI, PERRL - ENT Exam ENT Exam: Mucous Membranes Dry - Respiratory Exam Respiratory Exam: Clear to Ausculation Bilateral. absent: Rales, Rhonchi, Wheezes - Cardiovascular Exam Cardiovascular Exam: RRR, +S1, +S2 - GI/Abdominal Exam GI & Abdominal Exam: Distended, Soft, Normal Bowel Sounds. absent: Firm, Guarding, Rigid, Tenderness, Organomegaly - Extremities Exam Extremities Exam: Normal Inspection. absent: Pedal Edema - Neurological Exam Neurological Exam: Altered, Awake - Psychiatric Exam Psychiatric exam: Anxious, Depressed - Skin Skin Exam: Dry, Warm Assessment and Plan - Assessment and Plan (Free Text) Assessment: Patient is an 81yo female with PMHx significant for chronic anemia with suspicion for MDS (biopsy proven), CHF (EF 35%), COPD, HTN and recent finding of a questionable RUL lung lesion on prior admissions who presented from [place] with severe anemia noted on CBC. 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, improved -Nodular liver contour and ascites/cirrhosis -Liver lesions noted on triple phase CT, concern for metastatic disease (?lung primary) -Prior documented RUL lung lesion, pt refused bronchoscopy/biopsy previously -Alzheimer's dementia Plan: -Continue to transfuse as needed given h/o MDS anemia -Psychiatry has evaluated patient and deemed that she is not capable to make medical decisions; patient has son Rayshawn who is listed in the chart -Hospice/Palliative care being considered given multiple ongoing medical issues and patient's prior reluctance for aggressive care -If seeking aggressive care, patient would benefit from repeat paracentesis ( diagnostic) with evaluation of ascitic fluid to R/O SBP and determine etiology of ascites - albumin/protein/cell count/C&S/cytology -Hepatitis serologies negative -2g Na diet -Cannot tolerate diuresis given hypotension at this time -Patient has never had screening colonoscopy/endoscopy -Discontinue use of pepcid/protonix -Will follow <Will Geroge Y - Last Filed: 01/07/17 09:11> Objective - Vital Signs/Intake and Output Vital Signs (last 24 hours): Temp Pulse Resp BP Pulse Ox 97.7 F 100 H 18 82/54 L 99 01/07/17 07:22 01/07/17 07:22 01/07/17 07:22 01/07/17 07:22 01/07/17 07:22 Intake and Output: 01/07/17 01/07/17 06:59 18:59 Intake Total 50 Output Total 650 Balance -600 - Medications Medications: Current Medications Acetaminophen (Tylenol 325mg Tab) 650 mg PO Q6 PRN PRN Reason: Pain, moderate (4-7) Last Admin: 01/05/17 09:44 Dose: 650 mg Albuterol/Ipratropium (Duoneb 3 Mg/0.5 Mg (3 Ml) Ud) 3 ml INH RQ6 REBECCA Last Admin: 01/07/17 01:20 Dose: 3 ml Guaifenesin (Robitussin) 100 mg PO Q4H PRN PRN Reason: Cough Last Admin: 01/05/17 12:02 Dose: 100 mg Tigecycline 50 mg/ Sodium (Chloride) 100 mls @ 100 mls/hr IV Q12H REBECCA Last Admin: 01/06/17 22:05 Dose: 100 mls/hr Methylprednisolone (Solu-Medrol) 40 mg IVP Q12 REBECCA Last Admin: 01/06/17 22:05 Dose: 40 mg Mupirocin (Bactroban 2% Nasal) 0.5 gm JENNIFER BID REBECCA Last Admin: 01/06/17 18:02 Dose: 0.5 gm Fluticasone/Salmeterol (Advair Diskus 250/50) 1 puff INH RQ12 REBECCA Last Admin: 01/06/17 20:17 Dose: Not Given - Labs Labs: 01/06/17 10:58 01/07/17 06:35 PT 18.7 SECONDS (9.7-12.2) H 01/06/17 10:58 INR 1.6 01/06/17 10:58 APTT 50 SECONDS (21-34) H 01/03/17 11:24 Attending/Attestation - Attestation I have personally seen and examined this patient.: Yes I have fully participated in the care of the patient.: Yes I have reviewed all pertinent clinical information, including history, physical exam and plan: Yes Notes (Text): 01/07/17 09:01 I have seen and examined patient with GI fellow. No acute events overnight. She is seen resting in bed, appears emotional when questioned. There is no reported nausea, vomiting, fever/chills. She complains of lack of appetite though she is tolerating PO diet without difficulty. Review of vitals from today reveals hypotension, tachycardia. CHF COPD HTN Chronic anemia, MDS Cirrhosis with liver lesions suggestive of metastatic disease. Patient with known pulmonary lesion, untreated. Dementia, patient lacks competency for decision making as per psychiatry evaluation Sepsis, ecoli bacteremia - H/H stable, continue to monitor and transfuse as necessary - Continue with antibiotic therapy as per ID - Given ongoing hypotension and sepsis, would suggest repeat diagnostic paracentesis for further evaluation of potential SBP. Prior ascitic fluid sample was discarded by laboratory. - Low sodium diet as tolerated - Due to likely underlying malignancy and prior refusal of patient to undergo further workup, hospice/palliative care evaluation is certainly reasonable in this situation. Will continue to monitor patient clinical course and follow up recommendations.
[2017-01-07] MEDS: Fluticasone-Salmeterol 250-50mcg Diskus INH SCH ×3 (09:07→20:44)
[2017-01-07] MEDS: MethylPREDNISolone 40 mg Vial IVP SCH ×2 (10:10→22:26)
[2017-01-07] MEDS: Mupirocin 2% Ointment (NASAL) NAS SCH ×2 (10:11→17:33)
--- NOTE | 2017-01-07 11:00 | CP.PCM.PN ---
Subjective - Date & Time of Evaluation Date of Evaluation: 01/07/17 Time of Evaluation: 11:40 - Subjective Subjective: clinically same Objective - Vital Signs/Intake and Output Vital Signs (last 24 hours): Temp Pulse Resp BP Pulse Ox 97.7 F 100 H 18 82/54 L 99 01/07/17 07:22 01/07/17 07:22 01/07/17 07:22 01/07/17 07:22 01/07/17 07:22 Intake and Output: 01/07/17 01/07/17 06:59 18:59 Intake Total 50 Output Total 650 Balance -600 - Medications Medications: Current Medications Acetaminophen (Tylenol 325mg Tab) 650 mg PO Q6 PRN PRN Reason: Pain, moderate (4-7) Last Admin: 01/05/17 09:44 Dose: 650 mg Albuterol/Ipratropium (Duoneb 3 Mg/0.5 Mg (3 Ml) Ud) 3 ml INH RQ6 REBECCA Last Admin: 01/07/17 09:06 Dose: 3 ml Guaifenesin (Robitussin) 100 mg PO Q4H PRN PRN Reason: Cough Last Admin: 01/05/17 12:02 Dose: 100 mg Tigecycline 50 mg/ Sodium (Chloride) 100 mls @ 100 mls/hr IV Q12H REBECCA Last Admin: 01/07/17 10:16 Dose: 100 mls/hr Methylprednisolone (Solu-Medrol) 40 mg IVP Q12 REEBCCA Last Admin: 01/07/17 10:10 Dose: 40 mg Mupirocin (Bactroban 2% Nasal) 0.5 gm JENNIFER BID REBECCA Last Admin: 01/07/17 10:11 Dose: 0.5 gm Fluticasone/Salmeterol (Advair Diskus 250/50) 1 puff INH RQ12 REBECCA Last Admin: 01/07/17 09:19 Dose: 1 puff - Labs Labs: 01/06/17 10:58 01/07/17 06:35 PT 18.7 SECONDS (9.7-12.2) H 01/06/17 10:58 INR 1.6 01/06/17 10:58 APTT 50 SECONDS (21-34) H 01/03/17 11:24 - Constitutional Appears: Well - Head Exam Head Exam: ATRAUMATIC, NORMAL INSPECTION, NORMOCEPHALIC - Eye Exam Eye Exam: EOMI, Normal appearance, PERRL Pupil Exam: NORMAL ACCOMODATION, PERRL - ENT Exam ENT Exam: Mucous Membranes Moist, Normal Exam - Neck Exam Neck Exam: Full ROM, Normal Inspection. absent: Lymphadenopathy - Respiratory Exam Respiratory Exam: Decreased Breath Sounds - Cardiovascular Exam Cardiovascular Exam: REGULAR RHYTHM, +S1, +S2 - GI/Abdominal Exam GI & Abdominal Exam: Soft, Diminished Bowel Sounds - Rectal Exam Rectal Exam: Deferred Assessment and Plan - Assessment and Plan (Free Text) Plan: DR. Hira David continue meds as ordered hb monitoring f/u labs
--- NOTE | 2017-01-07 14:02 | CP.PCM.PN ---
Subjective - Date & Time of Evaluation Date of Evaluation: 01/07/17 Time of Evaluation: 13:35 - Subjective Subjective: Patient was seen and examined at bedside, no acute distress, no acute events overnight. The patient was resting comfortably in bed eating lunch, patient is alert with more energy today than she has in the last few days. The patient reported an improvement in breathing function and with less shortness of breath. the Patient currently denies chest pain, palpitations, nausea, vomiting , fever, chills, headache, edema, cough, nasal congestion. Objective - Vital Signs/Intake and Output Vital Signs (last 24 hours): Temp Pulse Resp BP Pulse Ox 97.7 F 100 H 18 82/54 L 99 01/07/17 07:22 01/07/17 07:22 01/07/17 07:22 01/07/17 07:22 01/07/17 07:22 Intake and Output: 01/07/17 01/07/17 06:59 18:59 Intake Total 50 Output Total 650 Balance -600 - Medications Medications: Current Medications Acetaminophen (Tylenol 325mg Tab) 650 mg PO Q6 PRN PRN Reason: Pain, moderate (4-7) Last Admin: 01/05/17 09:44 Dose: 650 mg Albuterol/Ipratropium (Duoneb 3 Mg/0.5 Mg (3 Ml) Ud) 3 ml INH RQ6 REBECCA Last Admin: 01/07/17 13:51 Dose: 3 ml Guaifenesin (Robitussin) 100 mg PO Q4H PRN PRN Reason: Cough Last Admin: 01/05/17 12:02 Dose: 100 mg Tigecycline 50 mg/ Sodium (Chloride) 100 mls @ 100 mls/hr IV Q12H REBECCA Last Admin: 01/07/17 10:16 Dose: 100 mls/hr Methylprednisolone (Solu-Medrol) 40 mg IVP Q12 REBECCA Last Admin: 01/07/17 10:10 Dose: 40 mg Mupirocin (Bactroban 2% Nasal) 0.5 gm JENNIFER BID REBECCA Last Admin: 01/07/17 10:11 Dose: 0.5 gm Fluticasone/Salmeterol (Advair Diskus 250/50) 1 puff INH RQ12 REBECCA Last Admin: 01/07/17 09:19 Dose: 1 puff - Labs Labs: 01/06/17 10:58 01/07/17 06:35 PT 18.7 SECONDS (9.7-12.2) H 01/06/17 10:58 INR 1.6 01/06/17 10:58 APTT 50 SECONDS (21-34) H 01/03/17 11:24 - Constitutional Appears: Well, Non-toxic, No Acute Distress - Head Exam Head Exam: ATRAUMATIC, NORMAL INSPECTION - Eye Exam Eye Exam: EOMI, Normal appearance - ENT Exam ENT Exam: Mucous Membranes Moist, Normal Exam - Respiratory Exam Respiratory Exam: Wheezes (mild) - Cardiovascular Exam Cardiovascular Exam: REGULAR RHYTHM, +S1, +S2 - Neurological Exam Neurological Exam: Alert, Awake, Oriented x3 - Skin Skin Exam: Dry, Normal Color, Warm Assessment and Plan (1) Pneumonia Assessment & Plan: -patient is improving -continue abx -continue steroids Status: Acute (2) Anemia Status: Acute (3) Lung mass Status: Acute
[2017-01-08] MEDS: Albuterol-Ipratrop 3 mg / 0.5 (3 ml) UD INH SCH ×4 (01:43→19:52)
[2017-01-08] MEDS: Mupirocin 2% Ointment (NASAL) NAS SCH ×2 (10:25→18:15)
[2017-01-08] MEDS: MethylPREDNISolone 40 mg Vial IVP SCH ×2 (10:25→22:17)
[2017-01-08] MEDS: Fluticasone-Salmeterol 250-50mcg Diskus INH SCH ×2 (10:42→19:52)
--- NOTE | 2017-01-08 10:46 | CP.PCM.PN ---
Subjective - Date & Time of Evaluation Date of Evaluation: 01/08/17 Time of Evaluation: 10:00 - Subjective Subjective: Dr. Craig Herrera service: Patient is seen in room. She has no complaints of pain, has very little appetite for eating. Says she is depressed because she cannot get ahold of her grandson who she says lives in [place] and is in the army. Objective - Vital Signs/Intake and Output Vital Signs (last 24 hours): Temp Pulse Resp BP Pulse Ox 96.7 F L 96 H 20 80/53 L 99 01/08/17 07:00 01/08/17 07:00 01/08/17 07:00 01/08/17 07:00 01/08/17 07:00 Intake and Output: 01/08/17 01/08/17 06:59 18:59 Intake Total 250 Output Total 400 Balance -150 - Medications Medications: Current Medications Acetaminophen (Tylenol 325mg Tab) 650 mg PO Q6 PRN PRN Reason: Pain, moderate (4-7) Last Admin: 01/05/17 09:44 Dose: 650 mg Albuterol/Ipratropium (Duoneb 3 Mg/0.5 Mg (3 Ml) Ud) 3 ml INH RQ6 REBECCA Last Admin: 01/08/17 07:45 Dose: 3 ml Guaifenesin (Robitussin) 100 mg PO Q4H PRN PRN Reason: Cough Last Admin: 01/05/17 12:02 Dose: 100 mg Tigecycline 50 mg/ Sodium (Chloride) 100 mls @ 100 mls/hr IV Q12H REBECCA Last Admin: 01/08/17 10:24 Dose: 100 mls/hr Methylprednisolone (Solu-Medrol) 40 mg IVP Q12 REBECCA Last Admin: 01/08/17 10:25 Dose: 40 mg Mupirocin (Bactroban 2% Nasal) 0.5 gm JENNIFER BID REBECCA Last Admin: 01/08/17 10:25 Dose: 0.5 gm Fluticasone/Salmeterol (Advair Diskus 250/50) 1 puff INH RQ12 REBECCA Last Admin: 01/08/17 10:42 Dose: Not Given - Labs Labs: 01/06/17 10:58 01/07/17 06:35 PT 18.7 SECONDS (9.7-12.2) H 01/06/17 10:58 INR 1.6 01/06/17 10:58 APTT 50 SECONDS (21-34) H 01/03/17 11:24 - Constitutional Appears: Agitated, Confused, Cachectic, Chronically Ill - Head Exam Head Exam: NORMAL INSPECTION - Eye Exam Eye Exam: Normal appearance Pupil Exam: NORMAL ACCOMODATION - Respiratory Exam Respiratory Exam: Clear to Ausculation Bilateral. absent: Rhonchi, Wheezes - GI/Abdominal Exam GI & Abdominal Exam: Soft, Normal Bowel Sounds. absent: Tenderness - Extremities Exam Extremities Exam: Normal Inspection - Back Exam Back Exam: NORMAL INSPECTION - Neurological Exam Neurological Exam: Alert. absent: Oriented x3 - Psychiatric Exam Psychiatric exam: Agitated, Depressed - Skin Skin Exam: Pallor Assessment and Plan - Assessment and Plan (Free Text) Assessment: Assessment: 01/07: Psych evaluation per Dr. Hua that patient is unable to make her medication decisions. Spoke to the sister at length about hospice care. 01/06: Unable to contact family, Psych consult to determine patient's ability to make medical decisions. Previous note Patient is now DNR/DNI signed paper work is in the chart Baceremia Patient has gram negative rods, Tigacyle ordered per Dr. David, have ordered UA with urine culture. She has a upper lobe consolidation on the right isde, Dr. Iniguez consulted. Coagulopathy This could be DIV vs nutritional vs liver disease vas possibly metistatic disease. Spoke with Dr. Meier heme/onc consult. She has a possible right upper lobe mass but patient has refused bronchoscopy per Dr. Iniguez's note Anemia 01/03: Hbg 7.0, transfused 2 units, with 20 of Lasix after of given after the 1st tranfusion. 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 Consult Pulm- Dr. Iniguez Continue Azithromycin 500mg IVPB Daily CXR- 12/30/16- Worsening dense opacification seen within the right upper to mid lung zone as well as the left lung base with associated small to moderate left pleural effusion. Additional milder patchy consolidative changes at the right luing base and left hilar region. Diffuse increased interstitial markings with scattered nodules/ nodularity throughout both lungs CXR- 01/01/17- No significant interval change in RUL consolidation. Persistent cardiomegaly and pulmonary venous congestion. Suspect small left pleural effusion Duoneb Q6h PRN Solumedrol Q6h PRN Guaifenesin 100mg PO Q4h PRN ADvair 250/50mcg 1 puff INH Q12h REBECCA Liver abnormalities 01/03: Hepatitis panel negative, parcentesis yesterday removed 1800 cc straw colored fluid, follow up studies. CT of liver shows multiple hypodense lesions, see emr for full report. Dr. George consulted. Consult GI- Dr. George Abdominal CT- large abdominal and pelvic ascites. Anasarca. Moderate bilateral pleural effusions, consolidations and fibrosis. Nodular hepatic contour, may be cirrhosis. Indetermine 1.0cm left hepatic lobe and 1.1cm right inferior hepatic hypodense lesion. 7mm hypodensity within the anterior left hepatic lobe. Liver CT done- pending read Scheduled for IR paracentesis- f/u fluid studies Hx of CHF Previous ECHO 09/25/16: per Dr. Drake on last admission, Global Hypokenesis and LV dysfunction; EF 35%, Stage II diastolic dysfunction; No significant valve lesions Prophylactic Measure Protonix 40mg PO Daily SCDs
--- NOTE | 2017-01-08 11:18 | CP.PCM.PN ---
Subjective - Date & Time of Evaluation Date of Evaluation: 01/08/17 Time of Evaluation: 09:50 - Subjective Subjective: Patient seen and examined at bedside, no acute distress, no acute events overnight. Pt reports improvement in breathing and appetite. Pt currently denies nausea, vomiting, fever, chills, headache, chest pain, edema, wheezes at this time. Objective - Vital Signs/Intake and Output Vital Signs (last 24 hours): Temp Pulse Resp BP Pulse Ox 96.7 F L 96 H 20 80/53 L 99 01/08/17 07:00 01/08/17 07:00 01/08/17 07:00 01/08/17 07:00 01/08/17 07:00 Intake and Output: 01/08/17 01/08/17 06:59 18:59 Intake Total 250 Output Total 400 Balance -150 - Medications Medications: Current Medications Acetaminophen (Tylenol 325mg Tab) 650 mg PO Q6 PRN PRN Reason: Pain, moderate (4-7) Last Admin: 01/05/17 09:44 Dose: 650 mg Albuterol/Ipratropium (Duoneb 3 Mg/0.5 Mg (3 Ml) Ud) 3 ml INH RQ6 REBECCA Last Admin: 01/08/17 07:45 Dose: 3 ml Guaifenesin (Robitussin) 100 mg PO Q4H PRN PRN Reason: Cough Last Admin: 01/05/17 12:02 Dose: 100 mg Tigecycline 50 mg/ Sodium (Chloride) 100 mls @ 100 mls/hr IV Q12H REBECCA Last Admin: 01/08/17 10:24 Dose: 100 mls/hr Methylprednisolone (Solu-Medrol) 40 mg IVP Q12 REBECCA Last Admin: 01/08/17 10:25 Dose: 40 mg Mupirocin (Bactroban 2% Nasal) 0.5 gm JENNIFER BID REBECCA Last Admin: 01/08/17 10:25 Dose: 0.5 gm Fluticasone/Salmeterol (Advair Diskus 250/50) 1 puff INH RQ12 REBECCA Last Admin: 01/08/17 10:42 Dose: Not Given - Labs Labs: 01/06/17 10:58 01/07/17 06:35 PT 18.7 SECONDS (9.7-12.2) H 01/06/17 10:58 INR 1.6 04/17/17 10:58 APTT 50 SECONDS (21-34) H 01/03/17 11:24 - Constitutional Appears: Well, Non-toxic, No Acute Distress - Head Exam Head Exam: ATRAUMATIC, NORMAL INSPECTION - Eye Exam Eye Exam: EOMI, Normal appearance - ENT Exam ENT Exam: Normal Exam - Neck Exam Neck Exam: Normal Inspection - Respiratory Exam Respiratory Exam: Clear to Ausculation Bilateral, NORMAL BREATHING PATTERN - Cardiovascular Exam Cardiovascular Exam: REGULAR RHYTHM, +S1, +S2 - Neurological Exam Neurological Exam: Alert, Awake, Oriented x3 - Skin Skin Exam: Dry, Normal Color, Warm Assessment and Plan (1) Pneumonia Assessment & Plan: -Patient stable from pulmonary standpoint, will sign off -continue recommendations by medicine team -Please reconsult as necessary Status: Acute (2) Anemia Status: Acute (3) Lung mass Status: Acute
[2017-01-08 11:21] LABS: BASO % 0.1 % (0.0-2.0); HEMATOCRIT 26.1 % (34.0-47.0); LYMPH # 0.4 K/uL (1.0-4.3); LYMPH % 8.2 % (20.0-40.0); MEAN CELL VOLUME 96.2 fL (81.0-99.0); MEAN CORPUSCULAR HEMOGLOBIN 31.1 pg (27.0-31.0); MEAN CORPUSCULAR HGB CONC 32.3 g/dL (33.0-37.0); MEAN PLATELET VOLUME 11.6 fL (7.2-11.7); MONO # 0.4 K/uL (0.0-0.8); MONO % 8.3 % (0.0-10.0); NRBC % 0.2 % (0.0-2.0); PLATELET COUNT 149 K/uL (130-400); RED CELL DISTRIBUTION WIDTH 16.3 % (11.5-14.5); WHITE BLOOD COUNT 5.3 K/uL (4.8-10.8)
--- NOTE | 2017-01-08 11:22 | CP.PCM.PN ---
<Hector Simons - Last Filed: 01/08/17 12:53> Subjective - Date & Time of Evaluation Date of Evaluation: 01/08/17 Time of Evaluation: 09:45 - Subjective Subjective: PGY4 GI Fellow Progress Note Patient seen and examined bedside this morning. The patient remains emotionally labile, quick to tears. She denies any complaints and continues to state she is feeling better. Discussed case with primary service. Patient still has no clear guardian as her sister is unwilling/unable to make medical decisions for her. Her son has not been reached and apparently does not live in the [facility]. 12 system ROS performed and negative except where stated. Objective - Vital Signs/Intake and Output Vital Signs (last 24 hours): Temp Pulse Resp BP Pulse Ox 96.7 F L 96 H 20 80/53 L 99 01/08/17 07:00 01/08/17 07:00 01/08/17 07:00 01/08/17 07:00 01/08/17 07:00 Intake and Output: 01/08/17 01/08/17 06:59 18:59 Intake Total 250 Output Total 400 Balance -150 - Medications Medications: Current Medications Acetaminophen (Tylenol 325mg Tab) 650 mg PO Q6 PRN PRN Reason: Pain, moderate (4-7) Last Admin: 01/05/17 09:44 Dose: 650 mg Albuterol/Ipratropium (Duoneb 3 Mg/0.5 Mg (3 Ml) Ud) 3 ml INH RQ6 REBECCA Last Admin: 01/08/17 07:45 Dose: 3 ml Guaifenesin (Robitussin) 100 mg PO Q4H PRN PRN Reason: Cough Last Admin: 01/05/17 12:02 Dose: 100 mg Tigecycline 50 mg/ Sodium (Chloride) 100 mls @ 100 mls/hr IV Q12H REBECCA Last Admin: 01/08/17 10:24 Dose: 100 mls/hr Methylprednisolone (Solu-Medrol) 40 mg IVP Q12 REBECCA Last Admin: 01/08/17 10:25 Dose: 40 mg Mupirocin (Bactroban 2% Nasal) 0.5 gm JENNIFER BID REBECCA Last Admin: 01/08/17 10:25 Dose: 0.5 gm Fluticasone/Salmeterol (Advair Diskus 250/50) 1 puff INH RQ12 REBECCA Last Admin: 01/08/17 10:42 Dose: Not Given - Labs Labs: 01/06/17 10:58 01/07/17 06:35 PT 18.7 SECONDS (9.7-12.2) H 01/06/17 10:58 INR 1.6 01/06/17 10:58 APTT 50 SECONDS (21-34) H 01/03/17 11:24 - Constitutional Appears: Non-toxic, No Acute Distress, Confused - Eye Exam Eye Exam: EOMI, PERRL - ENT Exam ENT Exam: Mucous Membranes Dry - Respiratory Exam Respiratory Exam: Clear to Ausculation Bilateral. absent: Rales, Rhonchi, Wheezes - Cardiovascular Exam Cardiovascular Exam: RRR, +S1, +S2, Murmur - GI/Abdominal Exam GI & Abdominal Exam: Distended, Soft, Normal Bowel Sounds. absent: Firm, Guarding, Rigid, Tenderness, Organomegaly - Extremities Exam Extremities Exam: Normal Inspection. absent: Pedal Edema - Neurological Exam Neurological Exam: Altered, Awake. absent: Oriented x3 - Psychiatric Exam Psychiatric exam: Anxious, Depressed - Skin Skin Exam: Dry, Warm Assessment and Plan - Assessment and Plan (Free Text) Assessment: Patient is an 81yo female with PMHx significant for chronic anemia with suspicion for MDS (biopsy proven), CHF (EF 35%), COPD, HTN and recent finding of a questionable RUL lung lesion on prior admissions who presented from [place] with severe anemia noted on CBC. 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, improved -Nodular liver contour and ascites/cirrhosis -Liver lesions noted on triple phase CT, concern for metastatic disease (?lung primary) -Prior documented RUL lung lesion, pt refused bronchoscopy/biopsy previously -Alzheimer's dementia Plan: -Spoke with patient and the patient's sister whom is at bedside regarding paracentesis; they do not wish to pursue this or endoscopy -Patient still on tigacycline -May benefit from empiric coverage for SBP - can discuss with ID -Continue to transfuse as needed given h/o MDS anemia -Hepatitis serologies negative -2g Na diet -Cannot tolerate diuresis, persistent hypotension -Ethics/Social service consultations appreciated -No further recommendations. If patient/surrogate change mind in wanting more invasive/aggressive management, please reconsult. <Francisco Benjamin - Last Filed: 01/08/17 15:14> Objective - Vital Signs/Intake and Output Vital Signs (last 24 hours): Temp Pulse Resp BP Pulse Ox 96.7 F L 110 H 20 103/73 99 01/08/17 07:00 01/08/17 13:26 01/08/17 07:00 01/08/17 13:26 01/08/17 13:26 Intake and Output: 01/08/17 01/08/17 06:59 18:59 Intake Total 250 Output Total 400 Balance -150 - Medications Medications: Current Medications Acetaminophen (Tylenol 325mg Tab) 650 mg PO Q6 PRN PRN Reason: Pain, moderate (4-7) Last Admin: 01/05/17 09:44 Dose: 650 mg Albuterol/Ipratropium (Duoneb 3 Mg/0.5 Mg (3 Ml) Ud) 3 ml INH RQ6 REBECCA Last Admin: 01/08/17 13:29 Dose: 3 ml Guaifenesin (Robitussin) 100 mg PO Q4H PRN PRN Reason: Cough Last Admin: 01/05/17 12:02 Dose: 100 mg Tigecycline 50 mg/ Sodium (Chloride) 100 mls @ 100 mls/hr IV Q12H REBECCA Last Admin: 01/08/17 10:24 Dose: 100 mls/hr Methylprednisolone (Solu-Medrol) 40 mg IVP Q12 REBECCA Last Admin: 01/08/17 10:25 Dose: 40 mg Mupirocin (Bactroban 2% Nasal) 0.5 gm JENNIFER BID REBECCA Last Admin: 01/08/17 10:25 Dose: 0.5 gm Fluticasone/Salmeterol (Advair Diskus 250/50) 1 puff INH RQ12 REBECCA Last Admin: 01/08/17 10:42 Dose: Not Given Sertraline HCl (Zoloft) 25 mg PO DAILY REBECCA - Labs Labs: 01/08/17 11:15 01/08/17 11:15 PT 18.7 SECONDS (9.7-12.2) H 01/06/17 10:58 INR 1.6 01/06/17 10:58 APTT 50 SECONDS (21-34) H 01/03/17 11:24 Attending/Attestation - Attestation I have personally seen and examined this patient.: Yes I have fully participated in the care of the patient.: Yes I have reviewed all pertinent clinical information, including history, physical exam and plan: Yes Notes (Text): Patient seen and examined with GI fellow. Agree with his note as documented above with the following additions/exceptions. This is an 81yo female with h/o chronic anemia, MDS, CHF (EF 35%), HTN, who is [facility] with anemia and ascites. She is s/p paracentesis (no fluid for analysis sent). She is refusing further invasive testing. She has blood culture with ESBL E coli. Liver CT showing liver lesions/nodular liver consistent with possible cirrhosis. She would benefit from endoscopic evaluation of anemia as well as repeat paracentesis for fluid analysis, r/o SBP and possible liver biopsy, however she is declining any further invasive testing. Her H/H is stable without any overt GI blood loss. Monitor LFTs, H/H. Continue antibiotic therapy as per primary team. Recommend continued supportive care/goals of care discussion with family. If agreeable to more invasive procedures, please reconsult. 01/08/17 15:08
[2017-01-08 11:33] LABS: CHLORIDE 108 mmol/L (98-107)
[2017-01-08 11:34] LABS: POTASSIUM 5.6 mmol/L (3.6-5.2); SODIUM 140 mmol/L (132-148)
[2017-01-08 11:36] LABS: ALB/GLOB RATIO 0.6 (1.0-2.1); BILIRUBIN,TOTAL 1.5 mg/dL (0.2-1.3); CARBON DIOXIDE 22 mmol/L (22-30); GFR AFRICAN-AMERICAN > 60; TOTAL PROTEIN 6.1 g/dL (6.3-8.3)
[2017-01-08 11:37] LABS: ALKALINE PHOSPHATASE 65 U/L (38-126); ALT/SGPT 33 U/L (9-52); AST/SGOT 21 U/L (14-36); BLOOD UREA NITROGEN 55 mg/dL (7-17); CALCIUM 7.5 mg/dl (8.6-10.4); GLUCOSE,RANDOM 160 mg/dL (65-105); PHOSPHOROUS 4.6 mg/dL (2.5-4.5)
[2017-01-08 11:38] LABS: MAGNESIUM 2.1 mg/dL (1.6-2.3)
[2017-01-08 12:43] LABS: NEUTROPHIL 82 % (50-75); NUCLEATED RED BLOOD CELL 1 % (0-0); TOTAL CELLS COUNTED 100
[2017-01-08 12:46] LABS: LARGE PLATELETS PRESENT
--- NOTE | 2017-01-08 14:34 | PCM.PYCHPN ---
Psychiatric Progress Note - Psychiatric Progress Note Patient seen today, length of contact: 15 min Patient Chief Complaint: "I dont know" Problems Identified/Issues Discussed: Patient seen and evaluated, chart reviewed and discussed with the nurse. As per the staff, patient has become more organized than before. Today patient reports improvement in her mood and denies any feelings of hopelessness or helplessness. She appeared brighter today and denied any auditory or visual hallucinations. She is taking medication and denies any side effects Supportive therapy and psychoeducation were given. Medication Change: Yes (Start Zoloft) Medical Record Reviewed: Yes Mental Status Examination - Cognitive Function Orientation: Person, Place Memory: Intact Attention: WNL Concentration: WNL Association: WNL Fund of Knowledge: Poor - Mood Mood: Depressed, Anxious - Affect Affect: Constricted, Depressed - Formal Thought Process Formal Thought Process: No Impairment - Suicidal Ideation Suicidal Ideation: No - Homicidal Ideation Homicidal Ideation: No Goal/Treatment Plan - Goal/Treatment Plan Need for Continued Stay: Discharge may exacerbated symptoms, Severe functional impairment Progress Toward Problem(s) and Goals/Treatment Plan: delirium due to medical conditions Depressive disorder CBT Psychoeducation Start Zoloft
--- NOTE | 2017-01-08 18:52 | CP.PCM.PN ---
Subjective - Date & Time of Evaluation Date of Evaluation: 01/08/17 Time of Evaluation: 11:40 - Subjective Subjective: pt. feels depressed due to family issue diet is still low Objective - Vital Signs/Intake and Output Vital Signs (last 24 hours): Temp Pulse Resp BP Pulse Ox 97.6 F 105 H 18 86/56 L 100 01/08/17 15:48 01/08/17 15:48 01/08/17 15:48 01/08/17 15:48 01/08/17 15:48 Intake and Output: 01/08/17 01/08/17 06:59 18:59 Intake Total 250 220 Output Total 400 120 Balance -150 100 - Medications Medications: Current Medications Acetaminophen (Tylenol 325mg Tab) 650 mg PO Q6 PRN PRN Reason: Pain, moderate (4-7) Last Admin: 01/05/17 09:44 Dose: 650 mg Albuterol/Ipratropium (Duoneb 3 Mg/0.5 Mg (3 Ml) Ud) 3 ml INH RQ6 REBECCA Last Admin: 01/08/17 13:29 Dose: 3 ml Guaifenesin (Robitussin) 100 mg PO Q4H PRN PRN Reason: Cough Last Admin: 01/05/17 12:02 Dose: 100 mg Tigecycline 50 mg/ Sodium (Chloride) 100 mls @ 100 mls/hr IV Q12H REBECCA Last Admin: 01/08/17 10:24 Dose: 100 mls/hr Methylprednisolone (Solu-Medrol) 40 mg IVP Q12 REBECCA Last Admin: 01/08/17 10:25 Dose: 40 mg Mupirocin (Bactroban 2% Nasal) 0.5 gm JENNIFER BID REBECCA Last Admin: 01/08/17 18:15 Dose: 0.5 gm Fluticasone/Salmeterol (Advair Diskus 250/50) 1 puff INH RQ12 REBECCA Last Admin: 01/08/17 10:42 Dose: Not Given Sertraline HCl (Zoloft) 25 mg PO DAILY [facility] - Labs Labs: 01/08/17 11:15 01/08/17 11:15 PT 18.7 SECONDS (9.7-12.2) H 01/06/17 10:58 INR 1.6 01/06/17 10:58 APTT 50 SECONDS (21-34) H 01/03/17 11:24 - Constitutional Appears: Well - Head Exam Head Exam: ATRAUMATIC, NORMAL INSPECTION, NORMOCEPHALIC - Eye Exam Eye Exam: EOMI, Normal appearance, PERRL Pupil Exam: NORMAL ACCOMODATION, PERRL - ENT Exam ENT Exam: Mucous Membranes Moist, Normal Exam - Neck Exam Neck Exam: Full ROM, Normal Inspection. absent: Lymphadenopathy - Respiratory Exam Respiratory Exam: Decreased Breath Sounds - Cardiovascular Exam Cardiovascular Exam: REGULAR RHYTHM, +S1, +S2 - GI/Abdominal Exam GI & Abdominal Exam: Soft, Diminished Bowel Sounds - Rectal Exam Rectal Exam: Deferred Assessment and Plan (1) Anemia Status: Acute (2) CHF (congestive heart failure) Status: Acute (3) Chest pain Status: Acute (4) Compression deformity of vertebra Status: Acute (5) Contusion of wrist Status: Acute (6) Dehydration Status: Acute (7) Diastolic CHF, acute on chronic Status: Acute (8) Edema Status: Acute (9) Fatigue Status: Acute (10) Fever Status: Acute (11) Lung mass Status: Acute (12) MRSA (methicillin resistant Staphylococcus aureus) carrier Status: Acute (13) Pancytopenia Status: Acute (14) Pneumonia Status: Acute (15) Low back pain Status: Chronic (16) Severe anemia Status: Chronic - Assessment and Plan (Free Text) Plan: delirium due to medical conditions Depressive disorder CBT Psychoeducation Start Zoloft continue othe meds as ordered f/u with hb and other labs
[2017-01-08] MEDS: Dextrose 5%/0.45% NS 1,000 ML IV SCH (20:00)
[2017-01-09] MEDS: Albuterol-Ipratrop 3 mg / 0.5 (3 ml) UD INH SCH ×4 (01:23→20:15)
[2017-01-09] MEDS: Fluticasone-Salmeterol 250-50mcg Diskus INH SCH ×2 (07:33→20:15)
--- NOTE | 2017-01-09 08:38 | CP.PCM.PN ---
Subjective - Date & Time of Evaluation Date of Evaluation: 01/09/17 Time of Evaluation: 10:00 - Subjective Subjective: Craig Herrera service: Patient seen in room. She has no complaints of pain but also reports a low appetite. She is asking for no blood work to be drawn and is only asking to be made comfortable. Objective - Vital Signs/Intake and Output Vital Signs (last 24 hours): Temp Pulse Resp BP Pulse Ox 98.2 F 101 H 20 92/57 L 100 01/09/17 08:27 01/09/17 08:27 01/09/17 08:27 01/09/17 08:27 01/09/17 08:27 Intake and Output: 01/09/17 01/09/17 06:59 18:59 Intake Total 630 Output Total 225 Balance 405 - Medications Medications: Current Medications Acetaminophen (Tylenol 325mg Tab) 650 mg PO Q6 PRN PRN Reason: Pain, moderate (4-7) Last Admin: 01/05/17 09:44 Dose: 650 mg Albuterol/Ipratropium (Duoneb 3 Mg/0.5 Mg (3 Ml) Ud) 3 ml INH RQ6 REBECCA Last Admin: 01/09/17 07:33 Dose: 3 ml Guaifenesin (Robitussin) 100 mg PO Q4H PRN PRN Reason: Cough Last Admin: 01/05/17 12:02 Dose: 100 mg Tigecycline 50 mg/ Sodium (Chloride) 100 mls @ 100 mls/hr IV Q12H REBECCA Last Admin: 01/08/17 22:17 Dose: 100 mls/hr Dextrose/Sodium Chloride (Dextrose 5%/0.45% Ns 1000 Ml) 1,000 mls @ 30 mls/hr IV .Q24H REBECCA Last Admin: 01/08/17 20:00 Dose: 30 mls/hr Methylprednisolone (Solu-Medrol) 40 mg IVP Q12 REBECCA Last Admin: 01/08/17 22:17 Dose: 40 mg Mupirocin (Bactroban 2% Nasal) 0.5 gm JENNIFER BID REBECCA Last Admin: 01/08/17 18:15 Dose: 0.5 gm Fluticasone/Salmeterol (Advair Diskus 250/50) 1 puff INH RQ12 REBECCA Last Admin: 01/09/17 07:33 Dose: Not Given Sertraline HCl (Zoloft) 25 mg PO DAILY REBECCA - Labs Labs: 01/08/17 11:15 01/08/17 11:15 PT 18.7 SECONDS (9.7-12.2) H 01/06/17 10:58 INR 1.6 01/06/17 10:58 APTT 50 SECONDS (21-34) H 01/03/17 11:24 - Constitutional Appears: No Acute Distress, Confused, Cachectic, Chronically Ill - Head Exam Head Exam: NORMAL INSPECTION - Eye Exam Eye Exam: Normal appearance Pupil Exam: NORMAL ACCOMODATION - Respiratory Exam Respiratory Exam: Clear to Ausculation Bilateral. absent: Rhonchi, Wheezes - Cardiovascular Exam Cardiovascular Exam: REGULAR RHYTHM, RRR, +S1, +S2. absent: Gallop, Rubs - GI/Abdominal Exam GI & Abdominal Exam: Soft, Normal Bowel Sounds. absent: Tenderness - Extremities Exam Extremities Exam: Normal Inspection. absent: Pedal Edema - Psychiatric Exam Psychiatric exam: Depressed, Normal Mood - Skin Skin Exam: Normal Color Assessment and Plan - Assessment and Plan (Free Text) Assessment: Assessment: 01/09: Awaiting decision for possible hospice, spoke with the son at length who said he wants some time to make a decision. Will try to keep patient comfortable for now, continue current management though patient is refusing lab work. 01/07: Psych evaluation per Dr. Hua that patient is unable to make her medication decisions. Spoke to the sister at length about hospice care. 01/06: Unable to contact family, Psych consult to determine patient's ability to make medical decisions. Previous note Patient is now DNR/DNI signed paper work is in the chart Baceremia Patient has gram negative rods, Tigacyle ordered per Dr. David, have ordered UA with urine culture. She has a upper lobe consolidation on the right isde, Dr. Iniguez consulted. Coagulopathy This could be DIV vs nutritional vs liver disease vas possibly metistatic disease. Spoke with Dr. Meier heme/onc consult. She has a possible right upper lobe mass but patient has refused bronchoscopy per Dr. Iniguez's note Anemia 01/03: Hbg 7.0, transfused 2 units, with 20 of Lasix after of given after the 1st tranfusion. 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 Consult Pulm- Dr. Iniguez Continue Azithromycin 500mg IVPB Daily CXR- 12/30/16- Worsening dense opacification seen within the right upper to mid lung zone as well as the left lung base with associated small to moderate left pleural effusion. Additional milder patchy consolidative changes at the right luing base and left hilar region. Diffuse increased interstitial markings with scattered nodules/ nodularity throughout both lungs CXR- 01/01/17- No significant interval change in RUL consolidation. Persistent cardiomegaly and pulmonary venous congestion. Suspect small left pleural effusion Duoneb Q6h PRN Solumedrol Q6h PRN Guaifenesin 100mg PO Q4h PRN ADvair 250/50mcg 1 puff INH Q12h REBECCA Liver abnormalities 01/03: Hepatitis panel negative, parcentesis yesterday removed 1800 cc straw colored fluid, follow up studies. CT of liver shows multiple hypodense lesions, see emr for full report. Dr. George consulted. Consult GI- Dr. George Abdominal CT- large abdominal and pelvic ascites. Anasarca. Moderate bilateral pleural effusions, consolidations and fibrosis. Nodular hepatic contour, may be cirrhosis. Indetermine 1.0cm left hepatic lobe and 1.1cm right inferior hepatic hypodense lesion. 7mm hypodensity within the anterior left hepatic lobe. Liver CT done- pending read Scheduled for IR paracentesis- f/u fluid studies Hx of CHF Previous ECHO 09/25/16: per Dr. Drake on last admission, Global Hypokenesis and LV dysfunction; EF 35%, Stage II diastolic dysfunction; No significant valve lesions Prophylactic Measure Protonix 40mg PO Daily SCDs
[2017-01-09] MEDS: MethylPREDNISolone 40 mg Vial IVP SCH ×2 (10:23→21:37)
[2017-01-09] MEDS: Mupirocin 2% Ointment (NASAL) NAS SCH ×2 (10:24→18:14)
--- NOTE | 2017-01-09 17:08 | CP.PCM.PN ---
Subjective - Date & Time of Evaluation Date of Evaluation: 01/09/17 Time of Evaluation: 11:20 - Subjective Subjective: clinically same Objective - Vital Signs/Intake and Output Vital Signs (last 24 hours): Temp Pulse Resp BP Pulse Ox 97.3 F L 105 H 20 102/71 100 01/09/17 15:33 01/09/17 15:33 01/09/17 15:33 01/09/17 15:33 01/09/17 15:33 Intake and Output: 01/09/17 01/09/17 06:59 18:59 Intake Total 630 150 Output Total 225 100 Balance 405 50 - Medications Medications: Current Medications Acetaminophen (Tylenol 325mg Tab) 650 mg PO Q6 PRN PRN Reason: Pain, moderate (4-7) Last Admin: 01/05/17 09:44 Dose: 650 mg Albuterol/Ipratropium (Duoneb 3 Mg/0.5 Mg (3 Ml) Ud) 3 ml INH RQ6 [facility] Last Admin: 01/09/17 13:19 Dose: Not Given Guaifenesin (Robitussin) 100 mg PO Q4H PRN PRN Reason: Cough Last Admin: 01/05/17 12:02 Dose: 100 mg Tigecycline 50 mg/ Sodium (Chloride) 100 mls @ 100 mls/hr IV Q12H [facility] Last Admin: 01/09/17 11:33 Dose: 100 mls/hr Dextrose/Sodium Chloride (Dextrose 5%/0.45% Ns 1000 Ml) 1,000 mls @ 30 mls/hr IV .Q24H [facility] Last Admin: 01/08/17 20:00 Dose: 30 mls/hr Methylprednisolone (Solu-Medrol) 40 mg IVP Q12 [facility] Last Admin: 01/09/17 10:23 Dose: 40 mg Mupirocin (Bactroban 2% Nasal) 0.5 gm JENNIFER BID [facility] Last Admin: 01/09/17 10:24 Dose: 0.5 gm Ondansetron HCl (Zofran Inj) 4 mg IVP Q6H PRN PRN Reason: Nausea/Vomiting Fluticasone/Salmeterol (Advair Diskus 250/50) 1 puff INH RQ12 [facility] Last Admin: 01/09/17 07:33 Dose: Not Given Sertraline HCl (Zoloft) 25 mg PO DAILY [facility] Last Admin: 01/09/17 10:23 Dose: 25 mg - Labs Labs: 01/08/17 11:15 01/08/17 11:15 PT 18.7 SECONDS (9.7-12.2) H 01/06/17 10:58 INR 1.6 01/06/17 10:58 APTT 50 SECONDS (21-34) H 01/03/17 11:24 - Constitutional Appears: Well - Head Exam Head Exam: ATRAUMATIC, NORMAL INSPECTION, NORMOCEPHALIC - Eye Exam Eye Exam: EOMI, Normal appearance, PERRL Pupil Exam: NORMAL ACCOMODATION, PERRL - ENT Exam ENT Exam: Mucous Membranes Moist, Normal Exam - Neck Exam Neck Exam: Full ROM, Normal Inspection. absent: Lymphadenopathy - Respiratory Exam Respiratory Exam: Decreased Breath Sounds - Cardiovascular Exam Cardiovascular Exam: Tachycardia, REGULAR RHYTHM, +S1, +S2 - GI/Abdominal Exam GI & Abdominal Exam: Soft, Diminished Bowel Sounds - Rectal Exam Rectal Exam: Deferred Assessment and Plan (1) Anemia Status: Acute (2) CHF (congestive heart failure) Status: Acute (3) Chest pain Status: Acute (4) Compression deformity of vertebra Status: Acute (5) Contusion of wrist Status: Acute (6) Dehydration Status: Acute (7) Diastolic CHF, acute on chronic Status: Acute (8) Edema Status: Acute (9) Fatigue Status: Acute (10) Fever Status: Acute (11) Lung mass Status: Acute (12) MRSA (methicillin resistant Staphylococcus aureus) carrier Status: Acute (13) Pancytopenia Status: Acute (14) Pneumonia Status: Acute (15) Low back pain Status: Chronic (16) Severe anemia Status: Chronic - Assessment and Plan (Free Text) Plan: DR. Hira medina continue antibiotic as ordered f/u hb and labs
--- NOTE | 2017-01-09 18:47 | CP.PCM.PN ---
Subjective - Date & Time of Evaluation Date of Evaluation: 01/09/17 Time of Evaluation: 09:00 - Subjective Subjective: completed 7 days tygacil may need long course rx will discuss with Dr Griggs Objective - Vital Signs/Intake and Output Vital Signs (last 24 hours): Temp Pulse Resp BP Pulse Ox 97.3 F L 105 H 20 102/71 100 01/09/17 15:33 01/09/17 15:33 01/09/17 15:33 01/09/17 15:33 01/09/17 15:33 Intake and Output: 01/09/17 01/09/17 06:59 18:59 Intake Total 630 150 Output Total 225 100 Balance 405 50 - Medications Medications: Current Medications Acetaminophen (Tylenol 325mg Tab) 650 mg PO Q6 PRN PRN Reason: Pain, moderate (4-7) Last Admin: 01/05/17 09:44 Dose: 650 mg Albuterol/Ipratropium (Duoneb 3 Mg/0.5 Mg (3 Ml) Ud) 3 ml INH RQ6 [facility] Last Admin: 01/09/17 13:19 Dose: Not Given Guaifenesin (Robitussin) 100 mg PO Q4H PRN PRN Reason: Cough Last Admin: 01/05/17 12:02 Dose: 100 mg Tigecycline 50 mg/ Sodium (Chloride) 100 mls @ 100 mls/hr IV Q12H [facility] Last Admin: 01/09/17 11:33 Dose: 100 mls/hr Dextrose/Sodium Chloride (Dextrose 5%/0.45% Ns 1000 Ml) 1,000 mls @ 30 mls/hr IV .Q24H [facility] Last Admin: 01/08/17 20:00 Dose: 30 mls/hr Methylprednisolone (Solu-Medrol) 40 mg IVP Q12 [facility] Last Admin: 01/09/17 10:23 Dose: 40 mg Mupirocin (Bactroban 2% Nasal) 0.5 gm JENNIFER BID [facility] Last Admin: 01/09/17 18:14 Dose: 0.5 gm Ondansetron HCl (Zofran Inj) 4 mg IVP Q6H PRN PRN Reason: Nausea/Vomiting Fluticasone/Salmeterol (Advair Diskus 250/50) 1 puff INH RQ12 [facility] Last Admin: 01/09/17 07:33 Dose: Not Given Sertraline HCl (Zoloft) 25 mg PO DAILY [facility] Last Admin: 01/09/17 10:23 Dose: 25 mg - Labs Labs: 01/08/17 11:15 01/08/17 11:15 PT 18.7 SECONDS (9.7-12.2) H 01/06/17 10:58 INR 1.6 01/06/17 10:58 APTT 50 SECONDS (21-34) H 01/03/17 11:24 - Constitutional Appears: Non-toxic, Cachectic, Chronically Ill - Head Exam Head Exam: NORMOCEPHALIC - Eye Exam Eye Exam: PERRL. absent: Scleral icterus - ENT Exam ENT Exam: Mucous Membranes Dry - Neck Exam Neck Exam: absent: Lymphadenopathy - Respiratory Exam Respiratory Exam: Decreased Breath Sounds, Rhonchi - Cardiovascular Exam Cardiovascular Exam: REGULAR RHYTHM, +S1 - GI/Abdominal Exam GI & Abdominal Exam: Distended, Soft. absent: Tenderness - Rectal Exam Rectal Exam: Deferred - Exam Exam: NORMAL INSPECTION - Extremities Exam Extremities Exam: absent: Calf Tenderness, Pedal Edema - Back Exam Back Exam: absent: CVA tenderness (L), CVA tenderness (R) - Neurological Exam Neurological Exam: Alert, Awake Assessment and Plan (1) Anemia Status: Acute (2) Pancytopenia Status: Acute (3) CHF (congestive heart failure) Status: Acute (4) MRSA (methicillin resistant Staphylococcus aureus) carrier Status: Acute (5) Lung mass Status: Acute
[2017-01-09] MEDS: Dextrose 5%/0.45% NS 1,000 ML IV SCH (19:07)
[2017-01-10] MEDS: Albuterol-Ipratrop 3 mg / 0.5 (3 ml) UD INH SCH ×4 (01:08→19:27)
[2017-01-10] MEDS: Fluticasone-Salmeterol 250-50mcg Diskus INH SCH ×2 (07:55→19:27)
[2017-01-10] MEDS: Dextrose 5%/0.45% NS 1,000 ML IV SCH ×2 (09:53→21:07)
[2017-01-10] MEDS: Mupirocin 2% Ointment (NASAL) NAS SCH ×2 (09:54→18:02)
[2017-01-10] MEDS: MethylPREDNISolone 40 mg Vial IVP SCH ×2 (09:54→21:09)
--- NOTE | 2017-01-10 10:18 | CP.PCM.PN ---
Subjective - Date & Time of Evaluation Date of Evaluation: 01/10/17 Time of Evaluation: 09:00 - Subjective Subjective: Dr. Craig Herrera. Patient is seen in room. She is very distressed and is asking to go home. She is not oriented to place or time. Objective - Vital Signs/Intake and Output Vital Signs (last 24 hours): Temp Pulse Resp BP Pulse Ox 98 F 110 H 20 80/58 L 100 01/10/17 07:00 01/10/17 07:00 01/10/17 07:00 01/10/17 07:00 01/10/17 07:00 Intake and Output: 01/10/17 01/10/17 06:59 18:59 Intake Total 440 Output Total 150 Balance 290 - Medications Medications: Current Medications Acetaminophen (Tylenol 325mg Tab) 650 mg PO Q6 PRN PRN Reason: Pain, moderate (4-7) Last Admin: 01/05/17 09:44 Dose: 650 mg Albuterol/Ipratropium (Duoneb 3 Mg/0.5 Mg (3 Ml) Ud) 3 ml INH RQ6 [facility] Last Admin: 01/10/17 07:55 Dose: 3 ml Guaifenesin (Robitussin) 100 mg PO Q4H PRN PRN Reason: Cough Last Admin: 01/05/17 12:02 Dose: 100 mg Tigecycline 50 mg/ Sodium (Chloride) 100 mls @ 100 mls/hr IV Q12H [facility] Last Admin: 01/09/17 22:04 Dose: 100 mls/hr Dextrose/Sodium Chloride (Dextrose 5%/0.45% Ns 1000 Ml) 1,000 mls @ 30 mls/hr IV .Q24H [facility] Last Admin: 01/10/17 09:53 Dose: 30 mls/hr Methylprednisolone (Solu-Medrol) 40 mg IVP Q12 [facility] Last Admin: 01/09/17 21:37 Dose: 40 mg Mupirocin (Bactroban 2% Nasal) 0.5 gm JENNIFER BID [facility] Last Admin: 01/09/17 18:14 Dose: 0.5 gm Ondansetron HCl (Zofran Inj) 4 mg IVP Q6H PRN PRN Reason: Nausea/Vomiting Fluticasone/Salmeterol (Advair Diskus 250/50) 1 puff INH RQ12 [facility] Last Admin: 01/10/17 07:55 Dose: Not Given Sertraline HCl (Zoloft) 25 mg PO DAILY [facility] Last Admin: 01/09/17 10:23 Dose: 25 mg - Labs Labs: 01/08/17 11:15 01/08/17 11:15 PT 18.7 SECONDS (9.7-12.2) H 01/06/17 10:58 INR 1.6 01/06/17 10:58 APTT 50 SECONDS (21-34) H 01/03/17 11:24 - Constitutional Appears: Non-toxic, No Acute Distress, Confused, Cachectic, Chronically Ill - Eye Exam Eye Exam: Normal appearance - Respiratory Exam Respiratory Exam: Clear to Ausculation Bilateral. absent: Rales, Rhonchi, Wheezes - Cardiovascular Exam Cardiovascular Exam: REGULAR RHYTHM, RRR, +S1, +S2. absent: Gallop, Rubs - GI/Abdominal Exam GI & Abdominal Exam: Soft, Normal Bowel Sounds. absent: Tenderness - Extremities Exam Extremities Exam: Normal Inspection - Back Exam Back Exam: NORMAL INSPECTION - Psychiatric Exam Psychiatric exam: Normal Affect, Normal Mood - Skin Skin Exam: Dry, Normal Color Assessment and Plan - Assessment and Plan (Free Text) Assessment: 01/10: Still pending hospice decision, patient may have a guardianship issue. She is still refusing lab work, will try to keep patient comfortable for now. She is still DNR/DNI 01/09: Awaiting decision for possible hospice, spoke with the son at length who said he wants some time to make a decision. Will try to keep patient comfortable for now, continue current management though patient is refusing lab work. 01/07: Psych evaluation per Dr. Hua that patient is unable to make her medication decisions. Spoke to the sister at length about hospice care. 01/06: Unable to contact family, Psych consult to determine patient's ability to make medical decisions. Previous note Patient is now DNR/DNI signed paper work is in the chart Baceremia Patient has gram negative rods, Tigacyle ordered per Dr. David, have ordered UA with urine culture. She has a upper lobe consolidation on the right isde, Dr. Iniguez consulted. Coagulopathy This could be DIV vs nutritional vs liver disease vas possibly metistatic disease. Spoke with Dr. Meier heme/onc consult. She has a possible right upper lobe mass but patient has refused bronchoscopy per Dr. Iniguez's note Anemia 01/03: Hbg 7.0, transfused 2 units, with 20 of Lasix after of given after the 1st tranfusion. 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 Consult Pulm- Dr. Iniguez Continue Azithromycin 500mg IVPB Daily CXR- 12/30/16- Worsening dense opacification seen within the right upper to mid lung zone as well as the left lung base with associated small to moderate left pleural effusion. Additional milder patchy consolidative changes at the right luing base and left hilar region. Diffuse increased interstitial markings with scattered nodules/ nodularity throughout both lungs CXR- 01/01/17- No significant interval change in RUL consolidation. Persistent cardiomegaly and pulmonary venous congestion. Suspect small left pleural effusion Duoneb Q6h PRN Solumedrol Q6h PRN Guaifenesin 100mg PO Q4h PRN ADvair 250/50mcg 1 puff INH Q12h [facility] Liver abnormalities 01/03: Hepatitis panel negative, parcentesis yesterday removed 1800 cc straw colored fluid, follow up studies. CT of liver shows multiple hypodense lesions, see emr for full report. Dr. George consulted. Consult GI- Dr. George Abdominal CT- large abdominal and pelvic ascites. Anasarca. Moderate bilateral pleural effusions, consolidations and fibrosis. Nodular hepatic contour, may be cirrhosis. Indetermine 1.0cm left hepatic lobe and 1.1cm right inferior hepatic hypodense lesion. 7mm hypodensity within the anterior left hepatic lobe. Liver CT done- pending read Scheduled for IR paracentesis- f/u fluid studies Hx of CHF Previous ECHO 09/25/16: per Dr. Drake on last admission, Global Hypokenesis and LV dysfunction; EF 35%, Stage II diastolic dysfunction; No significant valve lesions Prophylactic Measure Protonix 40mg PO Daily [facility]CD[facility]
--- NOTE | 2017-01-10 14:30 | CP.PCM.PN ---
Subjective - Date & Time of Evaluation Date of Evaluation: 01/10/17 Time of Evaluation: 11:20 - Subjective Subjective: pt. is in distress asking to go home Objective - Vital Signs/Intake and Output Vital Signs (last 24 hours): Temp Pulse Resp BP Pulse Ox 98 F 110 H 20 80/58 L 100 01/10/17 07:00 01/10/17 07:00 01/10/17 07:00 01/10/17 07:00 01/10/17 07:00 Intake and Output: 01/10/17 01/10/17 06:59 18:59 Intake Total 440 Output Total 150 Balance 290 - Medications Medications: Current Medications Acetaminophen (Tylenol 325mg Tab) 650 mg PO Q6 PRN PRN Reason: Pain, moderate (4-7) Last Admin: 01/05/17 09:44 Dose: 650 mg Albuterol/Ipratropium (Duoneb 3 Mg/0.5 Mg (3 Ml) Ud) 3 ml INH RQ6 [facility] Last Admin: 01/10/17 13:38 Dose: Not Given Guaifenesin (Robitussin) 100 mg PO Q4H PRN PRN Reason: Cough Last Admin: 01/05/17 12:02 Dose: 100 mg Tigecycline 50 mg/ Sodium (Chloride) 100 mls @ 100 mls/hr IV Q12H [facility] Last Admin: 01/10/17 12:00 Dose: 100 mls/hr Dextrose/Sodium Chloride (Dextrose 5%/0.45% Ns 1000 Ml) 1,000 mls @ 30 mls/hr IV .Q24H [facility] Last Admin: 01/10/17 09:53 Dose: 30 mls/hr Methylprednisolone (Solu-Medrol) 40 mg IVP Q12 [facility] Last Admin: 01/10/17 09:54 Dose: 40 mg Mupirocin (Bactroban 2% Nasal) 0.5 gm JENNIFER BID [facility] Last Admin: 01/10/17 09:54 Dose: 0.5 gm Ondansetron HCl (Zofran Inj) 4 mg IVP Q6H PRN PRN Reason: Nausea/Vomiting Fluticasone/Salmeterol (Advair Diskus 250/50) 1 puff INH RQ12 [facility] Last Admin: 01/10/17 07:55 Dose: Not Given Sertraline HCl (Zoloft) 25 mg PO DAILY [facility] Last Admin: 01/09/17 10:23 Dose: 25 mg - Labs Labs: 01/08/17 11:15 01/08/17 11:15 PT 18.7 SECONDS (9.7-12.2) H 01/06/17 10:58 INR 1.6 01/06/17 10:58 APTT 50 SECONDS (21-34) H 01/03/17 11:24 - Constitutional Appears: Well - Head Exam Head Exam: ATRAUMATIC, NORMAL INSPECTION, NORMOCEPHALIC - Eye Exam Eye Exam: EOMI, Normal appearance, PERRL Pupil Exam: NORMAL ACCOMODATION, PERRL - ENT Exam ENT Exam: Mucous Membranes Moist, Normal Exam - Neck Exam Neck Exam: Full ROM, Normal Inspection. absent: Lymphadenopathy - Respiratory Exam Respiratory Exam: Decreased Breath Sounds - Cardiovascular Exam Cardiovascular Exam: REGULAR RHYTHM, +S1 - GI/Abdominal Exam GI & Abdominal Exam: Soft, Diminished Bowel Sounds - Rectal Exam Rectal Exam: Deferred Assessment and Plan - Assessment and Plan (Free Text) Plan: DR. Hira Whatley, adam continue Meds as ordered hb monitoring and f/u labs
[2017-01-11] MEDS: Albuterol-Ipratrop 3 mg / 0.5 (3 ml) UD INH SCH ×4 (01:21→20:13)
[2017-01-11] MEDS: Fluticasone-Salmeterol 250-50mcg Diskus INH SCH (07:55)
[2017-01-11] MEDS: MethylPREDNISolone 40 mg Vial IVP SCH ×2 (09:33→21:21)
[2017-01-11] MEDS: Mupirocin 2% Ointment (NASAL) NAS SCH ×2 (09:34→17:46)
--- NOTE | 2017-01-11 14:04 | CP.PCM.PN ---
Subjective - Date & Time of Evaluation Date of Evaluation: 01/11/17 Time of Evaluation: 11:40 - Subjective Subjective: clinically same Objective - Vital Signs/Intake and Output Vital Signs (last 24 hours): Temp Pulse Resp BP Pulse Ox 97.4 F L 97 H 18 75/50 L 97 01/11/17 07:17 01/11/17 07:17 01/11/17 07:17 01/11/17 07:17 01/11/17 07:17 Intake and Output: 01/11/17 01/11/17 06:59 18:59 Intake Total 440 Balance 440 - Medications Medications: Current Medications Acetaminophen (Tylenol 325mg Tab) 650 mg PO Q6 PRN PRN Reason: Pain, moderate (4-7) Last Admin: 01/05/17 09:44 Dose: 650 mg Albuterol/Ipratropium (Duoneb 3 Mg/0.5 Mg (3 Ml) Ud) 3 ml INH RQ6 [facility] Last Admin: 01/11/17 13:48 Dose: Not Given Guaifenesin (Robitussin) 100 mg PO Q4H PRN PRN Reason: Cough Last Admin: 01/05/17 12:02 Dose: 100 mg Tigecycline 50 mg/ Sodium (Chloride) 100 mls @ 100 mls/hr IV Q12H [facility] Last Admin: 01/11/17 11:00 Dose: 100 mls/hr Dextrose/Sodium Chloride (Dextrose 5%/0.45% Ns 1000 Ml) 1,000 mls @ 30 mls/hr IV .Q24H [facility] Last Admin: 01/10/17 21:07 Dose: Not Given Methylprednisolone (Solu-Medrol) 40 mg IVP Q12 [facility] Last Admin: 01/11/17 09:33 Dose: 40 mg Mupirocin (Bactroban 2% Nasal) 0.5 gm JENNIFER BID [facility] Last Admin: 01/11/17 09:34 Dose: 0.5 gm Ondansetron HCl (Zofran Inj) 4 mg IVP Q6H PRN PRN Reason: Nausea/Vomiting Fluticasone/Salmeterol (Advair Diskus 250/50) 1 puff INH RQ12 [facility] Last Admin: 01/11/17 07:55 Dose: Not Given Sertraline HCl (Zoloft) 25 mg PO DAILY [facility] Last Admin: 01/11/17 09:33 Dose: 25 mg - Labs Labs: 01/08/17 11:15 01/08/17 11:15 PT 18.7 SECONDS (9.7-12.2) H 01/06/17 10:58 INR 1.6 01/06/17 10:58 APTT 50 SECONDS (21-34) H 01/03/17 11:24 - Constitutional Appears: Well - Head Exam Head Exam: ATRAUMATIC, NORMAL INSPECTION, NORMOCEPHALIC - Eye Exam Eye Exam: EOMI, Normal appearance, PERRL Pupil Exam: NORMAL ACCOMODATION, PERRL - ENT Exam ENT Exam: Mucous Membranes Moist, Normal Exam - Neck Exam Neck Exam: Full ROM, Normal Inspection. absent: Lymphadenopathy - Respiratory Exam Respiratory Exam: Decreased Breath Sounds - Cardiovascular Exam Cardiovascular Exam: REGULAR RHYTHM, +S1, +S2 - GI/Abdominal Exam GI & Abdominal Exam: Soft, Diminished Bowel Sounds - Rectal Exam Rectal Exam: Deferred Assessment and Plan - Assessment and Plan (Free Text) Plan: continue Mx as ordered Dr. jamilah Rod
[2017-01-11] MEDS: Dextrose 5%/0.45% NS 1,000 ML IV SCH ×2 (21:23→21:25)
[2017-01-12] MEDS: Albuterol-Ipratrop 3 mg / 0.5 (3 ml) UD INH SCH ×4 (01:49→19:50)
[2017-01-12] MEDS: Fluticasone-Salmeterol 250-50mcg Diskus INH SCH (08:33)
[2017-01-12] MEDS: Mupirocin 2% Ointment (NASAL) NAS SCH ×2 (09:27→17:24)
[2017-01-12] MEDS: MethylPREDNISolone 40 mg Vial IVP SCH ×2 (09:27→21:24)
--- NOTE | 2017-01-12 11:37 | CP.PCM.PN ---
Subjective - Date & Time of Evaluation Date of Evaluation: 01/12/17 Time of Evaluation: 11:40 - Subjective Subjective: clinically same cachetic Objective - Vital Signs/Intake and Output Vital Signs (last 24 hours): Temp Pulse Resp BP Pulse Ox 96.6 F L 98 H 20 56/45 L 99 01/12/17 07:00 01/12/17 07:00 01/12/17 07:00 01/12/17 07:00 01/12/17 07:00 Intake and Output: 01/12/17 01/12/17 06:59 18:59 Intake Total 1140 Output Total 200 Balance 940 - Medications Medications: Current Medications Acetaminophen (Tylenol 325mg Tab) 650 mg PO Q6 PRN PRN Reason: Pain, moderate (4-7) Last Admin: 01/05/17 09:44 Dose: 650 mg Albuterol/Ipratropium (Duoneb 3 Mg/0.5 Mg (3 Ml) Ud) 3 ml INH RQ6 [facility] Last Admin: 01/12/17 08:33 Dose: Not Given Guaifenesin (Robitussin) 100 mg PO Q4H PRN PRN Reason: Cough Last Admin: 01/05/17 12:02 Dose: 100 mg Tigecycline 50 mg/ Sodium (Chloride) 100 mls @ 100 mls/hr IV Q12H [facility] Last Admin: 01/11/17 22:03 Dose: 100 mls/hr Methylprednisolone (Solu-Medrol) 40 mg IVP Q12 [facility] Last Admin: 01/12/17 09:27 Dose: 40 mg Mupirocin (Bactroban 2% Nasal) 0.5 gm JENNIFER BID [facility] Last Admin: 01/12/17 09:27 Dose: 0.5 gm Ondansetron HCl (Zofran Inj) 4 mg IVP Q6H PRN PRN Reason: Nausea/Vomiting Fluticasone/Salmeterol (Advair Diskus 250/50) 1 puff INH RQ12 [facility] Last Admin: 01/12/17 08:33 Dose: Not Given Sertraline HCl (Zoloft) 25 mg PO DAILY [facility] Last Admin: 01/12/17 09:27 Dose: 25 mg - Labs Labs: 01/08/17 11:15 01/08/17 11:15 PT 18.7 SECONDS (9.7-12.2) H 01/06/17 10:58 INR 1.6 01/06/17 10:58 APTT 50 SECONDS (21-34) H 01/03/17 11:24 - Constitutional Appears: Well - Head Exam Head Exam: ATRAUMATIC, NORMAL INSPECTION, NORMOCEPHALIC - Eye Exam Eye Exam: EOMI, Normal appearance, PERRL Pupil Exam: NORMAL ACCOMODATION, PERRL - ENT Exam ENT Exam: Mucous Membranes Moist, Normal Exam - Neck Exam Neck Exam: Full ROM, Normal Inspection. absent: Lymphadenopathy - Respiratory Exam Respiratory Exam: Decreased Breath Sounds - Cardiovascular Exam Cardiovascular Exam: REGULAR RHYTHM, +S1, +S2 - GI/Abdominal Exam GI & Abdominal Exam: Soft, Diminished Bowel Sounds - Rectal Exam Rectal Exam: Deferred Assessment and Plan - Assessment and Plan (Free Text) Plan: DR. adam askew continue meds as order f/u CXR
--- NOTE | 2017-01-12 15:10 | CP.PCM.PN ---
Subjective - Date & Time of Evaluation Date of Evaluation: 01/12/17 Time of Evaluation: 07:00 - Subjective Subjective: remains severely cachectic nad iv rx in progress Objective - Vital Signs/Intake and Output Vital Signs (last 24 hours): Temp Pulse Resp BP Pulse Ox 96.6 F L 98 H 20 56/45 L 99 01/12/17 07:00 01/12/17 07:00 01/12/17 07:00 01/12/17 07:00 01/12/17 07:00 Intake and Output: 01/12/17 01/12/17 06:59 18:59 Intake Total 1140 Output Total 200 Balance 940 - Medications Medications: Current Medications Acetaminophen (Tylenol 325mg Tab) 650 mg PO Q6 PRN PRN Reason: Pain, moderate (4-7) Last Admin: 01/05/17 09:44 Dose: 650 mg Albuterol/Ipratropium (Duoneb 3 Mg/0.5 Mg (3 Ml) Ud) 3 ml INH RQ6 [facility] Last Admin: 01/12/17 13:54 Dose: Not Given Guaifenesin (Robitussin) 100 mg PO Q4H PRN PRN Reason: Cough Last Admin: 01/05/17 12:02 Dose: 100 mg Tigecycline 50 mg/ Sodium (Chloride) 100 mls @ 100 mls/hr IV Q12H [facility] Last Admin: 01/11/17 22:03 Dose: 100 mls/hr Methylprednisolone (Solu-Medrol) 40 mg IVP Q12 [facility] Last Admin: 01/12/17 09:27 Dose: 40 mg Mupirocin (Bactroban 2% Nasal) 0.5 gm JENNIFER BID [facility] Last Admin: 01/12/17 09:27 Dose: 0.5 gm Ondansetron HCl (Zofran Inj) 4 mg IVP Q6H PRN PRN Reason: Nausea/Vomiting Fluticasone/Salmeterol (Advair Diskus 250/50) 1 puff INH RQ12 [facility] Last Admin: 01/12/17 08:33 Dose: Not Given Sertraline HCl (Zoloft) 25 mg PO DAILY [facility] Last Admin: 01/12/17 09:27 Dose: 25 mg - Labs Labs: 01/08/17 11:15 01/08/17 11:15 PT 18.7 SECONDS (9.7-12.2) H 01/06/17 10:58 INR 1.6 01/06/17 10:58 APTT 50 SECONDS (21-34) H 01/03/17 11:24 - Constitutional Appears: Confused, Cachectic, Chronically Ill - Head Exam Head Exam: NORMOCEPHALIC - Eye Exam Eye Exam: PERRL. absent: Scleral icterus - ENT Exam ENT Exam: Mucous Membranes Dry - Neck Exam Neck Exam: absent: Lymphadenopathy - Respiratory Exam Respiratory Exam: Decreased Breath Sounds, Rhonchi - Cardiovascular Exam Cardiovascular Exam: REGULAR RHYTHM, +S1, +S2 - GI/Abdominal Exam GI & Abdominal Exam: Distended, Soft. 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
--- NOTE | 2017-01-12 16:41 | CP.PCM.PN ---
Subjective - Date & Time of Evaluation Date of Evaluation: 01/12/17 Time of Evaluation: 15:30 - Subjective Subjective: Patient seen and examined. No soreness of breath, cough, fever or chills complaining of aches and pain Objective - Vital Signs/Intake and Output Vital Signs (last 24 hours): Temp Pulse Resp BP Pulse Ox 96.6 F L 98 H 20 56/45 L 99 01/12/17 07:00 01/12/17 07:00 01/12/17 07:00 01/12/17 07:00 01/12/17 07:00 Intake and Output: 01/12/17 01/12/17 06:59 18:59 Intake Total 1140 Output Total 200 Balance 940 - Medications Medications: Current Medications Acetaminophen (Tylenol 325mg Tab) 650 mg PO Q6 PRN PRN Reason: Pain, moderate (4-7) Last Admin: 01/05/17 09:44 Dose: 650 mg Albuterol/Ipratropium (Duoneb 3 Mg/0.5 Mg (3 Ml) Ud) 3 ml INH RQ6 [facility] Last Admin: 01/12/17 13:54 Dose: Not Given Guaifenesin (Robitussin) 100 mg PO Q4H PRN PRN Reason: Cough Last Admin: 01/05/17 12:02 Dose: 100 mg Tigecycline 50 mg/ Sodium (Chloride) 100 mls @ 100 mls/hr IV Q12H [facility] Last Admin: 01/11/17 22:03 Dose: 100 mls/hr Methylprednisolone (Solu-Medrol) 40 mg IVP Q12 [facility] Last Admin: 01/12/17 09:27 Dose: 40 mg Mupirocin (Bactroban 2% Nasal) 0.5 gm JENNIFER BID [facility] Last Admin: 01/12/17 09:27 Dose: 0.5 gm Ondansetron HCl (Zofran Inj) 4 mg IVP Q6H PRN PRN Reason: Nausea/Vomiting Fluticasone/Salmeterol (Advair Diskus 250/50) 1 puff INH RQ12 [facility] Last Admin: 01/12/17 08:33 Dose: Not Given Sertraline HCl (Zoloft) 25 mg PO DAILY [facility] Last Admin: 01/12/17 09:27 Dose: 25 mg - Labs Labs: 01/08/17 11:15 01/08/17 11:15 PT 18.7 SECONDS (9.7-12.2) H 01/06/17 10:58 INR 1.6 01/06/17 10:58 APTT 50 SECONDS (21-34) H 01/03/17 11:24 - Head Exam Head Exam: ATRAUMATIC, NORMOCEPHALIC - ENT Exam ENT Exam: Mucous Membranes Dry - Neck Exam Neck Exam: Normal Inspection - Respiratory Exam Respiratory Exam: Decreased Breath Sounds, Rales - Cardiovascular Exam Cardiovascular Exam: REGULAR RHYTHM - GI/Abdominal Exam GI & Abdominal Exam: Soft, Normal Bowel Sounds Assessment and Plan (1) Pneumonia Assessment & Plan: Continue antibiotics as per ID Follow-up chest x-ray Status: Acute (2) Anemia Status: Acute (3) Lung mass Status: Acute
[2017-01-13] MEDS: Albuterol-Ipratrop 3 mg / 0.5 (3 ml) UD INH SCH ×4 (01:30→19:25)
[2017-01-13] MEDS: Fluticasone-Salmeterol 250-50mcg Diskus INH SCH ×3 (09:04→19:26)
[2017-01-13] MEDS ORDERED: Sodium Chloride 0.9% 1,000 ML IV ONE (09:12)
[2017-01-13] MEDS ORDERED: Sodium Chloride 0.9% 1,000 ML IV SCH (09:15)
[2017-01-13] MEDS: MethylPREDNISolone 40 mg Vial IVP SCH ×2 (09:31→22:24)
[2017-01-13] MEDS: Mupirocin 2% Ointment (NASAL) NAS SCH ×2 (09:31→18:35)
[2017-01-13] MEDS ORDERED: Sodium Chloride 0.9% 250 ML IV ONE (09:58)
--- NOTE | 2017-01-13 10:04 | CP.PCM.PN ---
Subjective - Date & Time of Evaluation Date of Evaluation: 01/13/17 Time of Evaluation: 08:00 - Subjective Subjective: Patient seen and examined. hypotensive no Shortness of breath or active bleeding noted Objective - Vital Signs/Intake and Output Vital Signs (last 24 hours): Temp Pulse Resp BP Pulse Ox 97.3 F L 85 18 65/48 L 97 01/13/17 07:17 01/13/17 07:17 01/13/17 07:17 01/13/17 07:17 01/13/17 07:17 Intake and Output: 01/13/17 01/13/17 06:59 18:59 Intake Total 580 Output Total 200 Balance 380 - Medications Medications: Current Medications Acetaminophen (Tylenol 325mg Tab) 650 mg PO Q6 PRN PRN Reason: Pain, moderate (4-7) Last Admin: 01/05/17 09:44 Dose: 650 mg Albuterol/Ipratropium (Duoneb 3 Mg/0.5 Mg (3 Ml) Ud) 3 ml INH RQ6 [facility] Last Admin: 01/13/17 09:04 Dose: 3 ml Guaifenesin (Robitussin) 100 mg PO Q4H PRN PRN Reason: Cough Last Admin: 01/05/17 12:02 Dose: 100 mg Tigecycline 50 mg/ Sodium (Chloride) 100 mls @ 100 mls/hr IV Q12H [facility] Last Admin: 01/12/17 23:25 Dose: 100 mls/hr Sodium Chloride (Sodium Chloride 0.9%) 1,000 mls @ 1,000 mls/hr IV .Q1H ONE Stop: 01/13/17 10:11 Sodium Chloride (Sodium Chloride 0.9%) 1,000 mls @ 100 mls/hr IV .Q10H [facility] Sodium Chloride (Sodium Chloride 0.9%) 250 mls @ 999 mls/hr IV .Q16M ONE Stop: 01/13/17 10:13 Methylprednisolone (Solu-Medrol) 40 mg IVP Q12 [facility] Last Admin: 01/13/17 09:31 Dose: 40 mg Mupirocin (Bactroban 2% Nasal) 0.5 gm JENNIFER BID REBECCA Last Admin: 01/13/17 09:31 Dose: 0.5 gm Ondansetron HCl (Zofran Inj) 4 mg IVP Q6H PRN PRN Reason: Nausea/Vomiting Fluticasone/Salmeterol (Advair Diskus 250/50) 1 puff INH RQ12 COUNTS INCLUDE 234 BEDS AT THE [facility] Last Admin: 01/13/17 09:05 Dose: Not Given Sertraline HCl (Zoloft) 25 mg PO DAILY COUNTS INCLUDE 234 BEDS AT THE [facility] Last Admin: 01/13/17 09:31 Dose: 25 mg - Labs Labs: 01/08/17 11:15 01/08/17 11:15 PT 18.7 SECONDS (9.7-12.2) H 01/06/17 10:58 INR 1.6 01/06/17 10:58 APTT 50 SECONDS (21-34) H 01/03/17 11:24 - Head Exam Head Exam: ATRAUMATIC, NORMOCEPHALIC - ENT Exam ENT Exam: Mucous Membranes Dry - Neck Exam Neck Exam: Normal Inspection - Respiratory Exam Respiratory Exam: Decreased Breath Sounds - Cardiovascular Exam Cardiovascular Exam: REGULAR RHYTHM - GI/Abdominal Exam GI & Abdominal Exam: Soft, Normal Bowel Sounds - Extremities Exam Extremities Exam: Pedal Edema Assessment and Plan (1) Pneumonia Assessment & Plan: Continue antibiotics as per ID Fluid resuscitation for hypotension No active bleeding noted and H&H stable Continue nebulizer treatment Status: Acute (2) Anemia Status: Acute (3) Lung mass Assessment & Plan: refused bronchoscopy and biopsy in the past Status: Acute
--- NOTE | 2017-01-13 14:08 | CP.PCM.PN ---
<oRsanne Lane H - Last Filed: 01/13/17 14:05> Subjective - Date & Time of Evaluation Date of Evaluation: 01/13/17 Time of Evaluation: 09:00 - Subjective Subjective: PGY2 Medicine Note - Dr. Anh Herrera's service: Patient seen and examined at bedside this AM. Patient very cachectic and agitated. Patient says she does not want anyone touching her when I was listening to her heart. Patient says all she wants is "a glass of diet coke with ice and for someone to please turn on the god damn vacuum." Objective - Vital Signs/Intake and Output Vital Signs (last 24 hours): Temp Pulse Resp BP Pulse Ox 97.3 F L 85 18 65/48 L 97 01/13/17 07:17 01/13/17 07:17 01/13/17 07:17 01/13/17 07:17 01/13/17 07:17 Intake and Output: 01/13/17 01/13/17 06:59 18:59 Intake Total 580 Output Total 200 Balance 380 - Medications Medications: Current Medications Acetaminophen (Tylenol 325mg Tab) 650 mg PO Q6 PRN PRN Reason: Pain, moderate (4-7) Last Admin: 01/05/17 09:44 Dose: 650 mg Albuterol/Ipratropium (Duoneb 3 Mg/0.5 Mg (3 Ml) Ud) 3 ml INH RQ6 [facility] Last Admin: 01/13/17 13:52 Dose: Not Given Guaifenesin (Robitussin) 100 mg PO Q4H PRN PRN Reason: Cough Last Admin: 01/05/17 12:02 Dose: 100 mg Tigecycline 50 mg/ Sodium (Chloride) 100 mls @ 100 mls/hr IV Q12H [facility] Last Admin: 01/13/17 11:01 Dose: 100 mls/hr Sodium Chloride (Sodium Chloride 0.9%) 1,000 mls @ 100 mls/hr IV .Q10H [facility] Methylprednisolone (Solu-Medrol) 40 mg IVP Q12 [facility] Last Admin: 01/13/17 09:31 Dose: 40 mg Mupirocin (Bactroban 2% Nasal) 0.5 gm JENNIFER BID [facility] Last Admin: 01/13/17 09:31 Dose: 0.5 gm Ondansetron HCl (Zofran Inj) 4 mg IVP Q6H PRN PRN Reason: Nausea/Vomiting Fluticasone/Salmeterol (Advair Diskus 250/50) 1 puff INH RQ12 [facility] Last Admin: 01/13/17 09:05 Dose: Not Given Sertraline HCl (Zoloft) 25 mg PO DAILY [facility] Last Admin: 01/13/17 09:31 Dose: 25 mg - Labs Labs: 01/08/17 11:15 01/08/17 11:15 PT 18.7 SECONDS (9.7-12.2) H 01/06/17 10:58 INR 1.6 01/06/17 10:58 APTT 50 SECONDS (21-34) H 01/03/17 11:24 - Constitutional Appears: Cachectic, Chronically Ill - Eye Exam Eye Exam: EOMI - ENT Exam ENT Exam: Mucous Membranes Dry - Respiratory Exam Additional comments: unable to perform this part of exam due to patient not cooperating - Cardiovascular Exam Cardiovascular Exam: REGULAR RHYTHM, +S1, +S2 - GI/Abdominal Exam Additional comments: unable to perform this part of exam due to patient not cooperating - Extremities Exam Extremities Exam: Pedal Edema - Neurological Exam Neurological Exam: Alert, Awake - Psychiatric Exam Psychiatric exam: Agitated - Skin Skin Exam: Normal Color Assessment and Plan - Assessment and Plan (Free Text) Assessment: 01/13: Pending guardianship and hospice eval. Patient refusing blood work. 01/10:Still pending hospice decision, patient may have a guardianship issue. She is still refusing lab work, will try to keep patient comfortable for now. She is still DNR/DNI 01/09:Awaiting decision for possible hospice, spoke with the son at length who said he wants some time to make a decision. Will try to keep patient comfortable for now, continue current management though patient is refusing lab work. 01/07: Psych evaluation per Dr. Hua that patient is unable to make her medication decisions. Spoke to the sister at length about hospice care. 01/06: Unable to contact family, Psych consult to determine patient's ability to make medical decisions. Patient is now DNR/DNI signed paper work is in the chart Baceremia 01/02/17 blood culture - positive for E.Coli WBC and bands improved as of 01/08/17. Patient refusing blood work Tigecycline 50mg IVPB Q12H ID consult - Dr. David - help appreciated CXR 01/03/17 - right apical and upper lobe apacity probably represents some combincation of atelectasis and/or infiltrate. Mild right basilar atelectasis. Suspect mild left basilar atelectasis questionable small effusion. Pulmonology consult - Dr. Iniguez - help appreciated Coagulopathy This could be nutritional vs liver disease vas possibly metistatic disease. Spoke with Dr. Meier heme/onc consult. She has a possible right upper lobe mass but patient has refused bronchoscopy per Dr. Iniguez's note Anemia Refusing blood work 01/08 Hgb 8.4 01/03: Hbg 7.0, transfused 2 units, with 20 of Lasix after of given after the 1st tranfusion. 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 Iniguez CXR- 12/30/16- Worsening dense opacification seen within the right upper to mid lung zone as well as the left lung base with associated small to moderate left pleural effusion. Additional milder patchy consolidative changes at the right luing base and left hilar region. Diffuse increased interstitial markings with scattered nodules/ nodularity throughout both lungs CXR- 01/01/17- No significant interval change in RUL consolidation. Persistent cardiomegaly and pulmonary venous congestion. Suspect small left pleural effusion Duoneb Q6h PRN Solumedrol Q6h PRN Guaifenesin 100mg PO Q4h PRN ADvair 250/50mcg 1 puff INH Q12h [facility] Tigecycline 50mg IVPB Q12H Liver abnormalities 01/03: Hepatitis panel negative, parcentesis yesterday removed 1800 cc straw colored fluid, follow up studies. CT of liver shows multiple hypodense lesions, see emr for full report. Dr. George consulted. Consult GI- Dr. George Abdominal CT- large abdominal and pelvic ascites. Anasarca. Moderate bilateral pleural effusions, consolidations and fibrosis. Nodular hepatic contour, may be cirrhosis. Indetermine 1.0cm left hepatic lobe and 1.1cm right inferior hepatic hypodense lesion. 7mm hypodensity within the anterior left hepatic lobe. Liver CT done- pending read Scheduled for IR paracentesis- f/u fluid studies Hx of CHF Previous ECHO 09/25/16: per Dr. Drake on last admission, Global Hypokenesis and LV dysfunction; EF 35%, Stage II diastolic dysfunction; No significant valve lesions Depression Psych consult - Dr. Hua - help appreciated Palliative Care consult - help appreciated Prophylactic Measure Protonix 40mg PO Daily SCDs <Ferny Herrera S - Last Filed: 01/14/17 19:37> Objective - Vital Signs/Intake and Output Vital Signs (last 24 hours): Temp Pulse Resp BP Pulse Ox 97.3 F L 78 18 68/48 L 95 01/14/17 17:00 01/14/17 17:00 01/14/17 17:00 01/14/17 17:00 01/14/17 17:00 Intake and Output: 01/14/17 01/15/17 18:59 06:59 Intake Total 500 Output Total 350 Balance 150 - Medications Medications: Current Medications Acetaminophen (Tylenol 325mg Tab) 650 mg PO Q6 PRN PRN Reason: Pain, moderate (4-7) Last Admin: 01/05/17 09:44 Dose: 650 mg Albuterol/Ipratropium (Duoneb 3 Mg/0.5 Mg (3 Ml) Ud) 3 ml INH RQ6 [facility] Last Admin: 01/14/17 19:29 Dose: Not Given Guaifenesin (Robitussin) 100 mg PO Q4H PRN PRN Reason: Cough Last Admin: 01/05/17 12:02 Dose: 100 mg Tigecycline 50 mg/ Sodium (Chloride) 100 mls @ 100 mls/hr IV Q12H [facility] Last Admin: 01/14/17 10:15 Dose: 100 mls/hr Sodium Chloride (Sodium Chloride 0.9%) 1,000 mls @ 100 mls/hr IV .Q10H [facility] Methylprednisolone (Solu-Medrol) 40 mg IVP Q12 [facility] Last Admin: 01/14/17 10:10 Dose: 40 mg Mupirocin (Bactroban 2% Nasal) 0.5 gm JENNIFER BID [facility]BECCA Last Admin: 01/14/17 10:10 Dose: 0.5 gm Ondansetron HCl (Zofran Inj) 4 mg IVP Q6H PRN PRN Reason: Nausea/Vomiting Fluticasone/Salmeterol (Advair Diskus 250/50) 1 puff INH RQ12 [facility] Last Admin: 01/14/17 19:30 Dose: Not Given Sertraline HCl (Zoloft) 25 mg PO DAILY [facility] Last Admin: 01/14/17 10:18 Dose: 25 mg - Labs Labs: 01/08/17 11:15 01/08/17 11:15 PT 18.7 SECONDS (9.7-12.2) H 01/06/17 10:58 INR 1.6 01/06/17 10:58 APTT 50 SECONDS (21-34) H 01/03/17 11:24 Attending/Attestation - Attestation I have personally seen and examined this patient.: Yes I have fully participated in the care of the patient.: Yes I have reviewed all pertinent clinical information, including history, physical exam and plan: Yes Notes (Text): case seen and discussed with pt and mx as ordered
--- NOTE | 2017-01-13 17:51 | CP.PCM.PN ---
Subjective - Date & Time of Evaluation Date of Evaluation: 01/13/17 Time of Evaluation: 12:00 - Subjective Subjective: hypotension cachectic and in distress anxious Objective - Vital Signs/Intake and Output Vital Signs (last 24 hours): Temp Pulse Resp BP Pulse Ox 97.5 F L 88 22 63/45 L 98 01/13/17 16:05 01/13/17 16:05 01/13/17 16:05 01/13/17 16:05 01/13/17 16:05 Intake and Output: 01/13/17 01/13/17 06:59 18:59 Intake Total 580 1050 Output Total 200 250 Balance 380 800 - Medications Medications: Current Medications Acetaminophen (Tylenol 325mg Tab) 650 mg PO Q6 PRN PRN Reason: Pain, moderate (4-7) Last Admin: 01/05/17 09:44 Dose: 650 mg Albuterol/Ipratropium (Duoneb 3 Mg/0.5 Mg (3 Ml) Ud) 3 ml INH RQ6 [facility] Last Admin: 01/13/17 13:52 Dose: Not Given Guaifenesin (Robitussin) 100 mg PO Q4H PRN PRN Reason: Cough Last Admin: 01/05/17 12:02 Dose: 100 mg Tigecycline 50 mg/ Sodium (Chloride) 100 mls @ 100 mls/hr IV Q12H [facility] Last Admin: 01/13/17 11:01 Dose: 100 mls/hr Sodium Chloride (Sodium Chloride 0.9%) 1,000 mls @ 100 mls/hr IV .Q10H [facility]BE[facility] Methylprednisolone (Solu-Medrol) 40 mg IVP Q12 [facility] Last Admin: 01/13/17 09:31 Dose: 40 mg Mupirocin (Bactroban 2% Nasal) 0.5 gm JENNIFER BID [facility] Last Admin: 01/13/17 09:31 Dose: 0.5 gm Ondansetron HCl (Zofran Inj) 4 mg IVP Q6H PRN PRN Reason: Nausea/Vomiting Fluticasone/Salmeterol (Advair Diskus 250/50) 1 puff INH RQ12 [facility] Last Admin: 01/13/17 09:05 Dose: Not Given Sertraline HCl (Zoloft) 25 mg PO DAILY [facility] Last Admin: 01/13/17 09:31 Dose: 25 mg - Labs Labs: 01/08/17 11:15 01/08/17 11:15 PT 18.7 SECONDS (9.7-12.2) H 01/06/17 10:58 INR 1.6 01/06/17 10:58 APTT 50 SECONDS (21-34) H 01/03/17 11:24 - Constitutional Appears: Well - Head Exam Head Exam: ATRAUMATIC, NORMAL INSPECTION, NORMOCEPHALIC - Eye Exam Eye Exam: EOMI, Normal appearance, PERRL Pupil Exam: NORMAL ACCOMODATION, PERRL - ENT Exam ENT Exam: Mucous Membranes Moist, Normal Exam - Neck Exam Neck Exam: Full ROM, Normal Inspection. absent: Lymphadenopathy - Respiratory Exam Respiratory Exam: Decreased Breath Sounds - Cardiovascular Exam Cardiovascular Exam: REGULAR RHYTHM, +S1, +S2 - GI/Abdominal Exam GI & Abdominal Exam: Soft, Diminished Bowel Sounds - Rectal Exam Rectal Exam: Deferred Assessment and Plan - Assessment and Plan (Free Text) Plan: iv fluid for hypotension continue other Mx as ordered Dr. jamilah medina
[2017-01-14] MEDS: Albuterol-Ipratrop 3 mg / 0.5 (3 ml) UD INH SCH ×3 (01:02→19:29)
[2017-01-14] MEDS: Fluticasone-Salmeterol 250-50mcg Diskus INH SCH ×2 (08:04→19:30)
[2017-01-14] MEDS: Mupirocin 2% Ointment (NASAL) NAS SCH ×2 (10:10→18:20)
[2017-01-14] MEDS: MethylPREDNISolone 40 mg Vial IVP SCH ×2 (10:10→22:48)
--- NOTE | 2017-01-14 15:17 | CP.PCM.PN ---
Subjective - Date & Time of Evaluation Date of Evaluation: 01/14/17 Time of Evaluation: 11:20 - Subjective Subjective: clinically same Objective - Vital Signs/Intake and Output Vital Signs (last 24 hours): Temp Pulse Resp BP Pulse Ox 94.5 F L 87 18 84/55 L 100 01/14/17 07:20 01/14/17 07:20 01/14/17 07:20 01/14/17 07:20 01/14/17 07:20 Intake and Output: 01/14/17 01/14/17 06:59 18:59 Output Total 250 Balance -250 - Medications Medications: Current Medications Acetaminophen (Tylenol 325mg Tab) 650 mg PO Q6 PRN PRN Reason: Pain, moderate (4-7) Last Admin: 01/05/17 09:44 Dose: 650 mg Albuterol/Ipratropium (Duoneb 3 Mg/0.5 Mg (3 Ml) Ud) 3 ml INH RQ6 [facility] Last Admin: 01/14/17 08:04 Dose: Not Given Guaifenesin (Robitussin) 100 mg PO Q4H PRN PRN Reason: Cough Last Admin: 01/05/17 12:02 Dose: 100 mg Tigecycline 50 mg/ Sodium (Chloride) 100 mls @ 100 mls/hr IV Q12H [facility] Last Admin: 01/14/17 10:15 Dose: 100 mls/hr Sodium Chloride (Sodium Chloride 0.9%) 1,000 mls @ 100 mls/hr IV .Q10H [facility] Methylprednisolone (Solu-Medrol) 40 mg IVP Q12 [facility] Last Admin: 01/14/17 10:10 Dose: 40 mg Mupirocin (Bactroban 2% Nasal) 0.5 gm JENNIFER BID [facility] Last Admin: 01/14/17 10:10 Dose: 0.5 gm Ondansetron HCl (Zofran Inj) 4 mg IVP Q6H PRN PRN Reason: Nausea/Vomiting Fluticasone/Salmeterol (Advair Diskus 250/50) 1 puff INH RQ12 [facility] Last Admin: 01/14/17 08:04 Dose: Not Given Sertraline HCl (Zoloft) 25 mg PO DAILY [facility] Last Admin: 01/14/17 10:18 Dose: 25 mg - Labs Labs: 01/08/17 11:15 01/08/17 11:15 PT 18.7 SECONDS (9.7-12.2) H 01/06/17 10:58 INR 1.6 01/06/17 10:58 APTT 50 SECONDS (21-34) H 01/03/17 11:24 - Constitutional Appears: Well - Head Exam Head Exam: ATRAUMATIC, NORMAL INSPECTION, NORMOCEPHALIC - Eye Exam Eye Exam: EOMI, Normal appearance, PERRL Pupil Exam: NORMAL ACCOMODATION, PERRL - ENT Exam ENT Exam: Mucous Membranes Moist, Normal Exam - Neck Exam Neck Exam: Full ROM, Normal Inspection. absent: Lymphadenopathy - Respiratory Exam Respiratory Exam: Decreased Breath Sounds - Cardiovascular Exam Cardiovascular Exam: REGULAR RHYTHM, +S1, +S2 - GI/Abdominal Exam GI & Abdominal Exam: Soft, Diminished Bowel Sounds - Rectal Exam Rectal Exam: Deferred Assessment and Plan - Assessment and Plan (Free Text) Plan: DR. jamilah David continue meds as ordered
[2017-01-15] MEDS: Albuterol-Ipratrop 3 mg / 0.5 (3 ml) UD INH SCH ×4 (01:29→19:39)
[2017-01-15] MEDS: Fluticasone-Salmeterol 250-50mcg Diskus INH SCH (08:50)
--- NOTE | 2017-01-15 09:49 | CP.PCM.PN ---
Subjective - Date & Time of Evaluation Date of Evaluation: 01/15/17 Time of Evaluation: 09:10 - Subjective Subjective: PGY2 Medicine Note - Dr. Anh Herrera's service: Patient seen and examined at bedside this AM. Patient moaning and groaning and saying she does not want to be touched because it hurts her. Nurse reports unable to get IV access. Patient is hypotensive and also needs labs drawn. Patient's sister at bedside. Sister asking about alternative medicine. Objective - Vital Signs/Intake and Output Vital Signs (last 24 hours): Temp Pulse Resp BP Pulse Ox 97.3 F L 80 16 79/47 L 99 01/15/17 07:20 01/15/17 07:20 01/15/17 07:20 01/15/17 07:20 01/15/17 07:20 Intake and Output: 01/15/17 01/15/17 06:59 18:59 Intake Total 800 Output Total 0 Balance 800 - Medications Medications: Current Medications Acetaminophen (Tylenol 325mg Tab) 650 mg PO Q6 PRN PRN Reason: Pain, moderate (4-7) Last Admin: 01/05/17 09:44 Dose: 650 mg Albuterol/Ipratropium (Duoneb 3 Mg/0.5 Mg (3 Ml) Ud) 3 ml INH RQ6 [facility] Last Admin: 01/15/17 08:50 Dose: Not Given Guaifenesin (Robitussin) 100 mg PO Q4H PRN PRN Reason: Cough Last Admin: 01/05/17 12:02 Dose: 100 mg Tigecycline 50 mg/ Sodium (Chloride) 100 mls @ 100 mls/hr IV Q12H [facility] Last Admin: 01/14/17 22:47 Dose: 100 mls/hr Sodium Chloride (Sodium Chloride 0.9%) 1,000 mls @ 100 mls/hr IV .Q10H [facility] Last Admin: 01/15/17 06:55 Dose: 100 mls/hr Methylprednisolone (Solu-Medrol) 40 mg IVP Q12 [facility] Last Admin: 01/14/17 22:48 Dose: 40 mg Mupirocin (Bactroban 2% Nasal) 0.5 gm JENNIFER BID [facility] Last Admin: 01/14/17 18:20 Dose: 0.5 gm Ondansetron HCl (Zofran Inj) 4 mg IVP Q6H PRN PRN Reason: Nausea/Vomiting Fluticasone/Salmeterol (Advair Diskus 250/50) 1 puff INH RQ12 [facility] Last Admin: 01/15/17 08:50 Dose: Not Given Sertraline HCl (Zoloft) 25 mg PO DAILY [facility] Last Admin: 01/14/17 10:18 Dose: 25 mg - Labs Labs: 01/08/17 11:15 01/08/17 11:15 PT 18.7 SECONDS (9.7-12.2) H 01/06/17 10:58 INR 1.6 01/06/17 10:58 APTT 50 SECONDS (21-34) H 01/03/17 11:24 - Constitutional Appears: Non-toxic, No Acute Distress, Cachectic, Chronically Ill - Head Exam Head Exam: NORMAL INSPECTION - Eye Exam Eye Exam: EOMI - ENT Exam ENT Exam: Mucous Membranes Moist - Respiratory Exam Additional comments: unable to auscultate as patient is not cooperative - Cardiovascular Exam Cardiovascular Exam: REGULAR RHYTHM, +S1, +S2, Murmur - GI/Abdominal Exam GI & Abdominal Exam: Soft, Normal Bowel Sounds. absent: Tenderness - Extremities Exam Extremities Exam: Pedal Edema (b/l pitting edema in all extremities) - Neurological Exam Neurological Exam: Alert, Awake - Psychiatric Exam Psychiatric exam: Agitated - Skin Skin Exam: Normal Color, Warm Assessment and Plan - Assessment and Plan (Free Text) Assessment: 01/15: re-consulted Palliative Care nurse. No IV access. BPs dropping. Requested Midline insertion 01/13: Pending guardianship and hospice eval. Patient refusing blood work. 01/10:Still pending hospice decision, patient may have a guardianship issue. She is still refusing lab work, will try to keep patient comfortable for now. She is still DNR/DNI 01/09:Awaiting decision for possible hospice, spoke with the son at length who said he wants some time to make a decision. Will try to keep patient comfortable for now, continue current management though patient is refusing lab work. 01/07: Psych evaluation per Dr. Hua that patient is unable to make her medication decisions. Spoke to the sister at length about hospice care. 01/06: Unable to contact family, Psych consult to determine patient's ability to make medical decisions. Patient is now DNR/DNI signed paper work is in the chart Hypotension Need IV access to give fluids Patient refusing to drink or eat Bacteremia 01/02/17 blood culture - positive for E.Coli WBC and bands improved as of 01/08/17. Patient refusing blood work Tigecycline 50mg IVPB Q12H ID consult - Dr. David - help appreciated CXR 01/03/17 - right apical and upper lobe apacity probably represents some combincation of atelectasis and/or infiltrate. Mild right basilar atelectasis. Suspect mild left basilar atelectasis questionable small effusion. Pulmonology consult - Dr. Iinguez - help appreciated Coagulopathy This could be nutritional vs liver disease vas possibly metistatic disease. Spoke with Dr. Meier heme/onc consult. She has a possible right upper lobe mass but patient has refused bronchoscopy per Dr. Iniguez's note Anemia Refusing blood work and no IV access today 01/08 Hgb 8.4 01/03: Hbg 7.0, transfused 2 units, with 20 of Lasix after of given after the 1st tranfusion. 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 Iniguez CXR- 12/30/16- Worsening dense opacification seen within the right upper to mid lung zone as well as the left lung base with associated small to moderate left pleural effusion. Additional milder patchy consolidative changes at the right luing base and left hilar region. Diffuse increased interstitial markings with scattered nodules/ nodularity throughout both lungs CXR- 01/01/17- No significant interval change in RUL consolidation. Persistent cardiomegaly and pulmonary venous congestion. Suspect small left pleural effusion Duoneb Q6h PRN Solumedrol Q6h PRN Guaifenesin 100mg PO Q4h PRN ADvair 250/50mcg 1 puff INH Q12h [facility] Tigecycline 50mg IVPB Q12H Liver abnormalities 01/03: Hepatitis panel negative, parcentesis yesterday removed 1800 cc straw colored fluid, follow up studies. CT of liver shows multiple hypodense lesions, see emr for full report. Dr. George consulted. Consult GI- Dr. Ariel Abdominal CT- large abdominal and pelvic ascites. Anasarca. Moderate bilateral pleural effusions, consolidations and fibrosis. Nodular hepatic contour, may be cirrhosis. Indetermine 1.0cm left hepatic lobe and 1.1cm right inferior hepatic hypodense lesion. 7mm hypodensity within the anterior left hepatic lobe. Liver CT done- pending read Scheduled for IR paracentesis- f/u fluid studies Hx of CHF Previous ECHO 09/25/16: per Dr. Drake on last admission, Global Hypokenesis and LV dysfunction; EF 35%, Stage II diastolic dysfunction; No significant valve lesions Depression Psych consult - Dr. Hua - help appreciated Palliative Care consult - help appreciated Prophylactic Measure Protonix 40mg PO Daily [facility]
[2017-01-15] MEDS: MethylPREDNISolone 40 mg Vial IVP SCH ×3 (09:56→22:02)
[2017-01-15] MEDS: Mupirocin 2% Ointment (NASAL) NAS SCH ×2 (09:56→18:30)
--- NOTE | 2017-01-15 11:40 | CP.PCM.PN ---
Subjective - Date & Time of Evaluation Date of Evaluation: 01/15/17 Time of Evaluation: 11:20 - Subjective Subjective: bp dropping pt. refusing Iv access and also blood work up Objective - Vital Signs/Intake and Output Vital Signs (last 24 hours): Temp Pulse Resp BP Pulse Ox 97.3 F L 80 16 79/47 L 99 01/15/17 07:20 01/15/17 07:20 01/15/17 07:20 01/15/17 07:20 01/15/17 07:20 Intake and Output: 01/15/17 01/15/17 06:59 18:59 Intake Total 800 Output Total 0 Balance 800 - Medications Medications: Current Medications Acetaminophen (Tylenol 325mg Tab) 650 mg PO Q6 PRN PRN Reason: Pain, moderate (4-7) Last Admin: 01/05/17 09:44 Dose: 650 mg Albuterol/Ipratropium (Duoneb 3 Mg/0.5 Mg (3 Ml) Ud) 3 ml INH RQ6 [facility] Last Admin: 01/15/17 08:50 Dose: Not Given Guaifenesin (Robitussin) 100 mg PO Q4H PRN PRN Reason: Cough Last Admin: 01/05/17 12:02 Dose: 100 mg Tigecycline 50 mg/ Sodium (Chloride) 100 mls @ 100 mls/hr IV Q12H [facility] Last Admin: 01/15/17 10:43 Dose: Not Given Sodium Chloride (Sodium Chloride 0.9%) 1,000 mls @ 100 mls/hr IV .Q10H [facility] Last Admin: 01/15/17 06:55 Dose: 100 mls/hr Methylprednisolone (Solu-Medrol) 40 mg IVP Q12 [facility] Last Admin: 01/15/17 09:56 Dose: 40 mg Mupirocin (Bactroban 2% Nasal) 0.5 gm JENNIFER BID [facility] Last Admin: 01/15/17 09:56 Dose: 0.5 gm Ondansetron HCl (Zofran Inj) 4 mg IVP Q6H PRN PRN Reason: Nausea/Vomiting Fluticasone/Salmeterol (Advair Diskus 250/50) 1 puff INH RQ12 [facility] Last Admin: 01/15/17 08:50 Dose: Not Given Sertraline HCl (Zoloft) 25 mg PO DAILY [facility] Last Admin: 01/15/17 09:56 Dose: 25 mg - Labs Labs: 01/08/17 11:15 01/08/17 11:15 PT 18.7 SECONDS (9.7-12.2) H 01/06/17 10:58 INR 1.6 01/06/17 10:58 APTT 50 SECONDS (21-34) H 01/03/17 11:24 - Constitutional Appears: Well - Head Exam Head Exam: ATRAUMATIC, NORMAL INSPECTION, NORMOCEPHALIC - Eye Exam Eye Exam: EOMI, Normal appearance, PERRL Pupil Exam: NORMAL ACCOMODATION, PERRL - ENT Exam ENT Exam: Mucous Membranes Moist, Normal Exam - Neck Exam Neck Exam: Full ROM, Normal Inspection. absent: Lymphadenopathy - Respiratory Exam Respiratory Exam: Decreased Breath Sounds - Cardiovascular Exam Cardiovascular Exam: REGULAR RHYTHM, +S1, +S2 - GI/Abdominal Exam GI & Abdominal Exam: Soft, Diminished Bowel Sounds - Rectal Exam Rectal Exam: Deferred Assessment and Plan - Assessment and Plan (Free Text) Plan: Pt. refusing for examination as well Iv access DR. jamilah medina continue meds as ordered
[2017-01-16 01:13] VITALS: BP 89/59; PULSE 60; RESP 20; TEMP 98.2; O2SAT 93
[2017-01-16] MEDS: Albuterol-Ipratrop 3 mg / 0.5 (3 ml) UD INH SCH (01:34)
--- NOTE | 2017-01-16 04:15 | CP.PCM.PRO ---
Pronouncement of Note - Clinical Findings Physical Exam: No Response Verbal/Painful Stimuli, Absent Peripheral Pulses{ Carotid & Femoral}, Absent Heart & Breath Sounds, No Pupillary Light Reflex, No Corneal Reflex, Pupils Fixed & Dilated, Absence of Vital Signs - Pronouncement Time Time of Pronouncement of : 04:05 Additional Comments: On 01/16/17 at 4:05, the patient . Patients code status was DNR/DNI. The patient was not responsive to Verbal Stimuli or Painful Stimuli, her peripheral pulses were absent (Carotid & Femoral), her heart sounds and breath sounds were absent, there was no Pupillary light reflex, no corneal reflex, and pupils were fixed and dilated. There was an absence of all vital signs. The patients grandson Omkar and sister Vikas were contacted and will come to the hospital today. - Notifications Pronouncement Notifications: Family Notified, Atending Notified Carpenter Labor Supervisor Notified: No - Autopsy Autopsy Requested: No - [place] [id number]
--- NOTE | 2017-01-16 05:13 | CP.PCM.PN ---
Subjective - Date & Time of Evaluation Date of Evaluation: 01/16/17 Time of Evaluation: 02:20 - Subjective Subjective: HOUSE DOC NOTE Notified by STIVEN Medley to come evaluate patient at 2:20 due to change in mental status and increased lethargy. Code status is DNR/DNI. The patient was transferred from 6 to at roughly 2:10 am and STIVEN Medley notes that patient was more lethargic and less talkative than her prior status on 6T. Throughout the day she was noted to be more lively and alert. Upon entering room to examine patient, nursing and respiratory therapy were present. The patient was on BiPAP to assist her breathing. No IV access is present. She was awake, however very altered, only oriented to self (not place or time). She followed simple commands to raise her arm, but would not engage in conversation. She appeared very weak, with cold white skin at the b/l upper/ lower extremities. The patient was actively groaning and her breathing was very short/shallow. Attempts were made to measure BP, oxygen saturation, temperature , and pulse to no avail. Pulse was attempted via pulse ox at the b/l hands, doppler at the radial/femoral, and via palpation of the b/l radial + tibial. Auscultation of chest revealed very distant / weak heart beat. Nursing attempted to gain IV access, however multiple attempts were unsuccessful. Discussed with attending. Family was called and messages left at multiple numbers in the chart in order to inform family that patient was not doing well. I reached one family member however they hung up, saying "it was too late to call the house." Two of the #' s attempted were [phone] and [phone]. Later at 4:00, I was informed by RN that patients pupils were not fixed/ dilated. I came and pronounced patient at 4:05. I contacted the patients grandson Omkar and sister Vikas, who said they will come to the hospital today. Objective - Vital Signs/Intake and Output Vital Signs (last 24 hours): Temp Pulse Resp BP Pulse Ox 98.2 F 60 20 89/59 L 93 L 01/15/17 23:20 01/15/17 23:20 01/15/17 23:20 01/15/17 23:20 01/15/17 23:20 Intake and Output: 01/15/17 01/16/17 18:59 06:59 Intake Total 100 120 Output Total 0 0 Balance 100 120 - Medications Medications: Current Medications Acetaminophen (Tylenol 325mg Tab) 650 mg PO Q6 PRN PRN Reason: Pain, moderate (4-7) Last Admin: 01/16/17 00:28 Dose: 650 mg Albuterol/Ipratropium (Duoneb 3 Mg/0.5 Mg (3 Ml) Ud) 3 ml INH RQ6 [facility] Last Admin: 01/16/17 01:34 Dose: Not Given Guaifenesin (Robitussin) 100 mg PO Q4H PRN PRN Reason: Cough Last Admin: 01/05/17 12:02 Dose: 100 mg Tigecycline 50 mg/ Sodium (Chloride) 100 mls @ 100 mls/hr IV Q12H [facility] Last Admin: 01/15/17 22:03 Dose: Not Given Sodium Chloride (Sodium Chloride 0.9%) 1,000 mls @ 100 mls/hr IV .Q10H [facility] Last Admin: 01/15/17 06:55 Dose: 100 mls/hr Methylprednisolone (Solu-Medrol) 40 mg IVP Q12 [facility] Last Admin: 01/15/17 22:02 Dose: Not Given Mupirocin (Bactroban 2% Nasal) 0.5 gm JENNIFER BID [facility] Last Admin: 01/15/17 18:30 Dose: 0.5 gm Ondansetron HCl (Zofran Inj) 4 mg IVP Q6H PRN PRN Reason: Nausea/Vomiting Fluticasone/Salmeterol (Advair Diskus 250/50) 1 puff INH RQ12 [facility] Last Admin: 01/15/17 08:50 Dose: Not Given Sertraline HCl (Zoloft) 25 mg PO DAILY [facility] Last Admin: 01/15/17 09:56 Dose: 25 mg - Labs Labs: 01/08/17 11:15 01/08/17 11:15 PT 18.7 SECONDS (9.7-12.2) H 01/06/17 10:58 INR 1.6 01/06/17 10:58 APTT 50 SECONDS (21-34) H 01/03/17 11:24 - Additional Findings Additional findings: - Constitutional Appears: Non-toxic, Acute Distress, Cachectic, Chronically Ill -actively groaning, agitated - Head Exam Head Exam: NORMAL INSPECTION - Eye Exam Eye Exam: EOMI - ENT Exam ENT Exam: Mucous Membranes Dry - Respiratory Exam Additional comments: -BiPAP present. -Respirations extremely short/shallow (agonal) - Cardiovascular Exam Cardiovascular Exam: absent: REGULAR RHYTHM -Heart sounds very distant on auscultation of chest. S1/S2 could not be appreciated. -peripheral pulses not palpable at b/l upper/lower extremities. - GI/Abdominal Exam GI & Abdominal Exam: Soft, Normal Bowel Sounds. absent: Tenderness - Extremities Exam Extremities Exam: Pedal Edema (b/l pitting edema in all extremities) - Neurological Exam Neurological Exam: Awake (not alert) -Patient oriented to person, not place or time. -Follows simple commands to raise arms, however not engaging in conversation. - Psychiatric Exam Psychiatric exam: Agitated - Skin Skin Exam: absent: Normal color, Warm -b/l lower extremities extremely cool to touch, white in color. -b/l hands cool to palpation
== END 2017-01-16 06:30 | DRG 811 ==
LOC: C.ER 22:41 → C.9I 12-30 00:55 → C.3T 12-30 21:37 → C.5T 01-01 16:26 → C.6T 01-03 00:55 → C.5T 01-16 02:14
PROVIDERS: ADMIT Internal Medicine Nephrology; ATTEND Internal Medicine Nephrology
PROC: 30233N1 Transfusion of Nonautologous Red Blood Cells into Peripheral Vein, Percutaneous Approach (ICD-10-PCS; principal; 2016-12-30)
PROC: 0W9G3ZX Drainage of Peritoneal Cavity, Percutaneous Approach, Diagnostic (ICD-10-PCS; 2017-01-02)
PROC: BW40ZZZ Ultrasonography of Abdomen (ICD-10-PCS; 2017-01-02)
DX: D46.9 Myelodysplastic syndrome, unspecified (principal); J18.9 Pneumonia, unspecified organism; R18.8 Other ascites; I11.0 Hypertensive heart disease with heart failure; D70.9 Neutropenia, unspecified; I48.91 Unspecified atrial fibrillation; K74.69 Other cirrhosis of liver; G30.9 Alzheimer's disease, unspecified; F05 Delirium due to known physiological condition; I50.20 Unspecified systolic (congestive) heart failure; F02.81 Dementia in other diseases classified elsewhere, unspecified severity, with behavioral disturbance; J44.9 Chronic obstructive pulmonary disease, unspecified; Z88.0 Allergy status to penicillin; R53.82 Chronic fatigue, unspecified; R13.10 Dysphagia, unspecified; R91.1 Solitary pulmonary nodule; Z66 Do not resuscitate; I25.9 Chronic ischemic heart disease, unspecified; M16.51 Unilateral post-traumatic osteoarthritis, right hip; H54.8 Legal blindness, as defined in USA; Z53.29 Procedure and treatment not carried out because of patient's decision for other reasons; Z87.19 Personal history of other diseases of the digestive system; Z88.6 Allergy status to analgesic agent; Z88.1 Allergy status to other antibiotic agents; Z88.8 Allergy status to other drugs, medicaments and biological substances